=== PATIENT | female | born 1935 | race Caucasian/White ===

== ENCOUNTER 2016-08-29 14:50 | Inpatient (IN) | payer MEDICARE, SELFPAY ==
[2016-08-29] MEDS ORDERED: Diltiazem 25 MG/5 ML SDV IVPUSH ONE ×2 (15:23→17:50)
[2016-08-29] MEDS ORDERED: Diltiazem 125 MG in Sodium Chloride 0.9% 100 ML IV SCH (15:30)
[2016-08-29] MEDS ORDERED: Acetaminophen 325 MG Tab PO PRN (17:07)
[2016-08-29] MEDS: Furosemide 20 MG Tab PO SCH (17:33)
[2016-08-29] MEDS: Fluticasone/Salmeterol 250-50 MCG Inhalation Powder 14/Diskus INH SCH ×2 (17:34→20:43)
[2016-08-29] MEDS: Warfarin 5 MG Tab PO SCH (17:34)
[2016-08-29] MEDS: Metoprolol Succinate 50 MG Tab.ER PO SCH (18:19)
[2016-08-30] MEDS: Furosemide 20 MG Tab PO SCH (08:37)
[2016-08-30] MEDS: Metoprolol Succinate 50 MG Tab.ER PO SCH (08:37)
[2016-08-30] MEDS: Fluticasone/Salmeterol 250-50 MCG Inhalation Powder 14/Diskus INH SCH ×2 (09:01→20:25)
[2016-08-30] MEDS: Warfarin 5 MG Tab PO SCH (10:24)
--- NOTE | 2016-08-30 13:19 | PCM.PN ---
- General Info Date of Service: 08/30/16 Functional Status: Reports: pain controlled, tolerating diet. Denies: ambulating, new symptoms - Review of Systems General: Reports: Weakness HEENT: Reports: no symptoms Pulmonary: Denies: shortness of breath, wheezing Cardiovascular: Reports: Dyspnea on Exertion Gastrointestinal: Reports: No symptoms Genitourinary: Reports: no symptoms Musculoskeletal: Reports: no symptoms Skin: Reports: other (Traumatic small laceration right hand, skin tear) Neurological: Reports: Weakness, Gait Disturbance (Uses walker). Denies: Confusion, Dizziness, Numbness, Syncope Psychiatric: Denies: confusion - Patient Data Vitals - most recent: Last Vital Signs Temp 96.8 F 08/30/16 11:00 Pulse 85 08/30/16 11:00 Resp 20 08/30/16 11:00 BP 101/45 L 08/30/16 11:00 Pulse Ox 93 L 08/30/16 11:00 Weight - most recent: 166 lb 12.8 oz I&O - last 24 hours: Intake & Output 08/29/16 08/30/16 08/30/16 22:59 06:59 14:59 Intake Total 150 383 Balance 150 383 Lab Results last 24 hrs: Laboratory Results - last 24 hr 08/29/16 08/29/16 08/29/16 Range/Units 14:35 14:35 14:35 WBC 9.9 (5.0-10.0) 10^3/uL RBC 4.83 (3.80-5.50) 10^6/uL Hgb 13.1 (12.0-16.0) g/dL Hct 41.6 (37.0-47.0) % MCV 86.1 (82.0-92.0) fL MCH 27.1 (27.0-31.0) pg MCHC 31.5 L (32.0-36.0) g/dL RDW 16.1 H (11.5-14.5) % Plt Count 248 (150-300) 10^3/uL MPV 10.1 (7.4-10.4) fL Neut % (Auto) 80.2 H (50.0-70.0) % Lymph % (Auto) 11.2 L (20.0-40.0) % [place] % (Auto) 7.8 (2.0-8.0) % Eos % (Auto) 0.7 L (1.0-3.0) % Baso % (Auto) 0.1 (0.0-1.0) % Neut # (Auto) 7.9 H (2.5-7.0) 10^3/uL Lymph # (Auto) 1.1 (1.0-4.0) 10^3/uL [place] # (Auto) 0.8 (0.1-0.8) 10^3/uL Eos # (Auto) 0.1 (0.1-0.3) 10^3/uL Baso # (Auto) 0.0 (0.0-0.1) 10^3/uL PT 17.9 H (8.9-11.4) SEC INR 1.7 H (0.9-1.1) Sodium 145 (136-145) mmol/L Potassium 4.0 (3.3-5.3) mmol/L Chloride 108 (98-115) mmol/L Carbon Dioxide 25.8 (21.0-32.0) mmol/L BUN 43 H (6-25) mg/dL Creatinine 1.76 H (0.51-1.17) mg/dL Est Cr Clr Drug Dosing 19.15 mL/min Estimated GFR (MDRD) 28 mL/min Glucose 125 H (70-110) mg/dL Calcium 9.0 (8.7-10.3) mg/dL Total Bilirubin 0.7 (0.2-1.0) mg/dL AST 35 (15-37) U/L ALT 33 (12-78) U/L Alkaline Phosphatase 108 (46-116) IU/L Troponin I 0.06 (0.00-0.070) ng/mL B-Natriuretic Peptide (0-100) pg/mL Total Protein 6.5 (6.4-8.2) g/dL Albumin 2.66 L (3.00-4.80) g/dL 08/30/16 08/30/16 Range/Units 07:00 07:00 WBC (5.0-10.0) 10^3/uL RBC (3.80-5.50) 10^6/uL Hgb (12.0-16.0) g/dL Hct (37.0-47.0) % MCV (82.0-92.0) fL MCH (27.0-31.0) pg MCHC (32.0-36.0) g/dL RDW (11.5-14.5) % Plt Count (150-300) 10^3/uL MPV (7.4-10.4) fL Neut % (Auto) (50.0-70.0) % Lymph % (Auto) (20.0-40.0) % [place] % (Auto) (2.0-8.0) % Eos % (Auto) (1.0-3.0) % Baso % (Auto) (0.0-1.0) % Neut # (Auto) (2.5-7.0) 10^3/uL Lymph # (Auto) (1.0-4.0) 10^3/uL [place] # (Auto) (0.1-0.8) 10^3/uL Eos # (Auto) (0.1-0.3) 10^3/uL Baso # (Auto) (0.0-0.1) 10^3/uL PT 16.6 H (8.9-11.4) SEC INR 1.6 H (0.9-1.1) Sodium 146 H (136-145) mmol/L Potassium 3.5 (3.3-5.3) mmol/L Chloride 109 (98-115) mmol/L Carbon Dioxide 27.5 (21.0-32.0) mmol/L BUN 42 H (6-25) mg/dL Creatinine 1.77 H (0.51-1.17) mg/dL Est Cr Clr Drug Dosing 19.05 mL/min Estimated GFR (MDRD) 27 mL/min Glucose 111 H (70-110) mg/dL Calcium 8.3 L (8.7-10.3) mg/dL Total Bilirubin (0.2-1.0) mg/dL AST (15-37) U/L ALT (12-78) U/L Alkaline Phosphatase (46-116) IU/L Troponin I (0.00-0.070) ng/mL B-Natriuretic Peptide 1130 H (0-100) pg/mL Total Protein (6.4-8.2) g/dL Albumin (3.00-4.80) g/dL Med Orders - Current: Current Medications Acetaminophen (Tylenol) 325 mg PO Q6H PRN PRN Reason: Pain Furosemide (Lasix) 20 mg PO DAILY [facility] Last Admin: 08/30/16 08:37 Dose: 20 mg Metoprolol Succinate (Toprol Xl) 50 mg PO DAILY [facility] Last Admin: 08/30/16 08:37 Dose: 50 mg Fluticasone/Salmeterol (Advair Diskus 250-50) 1 puff INH BID [facility] Last Admin: 08/30/16 09:01 Dose: 1 puff Warfarin Sodium (Coumadin) 5 mg PO DAILY [facility] Last Admin: 08/30/16 10:24 Dose: 5 mg Discontinued Medications Diltiazem HCl (Diltiazem) 15 mg IVPUSH ONETIME ONE Stop: 08/29/16 15:24 Last Admin: 08/29/16 15:43 Dose: 15 mg Diltiazem HCl (Diltiazem) 5 mg IVPUSH ONETIME ONE Stop: 08/29/16 17:51 Last Admin: 08/29/16 18:19 Dose: 5 mg Diltiazem HCl 125 mg/ Sodium (Chloride) 125 mls @ 5 mls/hr IV TITRATE AGATHA; 5 MG /HR PRN Reason: Protocol Last Infusion: 08/29/16 21:40 Dose: 5 mg/hr, 5 mls/hr - Exam Quality Assessment: No: supplemental oxygen General: alert, oriented, cooperative, no acute distress, other (Patient very unkept in appearance, body odor, dirt under nails, skin tear left hand) Neck: supple, no JVD Lungs: Crackles Cardiovascular: Irregular Rhythm, Tachycardia (Tachycardia, improved). No: Regular Rhythm Abdomen: bowel sounds present, soft, no tenderness, no distension Back Exam: No: CVA tenderness (L), CVA tenderness (R), vertebral tenderness Peripheral Pulses: 2+: radial (L), radial (R) Skin: dry, other (Skin overall dry and uncapped--dirt under fingernails, skin very thin). No: intact Wound/Incisions: no drainage, other (1 cm linear skin tear left dorsal hand/ thumb) Neurological: no new focal deficit, normal tone, sensation intact Psy/Mental Status: alert, normal affect, labile mood - Problem List Review Problem List Initiated/Reviewed/Updated: Yes - My Orders Last 24 Hours: My Active Orders 08/29/16 17:07 Acetaminophen [Tylenol] 325 mg PO Q6H PRN 08/29/16 17:15 Fluticasone/Salmeterol [Advair Diskus 250-50] 1 puff INH BID Furosemide [Lasix] 20 mg PO DAILY 08/29/16 17:30 Warfarin [Coumadin] 5 mg PO DAILY 08/29/16 17:45 Metoprolol Succinate [Toprol XL] 50 mg PO DAILY 08/30/16 11:58 Patient Status [ADT] Routine Consult to Sow Farm Manager [CONS] Routine PT Evaluation and Treatment [CONS] Routine 08/31/16 11:58 INR,PT,PROTHROMBIN TIME [COAG] DAILY 09/01/16 11:58 INR,PT,PROTHROMBIN TIME [COAG] DAILY 09/02/16 11:58 INR,PT,PROTHROMBIN TIME [COAG] DAILY - Plan Plan:: Brief history; This is an 81-year-old female was evaluated by [place] provider yesterday for routine appointment and was admitted atrial fibrillation when she was found to be in rapid ventricular response about 1 55 bpm. Her 12-lead EKG in the [place] clinic demonstrated atrial fibrillation with RVR with a rate of 155. Patient was asymptomatic and tolerating the rate fairly well. She did not hemodynamically stable. She does have chronic atrial fibrillation and was on 3 mg of Coumadin daily along with metoprolol succinate 200 mg daily however there is some confusion regarding if she is taking her medications or not. She was admitted directly to the cardiac care unit and a Cardizem drip was started after initial CCB IVP. See admitting provider history and physical for greater detail CODE STATUS DO NOT RESUSCITATE IMPRESSION/PLAN Atrial fibrillation, RVR, acute on chronic, rate control strategy, heart rate now 90s to 110. Discontinued diltiazem drip, added beta marci yesterday, we' ll keep her on 50 mg by mouth succinate daily--holding parameters. Coumadin 3 mg by mouth daily. INR 1.7, continue telemetry but may move from CCU. Echocardiogram 2008 shows EF of 35%, we'll need repeat echocardiogram. [id number] : High. Ischemic cardiomyopathy--important to keep breakdown, troponin negative. No chest pain. Hx of HTN; actually slightly low right now. Metoprolol parameters given. Hypercholesterolemia; taking atorvastatin. Hx of COPD; pharmacy consultation for education, apparently patient taking Advair as needed. Chronic kidney disease, stage III, Vulnerable adult; SS CS Self care deficit, quite profound on admission, social organization professor consultation. She was recently discharged from [facility] in [place]. She resides at home in [place], [place], with her son. Her daughter lives next door--likely will have to go to [place] however family financial situation may make it difficult. May have to place in a vulnerable adult report. Overall plan today, rate control strategy--metoprolol, remove diltiazem drip, start back up on Coumadin--as the patient may not have been taking this at home. No need for Lovenox bridging, continue telemetry but may move from CCU, heart rate parameters. SS consult.
[2016-08-30] MEDS ORDERED: Furosemide 40 MG/4 ML VIAL IVPUSH ONE (16:00)
[2016-08-30] MEDS: Magnesium Hydroxide 400 MG/5 ML Susp 30 ML Cup PO PRN (20:25)
[2016-08-30] MEDS ORDERED: Enoxaparin 60 MG/0.6 ML Syringe SUBCUT SCH (21:30)
[2016-08-30] MEDS ORDERED: Enoxaparin 100 MG/1 ML Syringe SUBCUT ONE (22:39)
[2016-08-31] MEDS: Metoprolol Succinate 50 MG Tab.ER PO SCH (08:24)
[2016-08-31] MEDS: Furosemide 20 MG Tab PO SCH (08:24)
[2016-08-31] MEDS: Fluticasone/Salmeterol 250-50 MCG Inhalation Powder 14/Diskus INH SCH ×2 (08:54→20:38)
[2016-08-31] MEDS ORDERED: Metoprolol Succinate 25 MG Tab.ER PO ONE (09:16)
--- NOTE | 2016-08-31 10:48 | PCM.PN ---
- General Info Date of Service: 08/31/16 Functional Status: Reports: pain controlled, tolerating diet, new symptoms ( odor to urine--chronic--obtain UA today. ), other (HR low 100's). Denies: ambulating - Review of Systems General: Reports: Weakness. Denies: Fever HEENT: Reports: no symptoms Pulmonary: Denies: pleuritic chest pain, cough, sputum Cardiovascular: Reports: Dyspnea on Exertion Gastrointestinal: Reports: No symptoms Genitourinary: Reports: incontinence (urine ) Musculoskeletal: Reports: no symptoms Skin: Reports: dryness, bruising Neurological: Reports: Pre-Existing Deficit, Weakness, Gait Disturbance. Denies : Dizziness, Tremors, Difficulty Walking, Change in Speech Psychiatric: Reports: no symptoms - Patient Data Vitals - most recent: Last Vital Signs Temp 96.8 F 08/31/16 06:57 Pulse 120 H 08/31/16 08:54 Resp 22 H 08/31/16 06:57 BP 121/38 L 08/31/16 08:24 Pulse Ox 96 08/31/16 08:54 Weight - most recent: 166 lb 12.8 oz I&O - last 24 hours: Intake & Output 08/30/16 08/31/16 08/31/16 22:59 06:59 14:59 Intake Total 150 75 Balance 150 75 Lab Results last 24 hrs: Laboratory Results - last 24 hr 08/30/16 08/31/16 08/31/16 Range/Units 07:00 07:15 07:25 ESR 6 (0-20) mm/hr PT 16.6 H 20.6 H (8.9-11.4) SEC INR 1.6 H 2.0 H (0.9-1.1) Med Orders - Current: Current Medications Acetaminophen (Tylenol) 325 mg PO Q6H PRN PRN Reason: Pain Furosemide (Lasix) 20 mg PO DAILY [facility] Last Admin: 08/31/16 08:24 Dose: 20 mg Magnesium Hydroxide (Milk Of Magnesia) 30 ml PO DAILY PRN PRN Reason: Constipation Last Admin: 08/30/16 20:25 Dose: 30 ml Metoprolol Succinate (Toprol Xl) 75 mg PO DAILY [facility] Fluticasone/Salmeterol (Advair Diskus 250-50) 1 puff INH BID [facility] Last Admin: 08/31/16 08:54 Dose: 1 puff Warfarin Sodium (Coumadin) 4 mg PO DAILY@1800 [facility] Discontinued Medications Diltiazem HCl (Diltiazem) 15 mg IVPUSH ONETIME ONE Stop: 08/29/16 15:24 Last Admin: 08/29/16 15:43 Dose: 15 mg Diltiazem HCl (Diltiazem) 5 mg IVPUSH ONETIME ONE Stop: 08/29/16 17:51 Last Admin: 08/29/16 18:19 Dose: 5 mg Enoxaparin Sodium (Lovenox) 75 mg SUBCUT Q12HR AGATHA Enoxaparin Sodium (Lovenox) 75 mg SUBCUT QPM AGATHA Enoxaparin Sodium (Lovenox) 75 mg SUBCUT ONETIME ONE Stop: 08/30/16 22:40 Last Admin: 08/30/16 22:57 Dose: 75 mg Furosemide (Lasix) 20 mg IVPUSH NOW ONE Stop: 08/30/16 16:01 Last Admin: 08/30/16 15:58 Dose: 20 mg Diltiazem HCl 125 mg/ Sodium (Chloride) 125 mls @ 5 mls/hr IV TITRATE AGATHA; 5 MG /HR PRN Reason: Protocol Last Infusion: 08/29/16 21:40 Dose: 5 mg/hr, 5 mls/hr Metoprolol Succinate (Toprol Xl) 50 mg PO DAILY [facility] Last Admin: 08/31/16 08:24 Dose: 50 mg Metoprolol Succinate (Toprol Xl) 25 mg PO ONETIME ONE Stop: 08/31/16 09:17 Warfarin Sodium (Coumadin) 5 mg PO DAILY [facility] Last Admin: 08/30/16 10:24 Dose: 5 mg Warfarin Sodium (Coumadin) 5 mg PO DAILY@1800 [facility] - Exam General: alert, oriented (nurses did report some confusion last shifts) Neck: supple, no thyromegaly. No: JVD Lungs: Clear to auscultation, Normal respiratory effort Cardiovascular: Irregular Rhythm, Tachycardia (Female) Exam: Deferred Back Exam: No: CVA tenderness (L), CVA tenderness (R) Skin: No: rash Wound/Incisions: healing well Neurological: no new focal deficit Psy/Mental Status: alert, normal affect, normal mood - Problem List Review Problem List Initiated/Reviewed/Updated: Yes - My Orders Last 24 Hours: My Active Orders 08/30/16 11:58 Patient Status [ADT] Routine Consult to Salary And Wage Administrator [CONS] Routine PT Evaluation and Treatment [CONS] Routine 08/31/16 09:18 UA W/MICROSCOPIC [URIN] Routine 08/31/16 18:00 Warfarin [Coumadin] 4 mg PO DAILY@1800 09/01/16 05:11 BASIC METABOLIC PANEL,BMP [CHEM] AM CBC WITH AUTO DIFF [HEME] AM 09/01/16 09:16 Metoprolol Succinate [Toprol XL] 75 mg PO DAILY 09/01/16 11:58 INR,PT,PROTHROMBIN TIME [COAG] DAILY 09/02/16 11:58 INR,PT,PROTHROMBIN TIME [COAG] DAILY - Plan Plan:: Brief history; This is an 81-year-old female was evaluated by [place] provider yesterday for routine appointment and was admitted atrial fibrillation when she was found to be in rapid ventricular response about 1 55 bpm. Her 12-lead EKG in the [place] clinic demonstrated atrial fibrillation with RVR with a rate of 155. Patient was asymptomatic and tolerating the rate fairly well. She did not hemodynamically stable. She does have chronic atrial fibrillation and was on 3 mg of Coumadin daily along with metoprolol succinate 200 mg daily however there is some confusion regarding if she is taking her medications or not. She was admitted directly to the cardiac care unit and a Cardizem drip was started after initial CCB IVP. See admitting provider history and physical for greater detail CODE STATUS DO NOT RESUSCITATE IMPRESSION/PLAN Atrial fibrillation, RVR, acute on chronic, rate control strategy, heart rate around 100-110 depending on activity; Now off diltiazem drip, added beta marci yesterday, Holding adequate BP will increase to 75 succinate daily-- holding parameters. DC lovenox, Coumadin 4 mg by mouth today now with therapueutic INR continue telemetry. Echocardiogram 2008 shows EF of 35%, ECHO today--some concern if Pericardial fluid--order ESR. [id number]: High. Lasix. Ischemic cardiomyopathy--important to keep HR down. troponin negative. No chest pain. Hx of HTN; actually slightly low right now. Metoprolol parameters given; however adequate to increase BB Hypercholesterolemia; taking atorvastatin. Hx of COPD; pharmacy consultation for education, apparently patient taking Advair as needed. Chronic kidney disease, stage III, stable Vulnerable adult; SS CS Self care deficit, quite profound on admission, social media assistant consultation. She was recently discharged from [facility] in [place]. She resides at home in [place], [place], with her son. Her daughter lives next door--likely will have to go to [place] however family financial situation may make it difficult. May have to place in a vulnerable adult report. Overall plan today, Increase BB for improved rate control strategy--metoprolol, DC lovenox, continue telemetry, heart rate parameters. SS consult. May have to back to [place], will get UA today.
[2016-08-31] MEDS ORDERED: Warfarin 5 MG Tab PO SCH (18:00)
[2016-08-31] MEDS: Warfarin 2 MG Tab PO SCH (18:19)
[2016-08-31] MEDS: Magnesium Hydroxide 400 MG/5 ML Susp 30 ML Cup PO PRN (18:20)
[2016-08-31] MEDS ORDERED: Enoxaparin 100 MG/1 ML Syringe SUBCUT SCH (21:00)
[2016-08-31] MEDS: Ciprofloxacin 500 MG Tab PO SCH (23:27)
[2016-09-01] MEDS: Ciprofloxacin 500 MG Tab PO SCH ×2 (08:48→20:34)
[2016-09-01] MEDS: Furosemide 20 MG Tab PO SCH (08:48)
[2016-09-01] MEDS: Fluticasone/Salmeterol 250-50 MCG Inhalation Powder 14/Diskus INH SCH ×2 (08:54→20:33)
[2016-09-01] MEDS ORDERED: Metoprolol Succinate 50 MG Tab.ER PO SCH (09:16)
--- NOTE | 2016-09-01 11:12 | PCM.PN ---
- General Info Date of Service: 09/01/16 Functional Status: Reports: pain controlled. Denies: ambulating, new symptoms - Review of Systems General: Reports: Weakness HEENT: Reports: no symptoms Pulmonary: Reports: shortness of breath (Mild shortness of breath) Cardiovascular: Reports: Dyspnea on Exertion (. Abran Guerrier or warm and he is not nurses cardiac) Gastrointestinal: Reports: No symptoms Genitourinary: Reports: incontinence. Denies: dysuria, pain, urgency Musculoskeletal: Denies: back pain, joint swelling Skin: Reports: dryness, bruising, other (Healing skin tear left base of thumb) Neurological: Reports: Confusion (Mild confusion at times however lucid today), Pre-Existing Deficit, Difficulty Walking, Weakness, Gait Disturbance. Denies: Dizziness, Seizure, Syncope Psychiatric: Reports: confusion - Patient Data Vitals - most recent: Last Vital Signs Temp 97.1 F 09/01/16 06:17 Pulse 96 09/01/16 08:49 Resp 20 09/01/16 06:17 BP 142/69 H 09/01/16 08:49 Pulse Ox 97 09/01/16 09:03 Weight - most recent: 166 lb 3 oz I&O - last 24 hours: Intake & Output 08/31/16 09/01/16 09/01/16 22:59 06:59 14:59 Intake Total 50 100 Balance 50 100 Lab Results last 24 hrs: Laboratory Results - last 24 hr 08/31/16 09/01/16 09/01/16 Range/Units 13:45 07:30 07:30 WBC 8.8 (5.0-10.0) 10^3/uL RBC 4.41 (3.80-5.50) 10^6/uL Hgb 12.5 (12.0-16.0) g/dL Hct 38.3 (37.0-47.0) % MCV 86.9 (82.0-92.0) fL MCH 28.2 (27.0-31.0) pg MCHC 32.5 (32.0-36.0) g/dL RDW 17.2 H (11.5-14.5) % Plt Count 188 (150-300) 10^3/uL MPV 10.4 (7.4-10.4) fL Neut % (Auto) 71.6 H (50.0-70.0) % Lymph % (Auto) 14.6 L (20.0-40.0) % [place] % (Auto) 10.2 H (2.0-8.0) % Eos % (Auto) 3.6 H (1.0-3.0) % Baso % (Auto) 0.0 (0.0-1.0) % Neut # (Auto) 6.3 (2.5-7.0) 10^3/uL Lymph # (Auto) 1.3 (1.0-4.0) 10^3/uL [place] # (Auto) 0.9 H (0.1-0.8) 10^3/uL Eos # (Auto) 0.3 (0.1-0.3) 10^3/uL Baso # (Auto) 0.0 (0.0-0.1) 10^3/uL PT INR (0.9-1.1) Sodium 145 (136-145) mmol/L Potassium 4.8 (3.3-5.3) mmol/L Chloride 110 (98-115) mmol/L Carbon Dioxide 26.3 (21.0-32.0) mmol/L BUN 46 H (6-25) mg/dL Creatinine 1.68 H (0.51-1.17) mg/dL Est Cr Clr Drug Dosing 20.07 mL/min Estimated GFR (MDRD) 29 mL/min Glucose 105 (70-110) mg/dL Calcium 8.2 L (8.7-10.3) mg/dL Specimen Type Urin[place]ath Urine Color Yellow (YELLOW) Urine Appearance Cloudy H (CLEAR) Urine pH 6.5 (5.0-9.0) Ur Specific [place] 1.020 (1.005-1.030) Urine Protein >=300 H (NEGATIVE) mg/dL Urine Glucose (UA) Negative (NEGATIVE) mg/dL Urine Ketones Negative (NEGATIVE) mg/dL Urine Occult Blood Large H (NEGATIVE) Urine Nitrite Negative (NEGATIVE) Urine Bilirubin Negative (NEGATIVE) Urine Urobilinogen 0.2 (0.2-1.0) E.U./dL Ur Leukocyte Esterase Large H (NEGATIVE) Urine RBC 40-50 H /HPF Urine WBC 30-40 H /HPF Urine Bacteria Moderate H (NONE TO FEW) /HPF 09/01/16 Range/Units 08:05 WBC (5.0-10.0) 10^3/uL RBC (3.80-5.50) 10^6/uL Hgb (12.0-16.0) g/dL Hct (37.0-47.0) % MCV (82.0-92.0) fL MCH (27.0-31.0) pg MCHC (32.0-36.0) g/dL RDW (11.5-14.5) % Plt Count (150-300) 10^3/uL MPV (7.4-10.4) fL Neut % (Auto) (50.0-70.0) % Lymph % (Auto) (20.0-40.0) % [place] % (Auto) (2.0-8.0) % Eos % (Auto) (1.0-3.0) % Baso % (Auto) (0.0-1.0) % Neut # (Auto) (2.5-7.0) 10^3/uL Lymph # (Auto) (1.0-4.0) 10^3/uL [place] # (Auto) (0.1-0.8) 10^3/uL Eos # (Auto) (0.1-0.3) 10^3/uL Baso # (Auto) (0.0-0.1) 10^3/uL PT TNP INR 2.6 H (0.9-1.1) Sodium (136-145) mmol/L Potassium (3.3-5.3) mmol/L Chloride (98-115) mmol/L Carbon Dioxide (21.0-32.0) mmol/L BUN (6-25) mg/dL Creatinine (0.51-1.17) mg/dL Est Cr Clr Drug Dosing mL/min Estimated GFR (MDRD) mL/min Glucose (70-110) mg/dL Calcium (8.7-10.3) mg/dL Specimen Type Urine Color (YELLOW) Urine Appearance (CLEAR) Urine pH (5.0-9.0) Ur Specific [place] (1.005-1.030) Urine Protein (NEGATIVE) mg/dL Urine Glucose (UA) (NEGATIVE) mg/dL Urine Ketones (NEGATIVE) mg/dL Urine Occult Blood (NEGATIVE) Urine Nitrite (NEGATIVE) Urine Bilirubin (NEGATIVE) Urine Urobilinogen (0.2-1.0) E.U./dL Ur Leukocyte Esterase (NEGATIVE) Urine RBC /HPF Urine WBC /HPF Urine Bacteria (NONE TO FEW) /HPF Med Orders - Current: Current Medications Acetaminophen (Tylenol) 325 mg PO Q6H PRN PRN Reason: Pain Ciprofloxacin (Ciprofloxacin Hcl) 500 mg PO BID [facility] Last Admin: 09/01/16 08:48 Dose: 500 mg Furosemide (Lasix) 20 mg PO DAILY [facility] Last Admin: 09/01/16 08:48 Dose: 20 mg Magnesium Hydroxide (Milk Of Magnesia) 30 ml PO DAILY PRN PRN Reason: Constipation Last Admin: 08/31/16 18:20 Dose: 30 ml Metoprolol Succinate (Toprol Xl) 75 mg PO DAILY [facility] Last Admin: 09/01/16 08:49 Dose: 75 mg Fluticasone/Salmeterol (Advair Diskus 250-50) 1 puff INH BID [facility] Last Admin: 09/01/16 08:54 Dose: 1 puff Warfarin Sodium (Coumadin) 4 mg PO DAILY@1800 [facility] Last Admin: 08/31/16 18:19 Dose: 4 mg Discontinued Medications Diltiazem HCl (Diltiazem) 15 mg IVPUSH ONETIME ONE Stop: 08/29/16 15:24 Last Admin: 08/29/16 15:43 Dose: 15 mg Diltiazem HCl (Diltiazem) 5 mg IVPUSH ONETIME ONE Stop: 08/29/16 17:51 Last Admin: 08/29/16 18:19 Dose: 5 mg Enoxaparin Sodium (Lovenox) 75 mg SUBCUT Q12HR [facility] Enoxaparin Sodium (Lovenox) 75 mg SUBCUT QPM [facility] Enoxaparin Sodium (Lovenox) 75 mg SUBCUT ONETIME ONE Stop: 08/30/16 22:40 Last Admin: 08/30/16 22:57 Dose: 75 mg Furosemide (Lasix) 20 mg IVPUSH NOW ONE Stop: 08/30/16 16:01 Last Admin: 08/30/16 15:58 Dose: 20 mg Diltiazem HCl 125 mg/ Sodium (Chloride) 125 mls @ 5 mls/hr IV TITRATE AGATHA; 5 MG /HR PRN Reason: Protocol Last Infusion: 08/29/16 21:40 Dose: 5 mg/hr, 5 mls/hr Metoprolol Succinate (Toprol Xl) 50 mg PO DAILY [facility] Last Admin: 08/31/16 08:24 Dose: 50 mg Metoprolol Succinate (Toprol Xl) 25 mg PO ONETIME ONE Stop: 08/31/16 09:17 Last Admin: 08/31/16 14:23 Dose: 25 mg Warfarin Sodium (Coumadin) 5 mg PO DAILY [facility] Last Admin: 08/30/16 10:24 Dose: 5 mg Warfarin Sodium (Coumadin) 5 mg PO DAILY@1800 [facility] - Exam General: alert, oriented Neck: supple, no JVD Lungs: Crackles (Left base) Cardiovascular: Irregular Rhythm. No: Tachycardia (Heart rate 90 to 100s) Abdomen: bowel sounds present, soft, no tenderness, no distension Back Exam: No: CVA tenderness (L), CVA tenderness (R) Wound/Incisions: healing well (Bruise left corner mouth healing, will wait on that for one are RVR it'll U. of the renal arteries with weight with anesthesia no yesterday at goal yesterday an EF of 15-20% no EF rales E. EF the left of note pleural effusion there is no evidence of pericardial effusion he is) Neurological: cranial nerves intact Psy/Mental Status: alert, normal mood - Problem List Review Problem List Initiated/Reviewed/Updated: Yes - My Orders Last 24 Hours: My Active Orders 08/31/16 18:00 Warfarin [Coumadin] 4 mg PO DAILY@1800 09/01/16 09:16 Metoprolol Succinate [Toprol XL] 75 mg PO DAILY 09/02/16 11:58 INR,PT,PROTHROMBIN TIME [COAG] DAILY - Plan Plan:: Brief history; This is an 81-year-old female was evaluated by [place] provider yesterday for routine appointment and was admitted atrial fibrillation when she was found to be in rapid ventricular response about 1 55 bpm. Her 12-lead EKG in the [facility] clinic demonstrated atrial fibrillation with RVR with a rate of 155. Patient was asymptomatic and tolerating the rate fairly well. She did not hemodynamically stable. She does have chronic atrial fibrillation and was on 3 mg of Coumadin daily along with metoprolol succinate 200 mg daily however there is some confusion regarding if she is taking her medications or not. She was admitted directly to the cardiac care unit and a Cardizem drip was started after initial CCB IVP. See admitting provider history and physical for greater detail CODE STATUS DO NOT RESUSCITATE IMPRESSION/PLAN Atrial fibrillation, RVR, acute on chronic, rate control strategy, heart rate have improved to around 95-105. Now off diltiazem drip, had been slowly increasing her metoprolol succinate. Will increase to 100 mg today--blood pressure very adequate. Coumadin 4 mg by mouth today now with therapueutic INR. continue telemetry. Echocardiogram 2008 shows EF of 35%, ECHO this admission shows EF 15-20% however no evidence of paracardial effusion. Left pleural effusion is present; [id number]: High. Due to pleural effusion we'll give 20 mg IV Lasix today. Aggressive incentives spirometer. Left pleural effusion; Lasix today x1. Ischemic cardiomyopathy--important to keep HR down. troponin negative. No chest pain. Hx of HTN; increasing metoprolol for rate control due to A. fib. Hypercholesterolemia; taking atorvastatin. Hx of COPD; pharmacy consultation for education, apparently patient taking Advair as needed. Chronic kidney disease, stage III, stable , creatinine 1.68 Vulnerable adult; SS CS Self care deficit, quite profound on admission, social work msw consultation. She was recently discharged from [facility] in [place]. She resides at home in [place], [place], with her son. Her daughter lives next door--likely will have to go to [place] however family financial situation may make it difficult. May have to place in a vulnerable adult report. Overall plan today, Increase BB for improved rate control strategy--metoprolol, continue telemetry, heart rate parameters. Patient can be discharged likely tomorrow to [place]. Lasix today x1. Continue on ciprofloxacin for urinary tract infection. Prognosis is poor due to severe low ejection fraction. Patient not a candidate for internal cardiac defibrillator due to age, comorbidities.
[2016-09-01] MEDS ORDERED: Metoprolol Succinate 25 MG Tab.ER PO ONE (11:21)
[2016-09-01] MEDS: Warfarin 2 MG Tab PO SCH (18:10)
[2016-09-02] MEDS: Fluticasone/Salmeterol 250-50 MCG Inhalation Powder 14/Diskus INH SCH ×2 (08:20→20:41)
[2016-09-02] MEDS: Magnesium Hydroxide 400 MG/5 ML Susp 30 ML Cup PO PRN (08:21)
[2016-09-02] MEDS: Furosemide 20 MG Tab PO SCH (08:22)
[2016-09-02] MEDS: Ciprofloxacin 500 MG Tab PO SCH ×2 (08:22→20:41)
[2016-09-02] MEDS ORDERED: Metoprolol Succinate 25 MG Tab.ER PO ONE (08:26)
[2016-09-02] MEDS ORDERED: Metoprolol Succinate 50 MG Tab.ER PO SCH (09:00)
--- NOTE | 2016-09-02 11:58 | PCM.PN ---
- General Info Date of Service: 09/02/16 Functional Status: Reports: pain controlled, tolerating diet, incentive spirometry. Denies: ambulating, new symptoms - Review of Systems General: Reports: Weakness HEENT: Reports: no symptoms Pulmonary: Denies: cough Cardiovascular: Reports: Palpitations, Dyspnea on Exertion. Denies: Edema Gastrointestinal: Reports: No symptoms Genitourinary: Reports: other (odor to urine--chronic). Denies: dysuria Musculoskeletal: Reports: no symptoms Skin: Reports: dryness, bruising Neurological: Reports: Pre-Existing Deficit, Difficulty Walking, Weakness, Gait Disturbance. Denies: Numbness, Paresthesia Psychiatric: Reports: no symptoms - Patient Data Vitals - most recent: Last Vital Signs Temp 97.9 F 09/02/16 10:54 Pulse 71 09/02/16 10:54 Resp 20 09/02/16 10:54 BP 112/68 09/02/16 10:54 Pulse Ox 94 L 09/02/16 10:54 Weight - most recent: 166 lb 3 oz I&O - last 24 hours: Intake & Output 09/01/16 09/02/16 09/02/16 22:59 06:59 14:59 Intake Total 100 0 Balance 100 0 Lab Results last 24 hrs: Laboratory Results - last 24 hr 09/02/16 Range/Units 07:20 PT 24.8 H (8.9-11.4) SEC INR 2.4 H (0.9-1.1) [place] Results last 24 hrs: Microbiology 08/31/16 13:45 Urine Culture - Preliminary Urine, Catheterized Enterococcus Species Med Orders - Current: Current Medications Acetaminophen (Tylenol) 325 mg PO Q6H PRN PRN Reason: Pain Ciprofloxacin (Ciprofloxacin Hcl) 500 mg PO BID [facility] Last Admin: 09/02/16 08:22 Dose: 500 mg Furosemide (Lasix) 20 mg PO DAILY [facility] Last Admin: 09/02/16 08:22 Dose: 20 mg Magnesium Hydroxide (Milk Of Magnesia) 30 ml PO DAILY PRN PRN Reason: Constipation Last Admin: 09/02/16 08:21 Dose: 30 ml Metoprolol Succinate (Toprol Xl) 100 mg PO DAILY [facility] Last Admin: 09/02/16 08:23 Dose: 100 mg Metoprolol Succinate (Toprol Xl) 125 mg PO DAILY [facility] Fluticasone/Salmeterol (Advair Diskus 250-50) 1 puff INH BID [facility] Last Admin: 09/02/16 08:20 Dose: 1 puff Warfarin Sodium (Coumadin) 4 mg PO DAILY@1800 [facility] Last Admin: 09/01/16 18:10 Dose: 4 mg Discontinued Medications Diltiazem HCl (Diltiazem) 15 mg IVPUSH ONETIME ONE Stop: 08/29/16 15:24 Last Admin: 08/29/16 15:43 Dose: 15 mg Diltiazem HCl (Diltiazem) 5 mg IVPUSH ONETIME ONE Stop: 08/29/16 17:51 Last Admin: 08/29/16 18:19 Dose: 5 mg Enoxaparin Sodium (Lovenox) 75 mg SUBCUT Q12HR [facility] Enoxaparin Sodium (Lovenox) 75 mg SUBCUT QPM [facility] Enoxaparin Sodium (Lovenox) 75 mg SUBCUT ONETIME ONE Stop: 08/30/16 22:40 Last Admin: 08/30/16 22:57 Dose: 75 mg Furosemide (Lasix) 20 mg IVPUSH NOW ONE Stop: 08/30/16 16:01 Last Admin: 08/30/16 15:58 Dose: 20 mg Diltiazem HCl 125 mg/ Sodium (Chloride) 125 mls @ 5 mls/hr IV TITRATE AGATHA; 5 MG /HR PRN Reason: Protocol Last Infusion: 08/29/16 21:40 Dose: 5 mg/hr, 5 mls/hr Metoprolol Succinate (Toprol Xl) 50 mg PO DAILY [facility] Last Admin: 08/31/16 08:24 Dose: 50 mg Metoprolol Succinate (Toprol Xl) 25 mg PO ONETIME ONE Stop: 08/31/16 09:17 Last Admin: 08/31/16 14:23 Dose: 25 mg Metoprolol Succinate (Toprol Xl) 75 mg PO DAILY [facility] Last Admin: 09/01/16 08:49 Dose: 75 mg Metoprolol Succinate (Toprol Xl) 25 mg PO ONETIME ONE Stop: 09/01/16 11:22 Last Admin: 09/01/16 11:49 Dose: 25 mg Metoprolol Succinate (Toprol Xl) 25 mg PO ONETIME ONE Stop: 09/02/16 08:27 Last Admin: 09/02/16 08:41 Dose: 25 mg Warfarin Sodium (Coumadin) 5 mg PO DAILY [facility] Last Admin: 08/30/16 10:24 Dose: 5 mg Warfarin Sodium (Coumadin) 5 mg PO DAILY@1800 [facility] - Exam Quality Assessment: No: supplemental oxygen General: alert, oriented, cooperative, no acute distress HEENT: Other (dry mucous membranes). No: Mucous membr. moist/pink Neck: supple Lungs: Clear to auscultation, Normal respiratory effort Cardiovascular: Irregular Rhythm, Tachycardia Wound/Incisions: healing well, no drainage Neurological: no new focal deficit Psy/Mental Status: alert, normal affect, normal mood - Problem List Review Problem List Initiated/Reviewed/Updated: Yes - My Orders Last 24 Hours: My Active Orders 09/02/16 09:00 Metoprolol Succinate [Toprol XL] 100 mg PO DAILY 09/03/16 05:11 BASIC METABOLIC PANEL,BMP [CHEM] AM CBC WITH AUTO DIFF [HEME] AM 09/03/16 09:00 Metoprolol Succinate [Toprol XL] 125 mg PO DAILY - Plan Plan:: Brief history; This is an 81-year-old female was evaluated by [place] provider yesterday for routine appointment and was admitted atrial fibrillation when she was found to be in rapid ventricular response about 1 55 bpm. Her 12-lead EKG in the [place] clinic demonstrated atrial fibrillation with RVR with a rate of 155. Patient was asymptomatic and tolerating the rate fairly well. She did not hemodynamically stable. She does have chronic atrial fibrillation and was on 3 mg of Coumadin daily along with metoprolol succinate 200 mg daily however there is some confusion regarding if she is taking her medications or not. She was admitted directly to the cardiac care unit and a Cardizem drip was started after initial CCB IVP. See admitting provider history and physical for greater detail CODE STATUS DO NOT RESUSCITATE IMPRESSION/PLAN Atrial fibrillation, RVR, acute on chronic, rate control strategy, heart rate have improved to around 95-105. Now off diltiazem drip, had been slowly increasing her metoprolol succinate. Will increase to 125 mg today--blood pressure/MAP adequate. Coumadin 4 mg by mouth today now with therapueutic INR. continue telemetry. Echocardiogram 2008 shows EF of 35%, ECHO this admission shows EF 15-20% however no evidence of paracardial effusion. Left pleural effusion is present; [id number]: High. A little on dry side with increasing BUN/ creatinine ratio likely prerenal, HOLD Lasix--push oral fluids. Aggressive incentives spirometer. Left pleural effusion; aggressive incentive spirometer--especially since holding Lasix Ischemic cardiomyopathy--important to keep HR down. troponin negative. No chest pain. very poor EF--poor prognosis. Prognosis is poor due to severe low ejection fraction. Patient not a candidate for internal cardiac defibrillator due to age, comorbidities. Hx of HTN; increasing metoprolol for rate control due to A. fib. Hypercholesterolemia; taking atorvastatin. Hx of COPD; pharmacy consultation for education, apparently patient taking Advair as needed. Chronic kidney disease, stage III, stable , creatinine 1.68 Vulnerable adult; SS CS Self care deficit, quite profound on admission, director social service consultation. She was recently discharged from [facility] in [place]. She resides at home in [place], [place], with her son. Her daughter lives next door--plan was to send her back to [place] today however heart rate not optimal inpatient a little prerenal--likely discharge Monday.
[2016-09-02] MEDS: Warfarin 2 MG Tab PO SCH (18:12)
[2016-09-03] MEDS: Fluticasone/Salmeterol 250-50 MCG Inhalation Powder 14/Diskus INH SCH ×2 (08:15→20:38)
[2016-09-03] MEDS: Ciprofloxacin 500 MG Tab PO SCH ×2 (08:15→20:38)
[2016-09-03] MEDS: Metoprolol Succinate 50 MG Tab.ER PO SCH (08:15)
--- NOTE | 2016-09-03 12:33 | PN ---
09/03/2016 PATIENT NAME: DEBI BALDWIN SUBJECTIVE: This is an 81-year-old female patient who was admitted from the clinic with concerns about atrial fibrillation with rapid ventricular response. The patient was actually admitted to the cardiac intensive care unit on a Cardizem drip. Since then, her heart rate has come down. Her Cardizem drip has been discontinued. She states today she is feeling fine. She does have a little dementia, but she is very pleasant, answers simple questions very easily. She states she has no chest pain. She feels fine. She denies any swelling to her ankles. She states she ate breakfast with no problems. OBJECTIVE: VITAL SIGNS: Today, the patient's weight is 167 pounds, temperature is 97.4, pulse is 98, blood pressure is 124/74. The patient's respiratory rate is 20, oxygen saturations are 97% on room air. GENERAL: This is an elderly female, in no acute distress. CARDIAC: Heart sounds are distant. Irregularly irregular consistent with atrial fibrillation. LUNGS: Sounds are clear in upper lobes, diminished at bilateral bases. ABDOMEN: Her abdomen is soft, nontender, and nondistended. Bowel sounds present x4. EXTREMITIES: No pedal edema noted on exam. LABORATORY DATA: The patient's lab work that she had today, CBC shows a white count within normal range at 8.5, hemoglobin is stable at 12.5. The patient's platelet count is 177. The patient's INR yesterday was 2.4. Her chemistry panel that was obtained today is unremarkable except for shows that she has chronic kidney disease. Her BUN is elevated at 50, creatinine is 1.91, GFR is 25, otherwise unremarkable. IMPRESSION/PLAN: 1. Chronic atrial fibrillation with recent episode of atrial fibrillation with rapid ventricular response. Plan; the patient's pulse on exam today was 98. Her Cardizem drip has been discontinued. We will continue with Toprol- XL 125 mg orally daily. Continue with Coumadin. She got 4 mg daily ordered. INR yesterday was 2.4. We will continue with telemetry. She has been in atrial fibrillation with a rate between 80 and 100 mostly. The patient's recent echocardiogram showed an ejection fraction of 15% to 20%. We are currently holding the patient's Lasix at this time, mostly due to just her chronic kidney disease or repeat a basic metabolic panel in the morning. 2. Urinary tract infection. Plan; the patient's urinalysis that she had taken a few days ago showed moderate bacteria. We will continue with Cipro 500 mg twice daily orally. 3. Left pleural effusion. Plan; seems to be stable. We will continue with incentive spirometer every two hours while awake. 4. History of hypertension, stable. The patient's blood pressure today is 124/74. We will continue with Toprol-XL 125 mg daily. Continue to monitor blood pressures. 5. History of hyperlipidemia. Plan; the patient's atorvastatin is on hold for now. 6. We will consider restarting it back up. The patient has been pretty stable. 7. History of chronic obstructive pulmonary disease. Plan; continue with Advair Diskus twice daily. 8. History of chronic kidney disease stage IV. The patient's BUN today was 50 creatinine was 1.91. GFR of 25. We will repeat a basic metabolic panel tomorrow. May consider some IV hydration if no improvement. Overall plan; the patient seems to be doing well. Plan for a discharge to [facility] in [place] on Monday. /[id number]/MODL
[2016-09-03] MEDS ORDERED: EPINEPHrine 1:10,000 1 MG/10 ML Syringe IVPUSH PRN (16:54)
[2016-09-03] MEDS ORDERED: Nitroglycerin 0.4 MG Tab.SL SL PRN (16:54)
[2016-09-03] MEDS ORDERED: Lidocaine 2% 100 MG/5 ML Syringe IVPUSH PRN (16:54)
[2016-09-03] MEDS ORDERED: Atropine 0.1 MG/ML 10 ML Syringe IVPUSH PRN (16:54)
[2016-09-03] MEDS: Warfarin 2 MG Tab PO SCH (18:02)
[2016-09-04] MEDS: Fluticasone/Salmeterol 250-50 MCG Inhalation Powder 14/Diskus INH SCH ×2 (08:58→20:37)
[2016-09-04] MEDS: Ciprofloxacin 500 MG Tab PO SCH ×2 (08:59→20:37)
[2016-09-04] MEDS: Metoprolol Succinate 50 MG Tab.ER PO SCH (08:59)
--- NOTE | 2016-09-04 14:06 | PN ---
09/04/2016 PATIENT NAME: DEBI BALDWIN HISTORY OF PRESENT ILLNESS: This is an 81-year-old female patient who had an episode of atrial fibrillation with rapid ventricular response. The patient was found to have a heart rate in the 150s with her atrial fibrillation and was admitted to the hospital in the cardiac intensive care unit. She was started on a Cardizem drip. She has been stable for the past few days. Her Cardizem drip was discontinued two days ago. She has been on oral medications and doing well. Today, she denies any chest pains or shortness of breath. She states she feels really good today. She actually asked me when she can go home. OBJECTIVE: VITAL SIGNS: Today, her weight is 168 pounds, temperature is 96.5, pulse is 102, her pulse on telemetry is anywhere from 80-110, blood pressure today is 134/67, respiratory rate is 20, and oxygen saturations are 97% on room air. GENERAL: This is an elderly white female, in no acute distress. LUNGS: Lung sounds are clear in upper lobes, diminished at bilateral bases. HEART: Heart tones, no murmurs identified, irregularly irregular consistent with atrial fibrillation. ABDOMEN: Soft, nontender, nondistended. Bowel sounds present x4. EXTREMITIES: No pedal edema noted on exam. LABORATORY DATA: The patient's lab work that was obtained today: Basic metabolic panel showed a sodium slightly elevated at 146, potassium 4.7, chloride 109, BUN 49, creatinine 1.72, GFR is 28, calcium 8.0, glucose 132. The patient did have an episode of shortness of breath yesterday. Troponins were obtained yesterday afternoon. Her CK-MB within normal range at 0.60. Troponin was also within normal range at 0.05. Repeat troponin 6 hours later was also negative at 0.04. IMPRESSION AND PLAN: 1. Chronic atrial fibrillation with recent episode of rapid ventricular response. Plan: The patient's pulse today on exam was at 102. Cardizem drip has been discontinued now for greater than 48 hours. She is on oral beta-marci of Toprol-XL 125 mg daily. We will continue with telemetry. She continues on Coumadin daily. She is receiving 4 mg Coumadin daily. Her INR that was obtained on Monday was 2.4. The patient's most recent echocardiogram showed an ejection fraction of 15%-20%. I am going to restart the patient's Lasix 20 mg orally daily. Her GFR has been stable. The patient did have some shortness of breath yesterday. Troponins were negative. Original troponin and CK were negative. Repeat troponin was also negative at 0.04. I did obtain a chest x-ray today. The impression reads per Radiology, unchanged opacification of the left lung base. If clinically warranted, this could be further evaluated with a contrast enhanced CT scan of the chest. The patient seems to be doing well. 2. Urinary tract infection. Plan: Continue with Cipro 500 mg twice a day orally. This can be discontinued tomorrow. 3. Left pleural effusion. Plan: Chest x-ray that was obtained today says opacification, seems to be stable, unchanged from previous. We will continue with incentive spirometer every 2 hours while awake. 4. History of hypertension, stable. The patient's blood pressure today is 134/67. We will continue with Toprol-XL 125 mg daily. Continue to monitor blood pressures. 5. History of hyperlipidemia. Plan: I am going to restart the patient's atorvastatin 20 mg daily. 6. History of chronic obstructive pulmonary disease. Plan: Continue with Advair Diskus twice daily. 7. History of chronic kidney disease, stage 4. The patient's BUN today is elevated at 49, creatinine at 1.72, and GFR is 28, that seem to be stable. OVERALL PLAN: The patient seems to be doing well. Chest x-ray is unchanged. Kidney function is stable. Heart rate has been controlled. Plan for discharge tomorrow to [facility]. /[id number]/MODL
[2016-09-04] MEDS: Warfarin 2 MG Tab PO SCH (18:22)
[2016-09-04] MEDS ORDERED: atorvaSTATin 10 MG Tab PO SCH (21:00)
[2016-09-05 07:06] VITALS: BP 124/76
[2016-09-05] MEDS: Fluticasone/Salmeterol 250-50 MCG Inhalation Powder 14/Diskus INH SCH (08:36)
[2016-09-05] MEDS: Ciprofloxacin 500 MG Tab PO SCH (08:37)
[2016-09-05] MEDS: Metoprolol Succinate 50 MG Tab.ER PO SCH (08:37)
[2016-09-05] MEDS: Furosemide 20 MG Tab PO SCH (08:41)
[2016-09-05] MEDS ORDERED: Warfarin 2 MG Tab PO SCH (18:00)
--- NOTE | 2016-09-06 09:02 | DISCH ---
ADMITTING DIAGNOSIS: Atrial fibrillation with rapid ventricular response. FINAL DIAGNOSES: 1. Chronic atrial fibrillation with rate controlled. 2. Recent urinary tract infection, resolved. 3. Left pleural effusion, stable. BRIEF HISTORY AND ESSENTIAL PHYSICAL FINDINGS: This is an 81-year-old female patient who had an episode of atrial fibrillation with rapid ventricular response. She was seen in the clinic and found to have a pulse rate of 155 on EKG. At that time, the patient was admitted to the hospital in the cardiac intensive care unit. The patient was started on a Cardizem drip. The Cardizem drip has been discontinued several days ago. She has been on oral medications and rate controlled at this point. She has been doing well. She denies any chest pain or any shortness of breath. SIGNIFICANT LABS XRAYS AND CONSULTATION FINDINGS: An echocardiogram that was obtained on 08/31/2016 showed ejection fraction at 15% to 20%. Most recent EKG that she had while in the hospital was obtained on 09/03/2016, showed atrial fibrillation with rapid ventricular response at 114 beats per minute, otherwise unremarkable. The patient's last chest x-ray that was obtained on 09/04/2016, the impression reads unchanged opacification of the left lung base. This is unchanged from prior study. It is not clear whether this is related to overlying dense soft tissue, elevated diaphragm, infiltrate, atelectasis, or effusion. The right lung is clear per Radiology. The patient's CBC that was obtained upon admission on 08/29/2016 white count was within normal range at 9.9, hemoglobin was 13.1, INR 1.7. Chemistry panel was unremarkable except for patient's BUN was elevated at 43, creatinine 1.76, GFR 28, otherwise unremarkable. Brain natriuretic peptide that was obtained on 08/30/2016 was very elevated at 1130. Lab work that was most recent to discharge was obtained on 09/03/2016, CBC showed a white count within normal range at 8.5, hemoglobin stable at 12.5, platelet count 177. The patient's last INR was obtained on day of discharge, 09/05/2016, which was 3.7. Chemistry panel that was obtained on 09/04/2016 showed sodium slightly elevated at 146, potassium 4.7, chloride 109, BUN 49, creatinine 1.72, GFR was 28, calcium 8.0. The patient did have troponin, CK-MB obtained on 09/03/2016, CK-MB within normal range at 0.60, troponin was 0.05. Repeat troponin obtained on the same day 6 hours later was also negative at 0.04. The patient had a urinalysis obtained on 08/31/2016 which showed moderate amount of bacteria. COURSE IN HOSPITAL WITH COMPLICATIONS IF ANY: The patient's heart rate was controlled throughout the hospital stay, blood pressure was stable. The patient had a urinary tract infection that was treated with Cipro. INRs have been fairly stable. CONDITION TREATMENT AND FINAL DISPOSITION ON DISCHARGE AND PROGNOSIS: Condition is stable. Final disposition will be the [facility]. IMPRESSION AND PLAN: 1. Chronic atrial fibrillation with recent episode of rapid ventricular response. Plan: The patient's pulse today is 108. We are going to send the patient back to [place] on Toprol-XL 150 mg daily. We will continue the patient on Coumadin. INR today on discharge was slightly elevated at 3.7, will decrease the dose of Coumadin to 3 mg daily. We will do daily INRs until stabilized. The patient's most recent echocardiogram showed ejection fraction of 15% to 20%. We will continue with Lasix 20 mg orally daily. Troponins that were obtained a few days ago were negative. The patient's chest x-ray has been stable with left lower lobe pleural effusion. 2. Urinary tract infection, resolved. The patient has completed a five day course of Cipro. 3. Left pleural effusion. Plan: The patient's chest x-rays have been unchanged. 4. History of hypertension, stable. Plan: We will continue the patient on Toprol-XL 150 mg daily. Blood pressure has been stable. 5. History of hyperlipidemia. Plan: Continue patient on atorvastatin 20 mg daily. 6. History of chronic obstructive pulmonary disease. Plan: Continue with Advair Diskus twice daily. 7. History of chronic kidney disease, stage 4. The patient's BUN yesterday was 49, creatinine 1.72, GFR 28. This has been stable throughout the hospital stay. OVERALL PLAN: The patient has been doing well. Chest x-ray is unchanged. Kidney function has been stable. Heart rate has been controlled on oral medications. We will discharge the patient to the [facility] today. /[id number]/MODL MTDD
== END 2016-09-05 12:43 | DRG 309 ==
LOC: KA.MS 14:50
PROVIDERS: ATTEND Family Medicine
DX: I48.91 Unspecified atrial fibrillation (principal); J90 Pleural effusion, not elsewhere classified; N39.0 Urinary tract infection, site not specified; I50.20 Unspecified systolic (congestive) heart failure; N18.4 Chronic kidney disease, stage 4 (severe); J44.9 Chronic obstructive pulmonary disease, unspecified; I12.9 Hypertensive chronic kidney disease with stage 1 through stage 4 chronic kidney disease, or unspecified chronic kidney disease; I25.5 Ischemic cardiomyopathy; E78.00 Pure hypercholesterolemia, unspecified; Z79.899 Other long term (current) drug therapy; Z66 Do not resuscitate
CPT/HCPCS: 36415; 36416; 71010; 71020; 80048; 80053; 81001; 82550; 82553; 83880; 84484; 85025; 85610; 85651; 87086; 87088; 87186; 93005; 93306; 94640; 97162-GP; 97530-GP; A9270-GY; J1650; J1940; J3490; J7050

== ENCOUNTER 2016-09-29 15:30 | Emergency (ER) | payer MEDICARE, OTHER, SELFPAY ==
--- NOTE | 2016-09-29 16:06 | EDM.PDOC ---
ED HPI GENERAL MEDICAL PROBLEM - General Chief Complaint: Respiratory Problem Stated Complaint: SOB WITH COUGHING UP BLOOD Time Seen by Provider: 09/29/16 15:44 Source of Information: Reports: Patient, Fdc Records History Limitations: Reports: No Limitations - History of Present Illness INITIAL COMMENTS - FREE TEXT/NARRATIVE: PER NURSING FACILITY, PT DEVELOPED SOB TODAY WITH INCREASE RATE AND RESP EFFORT. COUGHED UP BLOOD THIS AFTERNOON. SHE DENIES CP, ADDISON, N/V/D Duration: Hour(s): Location: Reports: Chest Severity: Mild Improves with: Reports: None Worsens with: Reports: Breathing Associated Symptoms: Reports: Cough, Shortness of Breath - Related Data Allergies Allergy/AdvReac Type Severity Reaction Status Date / Time No Known Drug Allergies Allergy none Verified 09/29/16 16:33 Home Meds: Home Meds Acetaminophen [Pain Relief] 325 mg PO Q6H PRN 05/31/14 [History] Fluticasone/Salmeterol [Advair 250-50 Diskus] 1 puff INH BID 05/31/14 [History] Furosemide [Furosemide] 20 mg PO DAILY 05/31/14 [History] atorvaSTATin [Lipitor] 20 mg PO BEDTIME 05/31/14 [History] Calcium Carbonate/Vitamin D3 [Calcium 500 + Vit D 400] 1 each PO DAILY 08/29/16 [History] Cranberry Extract [Cranberry] 250 mg PO DAILY 08/29/16 [History] Ferrous Sulfate 325 mg PO DAILY 08/29/16 [History] Multivitamins w-Iron/Ca/FA/Min [Thera M Plus] 1 tab PO DAILY 08/29/16 [History] Nitroglycerin [Nitrostat] 0.4 mg SL Q5M 08/29/16 [History] Metoprolol Succinate [Toprol XL] 150 mg PO DAILY #30 tab.er 09/05/16 [Rx] Ascorbic Acid [Vitamin C] 500 mg PO DAILY 09/29/16 [History] Docusate Sodium/Sennosides [Senna Plus] 1 tab PO BID 09/29/16 [History] Potassium Chloride [Klor-Con 10] 10 meq PO DAILY 09/29/16 [History] Spironolactone [Aldactone] 1 tab PO 1800 09/29/16 [History] Warfarin [Coumadin] 2.5 mg PO SUTUTHSA 09/29/16 [History] Warfarin [Coumadin] 5 mg PO MOWEFR 09/29/16 [History] traZODone HCl [Trazodone HCl] 12.5 mg PO BEDTIME 09/29/16 [History] Past Medical History HEENT History: Reports: Impaired Vision Cardiovascular History: Reports: Afib, High Cholesterol, Hypertension, [place], Other (See Below) Other Cardiovascular History: ischemic cardiomyopathy Respiratory History: Reports: COPD Gastrointestinal History: Reports: Hemorrhoids Genitourinary History: Reports: Urinary Incontinence, Other (See Below) Other Genitourinary History: CKD Stage 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: Musculoskeletal History: Reports: Arthritis Hematologic History: Reports: Other (See Below) Other Hematologic History: pt takes iron tablet daily - Past Surgical History Cardiovascular Surgical History: Reports: Carotid Stents, Other (See Below) GI Surgical History: Reports: Other (See Below) Social & Family History - Family History Family Medical History: Noncontributory - Tobacco Use Smoking Status *Q: Never Smoker Second Hand Smoke Exposure: No - Alcohol Use Days Per Week of Alcohol Use: 0 - Recreational Drug Use Recreational Drug Use: No ED ROS GENERAL - Review of Systems Review Of Systems: ROS reveals no pertinent complaints other than HPI. Constitutional: Reports: No Symptoms HEENT: Reports: No Symptoms Respiratory: Reports: Shortness of Breath, Cough, Hemoptysis Cardiovascular: Reports: No Symptoms Endocrine: Reports: No Symptoms GI/Abdominal: Reports: No Symptoms : Reports: No Symptoms Musculoskeletal: Reports: No Symptoms Skin: Reports: No Symptoms Neurological: Reports: No Symptoms Psychiatric: Reports: No Symptoms Hematologic/Lymphatic: Reports: No Symptoms Immunologic: Reports: No Symptoms ED EXAM, GENERAL - Physical Exam Exam: See Below Exam Limited By: No Limitations General Appearance: Alert, WD/WN, No Apparent Distress Eye Exam: Bilateral Eye: Normal Inspection Nose: Normal Inspection, No Blood Throat/Mouth: Normal Inspection, Normal Oropharynx, No Airway Compromise Head: Atraumatic, Normocephalic Neck: Normal Inspection Respiratory/Chest: No Respiratory Distress, Rales ([place]) Cardiovascular: Irregularly Irregular GI/Abdominal: Normal Bowel Sounds, Soft, Non-Tender Back Exam: Normal Inspection. No: CVA Tenderness (L), CVA Tenderness (R) Extremities: Pedal Edema (3+ BILAT) Neurological: Alert, Disoriented Psychiatric: Normal Affect, Normal Mood Skin Exam: Warm, Dry, Intact, Normal Color, No Rash Lymphatic: No Adenopathy EKG INTERPRETATION EKG Date: 09/29/16 Time: 16:50 Rhythm: a-fib [place]: RAD-right axis deviation Course - Orders/Labs/Meds Orders: Active Orders 24 hr Category Date Time Status EKG Documentation Completion [RC] ASDIRECTED Care 09/29/16 15:51 Ordered Chest 1V Frontal [CR] Stat Exams 09/29/16 15:49 Ordered B-TYPE NATRIURETIC PEPTIDE,BNP [CHEM] Stat Lab 09/29/16 15:51 Ordered CBC WITH AUTO DIFF [HEME] Stat Lab 09/29/16 15:49 Ordered COMPREHENSIVE METABOLIC PN,CMP [CHEM] Stat Lab 09/29/16 15:49 Ordered INR,PT,PROTHROMBIN TIME [COAG] Stat Lab 09/29/16 15:49 Ordered PTT,PARTIAL THROMBOPLSTIN TIME [COAG] Stat Lab 09/29/16 15:49 Ordered TROPONIN I [CHEM] Stat Lab 09/29/16 15:49 Ordered EKG 12 Lead [EK] Routine Ther 09/29/16 15:51 Ordered - Radiology Interpretation Free Text/Narrative:: CXR SHOWS CONGESTIVE FAILURE - Re-Assessments/Exams Free Text/Narrative Re-Assessment/Exam: 09/29/16 18:10 PT AFEBRILE, NONTOXIC APPEARING, VSS, SAT 95% ON 2 L NC. DISCUSSED CASE WITH DR PRINCE. WILL INCREASE LASIX AND ALDACTONE AND RETURN PT TO NURSING FACILITY. Departure - Departure Time of Disposition: 18:11 Disposition: DC/Tfer to Medicaid Nur Fac 64 Condition: fair Clinical Impression: Congestive heart failure Qualifiers: Congestive heart failure type: unspecified congestive heart failure type Congestive heart failure chronicity: acute on chronic Qualified Code(s): I50.9 - Heart failure, unspecified Atrial fibrillation Qualifiers: Atrial fibrillation type: chronic Qualified Code(s): I48.2 - Chronic atrial fibrillation - Discharge Information Instructions: Heart Failure, Atrial Fibrillation Additional Instructions: REVIEW CHANGES TO MEDICATION AND DR PRINCE WILL SEE PT TOMORROW - My Orders Last 24 Hours: My Active Orders 09/29/16 15:49 Chest 1V Frontal [CR] Stat CBC WITH AUTO DIFF [HEME] Stat COMPREHENSIVE METABOLIC PN,CMP [CHEM] Stat INR,PT,PROTHROMBIN TIME [COAG] Stat PTT,PARTIAL THROMBOPLSTIN TIME [COAG] Stat TROPONIN I [CHEM] Stat 09/29/16 15:51 EKG Documentation Completion [RC] ASDIRECTED B-TYPE NATRIURETIC PEPTIDE,BNP [CHEM] Stat EKG 12 Lead [EK] Routine - Assessment/Plan Last 24 Hours: My Active Orders 09/29/16 15:49 Chest 1V Frontal [CR] Stat CBC WITH AUTO DIFF [HEME] Stat COMPREHENSIVE METABOLIC PN,CMP [CHEM] Stat INR,PT,PROTHROMBIN TIME [COAG] Stat PTT,PARTIAL THROMBOPLSTIN TIME [COAG] Stat TROPONIN I [CHEM] Stat 09/29/16 15:51 EKG Documentation Completion [RC] ASDIRECTED B-TYPE NATRIURETIC PEPTIDE,BNP [CHEM] Stat EKG 12 Lead [EK] Routine Assessment:: CHF Plan: RETURN TO NURSING FACILITY PER DR PRINCE
[2016-09-29 16:42] LABS: CHLORIDE,CL 107 mmol/L (98-115)
[2016-09-29 16:50] LABS: SODIUM,NA 146 mmol/L (136-145)
[2016-09-29] MEDS ORDERED: Furosemide 40 MG/4 ML VIAL ONE (18:08)
[2016-09-29] MEDS ORDERED: Furosemide 40 MG/4 ML VIAL IVPUSH ONE (18:09)
[2016-09-29 18:23] VITALS: BP 130/78
== END 2016-09-29 18:30 ==
LOC: KA.ED 15:30
DX: I13.0 Hypertensive heart and chronic kidney disease with heart failure and stage 1 through stage 4 chronic kidney disease, or unspecified chronic kidney disease (principal); N18.3 Chronic kidney disease, stage 3 (moderate); I50.9 Heart failure, unspecified; I48.2 Chronic atrial fibrillation; I25.2 Old myocardial infarction; J44.9 Chronic obstructive pulmonary disease, unspecified; E78.00 Pure hypercholesterolemia, unspecified; M19.90 Unspecified osteoarthritis, unspecified site; Z79.899 Other long term (current) drug therapy; Z79.01 Long term (current) use of anticoagulants
CPT/HCPCS: 36415; 71010; 80053; 83880; 84484; 85025; 85610; 85730; 93005; 96374; 99285; J1940

== ENCOUNTER 2016-12-18 15:00 | Inpatient (IN) | payer MEDICARE, MEDICAID ==
[2016-12-18] MEDS ORDERED: Sodium Chloride 0.9% 5 ML Syringe FLUSH PRN (15:29)
--- NOTE | 2016-12-18 15:36 | EDM.PDOC ---
ED HPI GENERAL MEDICAL PROBLEM - General Chief Complaint: Respiratory Problem Stated Complaint: SHORTNES OF BREATH Time Seen by Provider: 12/18/16 15:25 Source of Information: Reports: Patient, Residential Records History Limitations: Reports: No Limitations - History of Present Illness INITIAL COMMENTS - FREE TEXT/NARRATIVE: 81 YO WF presents to ER complaining of shortness of breath which started today. Pt was sent from detention with complaints of shortness of breath and left arm/under arm pain. Pt with history of chronic atrial fibrillation and ischemic cardiomyopathy with history of CHF. Onset: Unknown/Unsure Duration: Day(s): (1) Location: Reports: Chest Severity: Mild Improves with: Reports: None Worsens with: Reports: None Associated Symptoms: Reports: No Other Symptoms, Chest Pain, Shortness of Breath Left Pain Score (Numeric/FACES): 4 - Related Data Allergies Allergy/AdvReac Type Severity Reaction Status Date / Time No Known Drug Allergies Allergy none Verified 12/18/16 15:49 Home Meds: Home Meds Acetaminophen [Pain Relief] 650 mg PO Q6H PRN 05/31/14 [History] Fluticasone/Salmeterol [Advair 250-50 Diskus] 1 puff INH BID 05/31/14 [History] Furosemide [Furosemide] 20 mg PO DAILY 05/31/14 [History] atorvaSTATin [Lipitor] 20 mg PO BEDTIME 05/31/14 [History] Calcium Carbonate/Vitamin D3 [Calcium 500 + Vit D 400] 1 each PO DAILY 08/29/16 [History] Cranberry Extract [Cranberry] 450 mg PO DAILY 08/29/16 [History] Ferrous Sulfate 325 mg PO DAILY 08/29/16 [History] Multivitamins w-Iron/Ca/FA/Min [Thera M Plus] 1 tab PO DAILY 08/29/16 [History] Nitroglycerin [Nitrostat] 0.4 mg SL Q5M 08/29/16 [History] Ascorbic Acid [Vitamin C] 500 mg PO DAILY 09/29/16 [History] Docusate Sodium/Sennosides [Senna Plus] 1 tab PO BID 09/29/16 [History] Potassium Chloride [Klor-Con 10] 10 meq PO DAILY 09/29/16 [History] Warfarin [Coumadin] 2.5 mg PO MOWEFR 09/29/16 [History] Warfarin [Coumadin] 3.75 mg PO SUTUTHSA 09/29/16 [History] traZODone HCl [Trazodone HCl] 12.5 mg PO BEDTIME 09/29/16 [History] Acetaminophen [Tylenol Arthritis] 650 mg PO BEDTIME 12/18/16 [History] Metoprolol Tartrate [Lopressor] 100 mg PO BID 12/18/16 [History] Polyethylene Glycol 3350 [MiraLAX] 17 gm PO DAILY 12/18/16 [History] Past Medical History HEENT History: Reports: Impaired Vision Cardiovascular History: Reports: Afib, High Cholesterol, Hypertension, [place], Other (See Below) Other Cardiovascular History: ischemic cardiomyopathy Respiratory History: Reports: COPD Gastrointestinal History: Reports: Hemorrhoids Genitourinary History: Reports: Urinary Incontinence, Other (See Below) Other Genitourinary History: 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 Stage 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: Musculoskeletal History: Reports: Arthritis Hematologic History: Reports: Other (See Below) Other Hematologic History: pt takes iron tablet daily - Past Surgical History Cardiovascular Surgical History: Reports: Carotid Stents, Other (See Below) GI Surgical History: Reports: Other (See Below) Social & Family History - Family History Family Medical History: Noncontributory - Tobacco Use Smoking Status *Q: Never Smoker Second Hand Smoke Exposure: No - Alcohol Use Days Per Week of Alcohol Use: 0 - Recreational Drug Use Recreational Drug Use: No ED ROS GENERAL - Review of Systems Review Of Systems: See Below Constitutional: Reports: No Symptoms HEENT: Reports: No Symptoms Respiratory: Reports: Shortness of Breath Cardiovascular: Reports: Chest Pain, Edema Endocrine: Reports: No Symptoms GI/Abdominal: Reports: No Symptoms : Reports: No Symptoms Musculoskeletal: Reports: No Symptoms Skin: Reports: No Symptoms Neurological: Reports: No Symptoms Psychiatric: Reports: No Symptoms Hematologic/Lymphatic: Reports: No Symptoms Immunologic: Reports: No Symptoms ED EXAM, GENERAL - Physical Exam Exam: See Below Exam Limited By: No Limitations General Appearance: Alert, WD/WN, No Apparent Distress Throat/Mouth: Normal Inspection, Normal Lips, Normal Teeth, Normal Gums, Normal Oropharynx, Normal Voice, No Airway Compromise Head: Atraumatic, Normocephalic Neck: Normal Inspection, Supple, Non-Tender, Full Range of Motion Respiratory/Chest: No Respiratory Distress, No Accessory Muscle Use, Chest Non- Tender, Decreased Breath Sounds Cardiovascular: Normal Peripheral Pulses, No Gallop, No JVD, No Murmur, No Rub, JVD, Tachycardia, Irregularly Irregular GI/Abdominal: Normal Bowel Sounds, Soft, Non-Tender, No Organomegaly, No Distention, No Abnormal Bruit, No Mass Back Exam: Normal Inspection, Full Range of Motion, NT Extremities: Normal Range of Motion, Non-Tender, Normal Capillary Refill, Pedal Edema. No: No Pedal Edema Neurological: Alert, Oriented, CN II-XII Intact, Normal Cognition, Normal Gait, Normal Reflexes, No Motor/Sensory Deficits Psychiatric: Normal Affect, Normal Mood Skin Exam: Warm, Dry, Intact, Normal Color, No Rash Lymphatic: No Adenopathy EKG INTERPRETATION EKG Date: 12/18/16 Time: 15:38 Rhythm: A-Fib Rate (Beats/Min): 114 [place]: RAD-Right [place] Deviation P-Wave: Absent QRS: Normal ST-T: Normal QT: Normal Comparison: NA - No Prior EKG Course - Vital Signs Last Recorded V/S: Last Vital Signs Temp 35.7 C 12/18/16 15:42 Pulse 122 H 12/18/16 16:04 Resp 28 H 12/18/16 15:42 BP 145/97 H 12/18/16 16:04 Pulse Ox 98 12/18/16 15:42 - Orders/Labs/Meds Orders: Active Orders 24 hr Category Date Time Status EKG Documentation Completion [RC] ASDIRECTED Care 12/18/16 15:29 Active Peripheral IV Care [RC] . DIRECTED Care 12/18/16 15:29 Active Chest 1V Frontal [CR] Stat Exams 12/18/16 15:29 Taken Sodium Chloride 0.9% [Syrex Flush] Med 12/18/16 15:29 Active 5 ml FLUSH Q8HR PRN Peripheral IV Insertion Adult [OM.PC] Routine Oth 12/18/16 15:29 Ordered Medication Orders Sodium Chloride (Syrex Flush) 5 ml FLUSH Q8HR PRN PRN Reason: Keep Vein Open Labs: Laboratory Tests 12/18/16 12/18/16 12/18/16 Range/Units 16:10 16:10 16:10 WBC 7.9 (5.0-10.0) 10^3/uL RBC 4.62 (3.80-5.50) 10^6/uL Hgb 13.0 (12.0-16.0) g/dL Hct 39.6 (37.0-47.0) % MCV 85.8 (82.0-92.0) fL MCH 28.3 (27.0-31.0) pg MCHC 32.9 (32.0-36.0) g/dL RDW 17.4 H (11.5-14.5) % Plt Count 209 (150-300) 10^3/uL MPV 9.4 (7.4-10.4) fL Neut % (Auto) 71.2 H (50.0-70.0) % Lymph % (Auto) 12.3 L (20.0-40.0) % [place] % (Auto) 12.2 H (2.0-8.0) % Eos % (Auto) 3.3 H (1.0-3.0) % Baso % (Auto) 1.0 (0.0-1.0) % Neut # (Auto) 5.5 (2.5-7.0) 10^3/uL Lymph # (Auto) 1.0 (1.0-4.0) 10^3/uL [place] # (Auto) 1.0 H (0.1-0.8) 10^3/uL Eos # (Auto) 0.3 (0.1-0.3) 10^3/uL Baso # (Auto) 0.1 (0.0-0.1) 10^3/uL PT 18.3 H (8.9-11.4) SEC INR 1.8 H (0.9-1.1) APTT 29.2 (20.8-31.2) SEC Sodium 145 (136-145) mmol/L Potassium 4.3 (3.3-5.3) mmol/L Chloride 110 (98-115) mmol/L Carbon Dioxide 26.6 (21.0-32.0) mmol/L BUN 44 H (6-25) mg/dL Creatinine 1.44 H (0.51-1.17) mg/dL Est Cr Clr Drug Dosing 23.41 mL/min Estimated GFR (MDRD) 35 mL/min Glucose 125 H (70-110) mg/dL Calcium 8.8 (8.7-10.3) mg/dL Creatine Kinase 28 (26-276) U/L CK-MB (CK-2) 0.70 (0.00-4.30) ng/mL Troponin I 0.07 (0.00-0.070) ng/mL B-Natriuretic Peptide 2140 H (0-100) pg/mL Meds: Medications Generic Name Dose Route Start Last Admin Trade Name Freq PRN Reason Stop Dose Admin Sodium Chloride 5 ml 12/18/16 15:29 Syrex Flush FLUSH Q8HR PRN Keep Vein Open Discontinued Medications Generic Name Dose Route Start Last Admin Trade Name Freq PRN Reason Stop Dose Admin Diltiazem HCl 10 mg 12/18/16 15:38 12/18/16 16:04 Diltiazem IVPUSH 12/18/16 15:39 10 mg ONETIME ONE Administration Departure - Departure Time of Disposition: 17:53 Disposition: Admitted As Inpatient 64 Condition: Serious Clinical Impression: Atrial fibrillation with rapid ventricular response, Renal insufficiency CHF (congestive heart failure) Qualifiers: Congestive heart failure chronicity: acute - Discharge Information - My Orders Last 24 Hours: My Active Orders 12/18/16 15:29 EKG Documentation Completion [RC] ASDIRECTED Peripheral IV Care [RC] . DIRECTED Chest 1V Frontal [CR] Stat Sodium Chloride 0.9% [Syrex Flush] 5 ml FLUSH Q8HR PRN Peripheral IV Insertion Adult [OM.PC] Routine - Assessment/Plan Last 24 Hours: My Active Orders 12/18/16 15:29 EKG Documentation Completion [RC] ASDIRECTED Peripheral IV Care [RC] . DIRECTED Chest 1V Frontal [CR] Stat Sodium Chloride 0.9% [Syrex Flush] 5 ml FLUSH Q8HR PRN Peripheral IV Insertion Adult [OM.PC] Routine Assessment:: 1. atrial Fibrillation with RVR 2. CHF exacerbation 3. renal insufficiency Plan: 1. admit for CHF exacerbation 2. lasix 40mg IV now 3. ej hazel to see patient for admission orders
[2016-12-18] MEDS ORDERED: Diltiazem 25 MG/5 ML SDV IVPUSH ONE (15:38)
[2016-12-18] MEDS ORDERED: Furosemide 40 MG/4 ML VIAL IVPUSH ONE (17:58)
--- NOTE | 2016-12-18 18:46 | PCM.HP ---
H&P History of Present Illness - General Date of Service: 12/18/16 Source of Information: Patient, Old Records, Provider, RN History Limitations: Reports: No Limitations - History of Present Illness Initial Comments - Free Text/Narative: This 81-year-old female was [facility] due to some increasing shortness of breath along with edema. Patient does have atrial fibrillation chronic and is on a beta marci however she came into the ED with RVR. She has chronic atrial fibrillation and this has been controlled on Metoprolol and is on Coumadin. INR slightly subtherapeutic. Patient also has a history of ischemic cardiac myopathy and she recently about one month ago she did have her Lasix reduced to 40 mg a.m. 20 and the p.m. due to increasing creatinine levels. Patient has COPD and is on the Advair, history of hypercholesterolemia and is on statin therapy. She does also have a history of ERVIN and currently on iron supplementation. She denies chest pain, troponin and EKG negative. BNP elevated Left Pain Score (Numeric/FACES): 4 - Related Data Allergies/Adverse Reactions: Allergies Allergy/AdvReac Type Severity Reaction Status Date / Time No Known Drug Allergies Allergy none Verified 12/18/16 15:49 Home Medications: Home Meds Fluticasone/Salmeterol [Advair 250-50 Diskus] 1 puff INH BID 05/31/14 [History] Furosemide [Furosemide] 20 mg PO BID 05/31/14 [History] atorvaSTATin [Lipitor] 20 mg PO BEDTIME 05/31/14 [History] Cranberry Extract [Cranberry] 450 mg PO DAILY 08/29/16 [History] Ferrous Sulfate 325 mg PO DAILY 08/29/16 [History] Multivitamins w-Iron/Ca/FA/Min [Thera M Plus] 1 tab PO DAILY 08/29/16 [History] Nitroglycerin [Nitrostat] 0.4 mg SL Q5M PRN 08/29/16 [History] Ascorbic Acid [Vitamin C] 500 mg PO DAILY 09/29/16 [History] Docusate Sodium/Sennosides [Senna Plus] 1 tab PO BID 09/29/16 [History] Potassium Chloride [Klor-Con 10] 10 meq PO DAILY 09/29/16 [History] Warfarin [Coumadin] 2.5 mg PO MOWEFR 09/29/16 [History] Warfarin [Coumadin] 3.75 mg PO SUTUTHSA 09/29/16 [History] traZODone HCl [Trazodone HCl] 12.5 mg PO BEDTIME 09/29/16 [History] Acetaminophen [Tylenol Arthritis] 650 mg PO BEDTIME 12/18/16 [History] Metoprolol Tartrate [Lopressor] 100 mg PO BID 12/18/16 [History] Polyethylene Glycol 3350 [MiraLAX] 17 gm PO DAILY 12/18/16 [History] Acetaminophen [Acetaminophen ER] 650 mg PO Q6H PRN 12/19/16 [History] Calcium Carbonate/Vitamin D3 [Calcium 600 + Vit D 400 Softgl] 1 cap PO DAILY [History] Past Medical History HEENT History: Reports: Impaired Vision Cardiovascular History: Reports: Afib, High Cholesterol, Hypertension, DC, Other (See Below) Other Cardiovascular History: ischemic cardiomyopathy Respiratory History: Reports: COPD Gastrointestinal History: Reports: Hemorrhoids Genitourinary History: Reports: Urinary Incontinence, Other (See Below) Other Genitourinary History: CKD Stage 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: Musculoskeletal History: Reports: Arthritis Hematologic History: Reports: Other (See Below) Other Hematologic History: pt takes iron tablet daily - Past Surgical History Cardiovascular Surgical History: Reports: Carotid Stents, Other (See Below) GI Surgical History: Reports: Other (See Below) Social & Family History - Tobacco Use Smoking Status *Q: Never Smoker Second Hand Smoke Exposure: No - Caffeine Use Caffeine Use: Reports: Coffee - Alcohol Use Days Per Week of Alcohol Use: 0 - Recreational Drug Use Recreational Drug Use: No H&P Review of Systems - Review of Systems: Review Of Systems: See Below General: Denies: Fever, Malaise, Weakness, Decreased Appetite HEENT: Denies: Dysphasia, Headaches, Hearing Changes, Rhinitis, Sore Throat Pulmonary: Reports: Shortness of Breath. Denies: Wheezing, Pleuritic Chest Pain , Cough, Hemoptysis Cardiovascular: Reports: Edema. Denies: Chest Pain, Palpitations, Orthopnea, Lightheadedness, Syncope Gastrointestinal: Reports: No Symptoms Genitourinary: Reports: Incontinence (stress incontinence. ) Musculoskeletal: Reports: No Symptoms Skin: Reports: Pallor Psychiatric: Denies: Confusion, Anxiety Neurological: Reports: Difficulty Walking. Denies: Confusion, Dizziness, Headache, Seizure, Trouble Speaking Hematologic/Lymphatic: Reports: No Symptoms Immunologic: Reports: No Symptoms Exam - Exam Exam: See Below - Vital Signs Vital Signs: Last Vital Signs Temp 96.3 F 12/18/16 15:42 Pulse 122 H 12/18/16 16:04 Resp 28 H 12/18/16 15:42 BP 145/97 H 12/18/16 16:04 Pulse Ox 98 12/18/16 15:42 Weight: 135 lb - Exam Quality Assessment: Supplemental Oxygen General: Alert, Oriented, Cooperative. No: Mild Distress HEENT: Mucosa Moist & [place] Neck: JVD Lungs: Crackles. No: Normal Respiratory Effort, Wheezing Cardiovascular: Irregular Rhythm, Tachycardia GI/Abdominal Exam: Normal Bowel Sounds, Soft, No Distention, No Mass (Female) Exam: Deferred Rectal (Female) Exam: Deferred Extremities: Normal Capillary Refill, Pedal Edema Peripheral Pulses: 2+: Carotid (L), Carotid (R) Skin: Warm, Dry, Intact Neurological: Cranial Nerves Intact, Reflexes Equal Bilateral, Normal Speech Neuro Extensive - Mental Status: Alert, Oriented x3, Normal Mood/Affect, Normal Cognition Psychiatric: Alert, Normal Affect, Normal Mood - Patient Data Result Diagrams: 12/19/16 07:15 12/20/16 07:09 *Q Meaningful Use (ADM) - VTE *Q VTE Criteria *Q: - Stroke *Q Stroke Criteria *Q: - AMI *Q AMI Criteria *Q: Problem List Initiated/Reviewed/Updated: Yes Orders Last 24hrs: Active Orders 24 hr Category Date Time Status B-TYPE NATRIURETIC PEPTIDE,BNP [CHEM] AM Lab 12/19/16 05:11 Ordered Medication Orders Sodium Chloride (Syrex Flush) 5 ml FLUSH Q8HR PRN PRN Reason: Keep Vein Open Sodium Chloride (Syrex Flush) 5 ml FLUSH Q8HR PRN PRN Reason: Keep Vein Open Assessment/Plan Comment:: This 81-year-old female was [facility] ED [facility] due to some increasing shortness of breath along with edema. Patient does have atrial fibrillation chronic and is on a beta marci however she came into the ED with RVR. She has chronic atrial fibrillation and this has been controlled on Metoprolol and is on Coumadin. INR slightly subtherapeutic. Patient also has a history of ischemic cardiac myopathy and she recently about one month ago she did have her Lasix reduced to 40 mg a.m. 20 and the p.m. due to increasing creatinine levels. Patient has COPD and is on the Advair, history of hypercholesterolemia and is on statin therapy. She does also have a history of ERVIN and currently on iron supplementation. She denies chest pain, troponin and EKG negative. BNP elevated Pertinent diagnostics is an initial treatment Chest x-ray, bilateral pleural effusions, cardiomegaly with pulmonary vascular congestion EKG. A. fib, RVR heart rate 114 Troponin, normal, will trend Lasix 40 mg IVP on admission Diltiazem and IV push 1 in ED CODE STATUS, full code--needs to be addressed IMPRESSION/PLAN Heart failure with conconmitent Pulmonary congestion; clinically evident, fluid overload, BNP, 2140, 40 mg IV Lasix 1 tonight, potassium supplementation will be slightly increased, telemetry. [id number] high 5; on Coumadin, No echocardiogram on file. Will place in CCU status Atrial fibrillation, chronic, needs better control, continue with beta marci, currently on 100 mg by mouth twice a day. May have to give diltiazem tonight if RVR greater than 90. We'll consider digoxin as needed telemetry tonight, INR slightly subtherapeutic, on Coumadin. Ischemic cardiomyopathy--no active chest pain, concerning if heart rate above 90. On Lasix Chronic obstructive pulmonary disease, seems stable on Advair, will monitor for the need for any CHRIS Chronic kidney disease, stage IV, creatinine 1 month ago was 1.85, now 1.44 Other chronic problems Insomnia, currently on trazodone, Iron deficiency anemia, on replacement therapy of iron Overall plan; Patient is hemodynamically stable tonight, we'll see how she responds to loop diuretics tonight, CCU status tonight, will attempt to get heart rate below 90 as she may not tolerate anything above this level due to her ischemic cardiomyopathy, Lasix, monitor intake and output, daily weights, low sodium diet, assess troponin in a.m., spirometer
[2016-12-18] MEDS ORDERED: Acetaminophen 325 MG Tab PO PRN (18:49)
[2016-12-18] MEDS ORDERED: Nitroglycerin 0.4 MG Tab.SL SL PRN (19:00)
[2016-12-18] MEDS: Potassium Chloride 10 MEQ Tab.ER PO SCH (19:30)
[2016-12-18] MEDS: Fluticasone/Salmeterol 250-50 MCG Inhalation Powder 14/Diskus INH SCH (20:53)
[2016-12-18] MEDS: Metoprolol Tartrate 50 MG Tab PO SCH (20:54)
[2016-12-18] MEDS: traZODone 50 MG Tab PO SCH (20:55)
[2016-12-18] MEDS: Acetaminophen 650 MG Tab.ER PO SCH (20:57)
[2016-12-19] MEDS: Polyethylene Glycol 3350 Powder 17 GM Packet PO SCH (08:06)
[2016-12-19] MEDS: Metoprolol Tartrate 50 MG Tab PO SCH ×2 (08:08→20:46)
[2016-12-19] MEDS: Potassium Chloride 10 MEQ Tab.ER PO SCH (08:09)
[2016-12-19] MEDS: Ascorbic Acid 500 MG Tab PO SCH (08:10)
[2016-12-19] MEDS: Sodium Chloride 0.9% 5 ML Syringe FLUSH PRN (08:14)
[2016-12-19] MEDS ORDERED: Lidocaine 2% 100 MG/5 ML Syringe IVPUSH PRN (08:26)
[2016-12-19] MEDS ORDERED: Atropine 0.1 MG/ML 10 ML Syringe IVPUSH PRN (08:26)
[2016-12-19] MEDS ORDERED: EPINEPHrine 1:10,000 1 MG/10 ML Syringe IVPUSH PRN (08:26)
[2016-12-19] MEDS: Fluticasone/Salmeterol 250-50 MCG Inhalation Powder 14/Diskus INH SCH ×2 (08:41→20:45)
[2016-12-19] MEDS ORDERED: Furosemide 40 MG/4 ML VIAL IVPUSH SCH (10:30)
[2016-12-19] MEDS ORDERED: Furosemide 40 MG/4 ML VIAL IVPUSH ONE ×2 (10:45→15:00)
--- NOTE | 2016-12-19 10:48 | PCM.PN ---
- General Info Date of Service: 12/19/16 Functional Status: Reports: Pain Controlled, Tolerating Diet. Denies: Ambulating, Incentive Spirometry - Review of Systems General: Denies: Fever, Weakness, Appetite Pulmonary: Reports: Shortness of Breath (Slightly improved shortness of breath) . Denies: Cough, Wheezing Cardiovascular: Reports: Dyspnea on Exertion, Orthopnea, Edema. Denies: Chest Pain Gastrointestinal: Denies: Abdominal Pain Genitourinary: Reports: Incontinence (Stress incontinence) Musculoskeletal: Reports: No Symptoms Skin: Reports: Pallor Neurological: Reports: Confusion (Confusion this morning). Denies: Dizziness, Headache, Numbness Psychiatric: Reports: Confusion (Lucid on rounds however nurses reported slight confusion toward mid-morning) - Patient Data Vitals - Most Recent: Last Vital Signs Temp 97.9 F 12/19/16 07:00 Pulse 116 H 12/19/16 08:41 Resp 20 12/19/16 07:00 BP 140/81 12/19/16 08:08 Pulse Ox 98 12/19/16 08:41 Weight - Most Recent: 135 lb I&O - Last 24 Hours: Intake & Output 12/18/16 12/19/16 12/19/16 22:59 06:59 14:59 Intake Total 100 100 Balance 100 100 Lab Results Last 24 Hours: Laboratory Results - last 24 hr 12/19/16 12/19/16 Range/Units 07:15 07:15 WBC 8.9 (5.0-10.0) 10^3/uL RBC 4.63 (3.80-5.50) 10^6/uL Hgb 13.2 (12.0-16.0) g/dL Hct 39.9 (37.0-47.0) % MCV 86.0 (82.0-92.0) fL MCH 28.4 (27.0-31.0) pg MCHC 33.0 (32.0-36.0) g/dL RDW 17.8 H (11.5-14.5) % Plt Count 213 (150-300) 10^3/uL MPV 9.7 (7.4-10.4) fL Neut % (Auto) 76.3 H (50.0-70.0) % Lymph % (Auto) 10.6 L (20.0-40.0) % [place] % (Auto) 9.4 H (2.0-8.0) % Eos % (Auto) 2.9 (1.0-3.0) % Baso % (Auto) 0.8 (0.0-1.0) % Neut # (Auto) 6.8 (2.5-7.0) 10^3/uL Lymph # (Auto) 0.9 L (1.0-4.0) 10^3/uL [place] # (Auto) 0.8 (0.1-0.8) 10^3/uL Eos # (Auto) 0.3 (0.1-0.3) 10^3/uL Baso # (Auto) 0.1 (0.0-0.1) 10^3/uL Sodium 144 (136-145) mmol/L Potassium 4.2 (3.3-5.3) mmol/L Chloride 109 (98-115) mmol/L Carbon Dioxide 25.3 (21.0-32.0) mmol/L BUN 42 H (6-25) mg/dL Creatinine 1.41 H (0.51-1.17) mg/dL Est Cr Clr Drug Dosing 23.91 mL/min Estimated GFR (MDRD) 36 mL/min Glucose 122 H (70-110) mg/dL Calcium 8.9 (8.7-10.3) mg/dL B-Natriuretic Peptide 1780 H (0-100) pg/mL Med Orders - Current: Current Medications Acetaminophen (Tylenol) 650 mg PO Q6H PRN PRN Reason: Pain Last Admin: 12/19/16 08:10 Dose: 650 mg Acetaminophen (Tylenol Arthritis Pain) 650 mg PO BEDTIME [facility] Last Admin: 12/18/16 20:57 Dose: 650 mg Ascorbic Acid (Vitamin C) 500 mg PO DAILY [facility] Last Admin: 12/19/16 08:10 Dose: 500 mg Atropine Sulfate (Atropine 0.1 Mg/Ml) 0 mg IVPUSH ASDIRECTED PRN PRN Reason: Heart Epinephrine HCl (Epinephrine 1:10,000) 1 mg IVPUSH ASDIRECTED PRN PRN Reason: Heart Lidocaine HCl (Xylocaine 2%) 0 mg IVPUSH ASDIRECTED PRN PRN Reason: Heart Metoprolol Tartrate (Lopressor) 100 mg PO BID [facility] Last Admin: 12/19/16 08:08 Dose: 100 mg Nitroglycerin (Nitrostat) 0.4 mg SL Q5M PRN PRN Reason: Chest Pain Polyethylene Glycol (Miralax) 17 gm PO DAILY [facility] Last Admin: 12/19/16 08:06 Dose: 17 gm Potassium Chloride (Klor-Con 10) 10 meq PO DAILY [facility] Last Admin: 12/19/16 08:09 Dose: 10 meq Fluticasone/Salmeterol (Advair Diskus 250-50) 1 puff INH BID [facility] Last Admin: 12/19/16 08:41 Dose: 1 puff Senna/Docusate Sodium (Senna Plus) 1 tab PO BID [facility] Last Admin: 12/19/16 08:10 Dose: 1 tab Sodium Chloride (Syrex Flush) 5 ml FLUSH Q8HR PRN PRN Reason: Keep Vein Open Last Admin: 12/19/16 08:14 Dose: 5 ml Trazodone HCl (Trazodone) 12.5 mg PO BEDTIME [facility] Last Admin: 12/18/16 20:55 Dose: 12.5 mg Warfarin Sodium (Coumadin) 2.5 mg PO MoWeFr@1800 [facility] Warfarin Sodium (Coumadin) 3.75 mg PO SuTuThSa@1800 [facility] Discontinued Medications Diltiazem HCl (Diltiazem) 10 mg IVPUSH ONETIME ONE Stop: 12/18/16 15:39 Last Admin: 12/18/16 16:04 Dose: 10 mg Furosemide (Lasix) 40 mg IVPUSH NOW ONE Stop: 12/18/16 17:59 Last Admin: 12/18/16 19:32 Dose: 40 mg Sodium Chloride (Syrex Flush) 5 ml FLUSH Q8HR PRN PRN Reason: Keep Vein Open - Exam Quality Assessment: Supplemental Oxygen General: Alert, Oriented (Nurses reported slight confusion midmorning, pulled out IV, however lucid and calm on rounds), No Acute Distress Lungs: Crackles (Crackles lower bases) Cardiovascular: Irregular Rhythm, Tachycardia GI/Abdominal Exam: Normal Bowel Sounds, Soft, Non-Tender, No Distention (Female) Exam: Deferred Skin: Warm, Dry, Intact Psy/Mental Status: Alert, Normal Affect - Problem List Review Problem List Initiated/Reviewed/Updated: Yes - My Orders Last 24 Hours: My Active Orders 12/18/16 18:49 Acetaminophen [Tylenol] 650 mg PO Q6H PRN 12/18/16 19:00 Nitroglycerin [Nitrostat] 0.4 mg SL Q5M PRN Potassium Chloride [Klor-Con 10] 10 meq PO DAILY 12/18/16 21:00 Acetaminophen [Tylenol Arthritis Pain] 650 mg PO BEDTIME Docusate Sodium/Sennosides [Senna Plus] 1 tab PO BID Fluticasone/Salmeterol [Advair Diskus 250-50] 1 puff INH BID Metoprolol Tartrate [Lopressor] 100 mg PO BID traZODone 12.5 mg PO BEDTIME 12/19/16 07:10 TROPONIN I [CHEM] Routine 12/19/16 08:26 Atropine [Atropine 0.1 MG/ML] 0 mg IVPUSH ASDIRECTED PRN EPINEPHrine [EPINEPHrine 1:10,000] 1 mg IVPUSH ASDIRECTED PRN Lidocaine 2% [Xylocaine 2%] 0 mg IVPUSH ASDIRECTED PRN 12/19/16 09:00 Ascorbic Acid [Vitamin C] 500 mg PO DAILY Polyethylene Glycol 3350 [MiraLAX] 17 gm PO DAILY 12/19/16 10:13 Incentive Spirometry [RT Incentive Spirometry] [RC] ASDIRECTED 12/19/16 18:00 Warfarin [Coumadin] 2.5 mg PO MoWeFr@1800 12/20/16 18:00 Warfarin [Coumadin] 3.75 mg PO SuTuThSa@1800 - Plan Plan:: This 81-year-old female [facility] some increasing shortness of breath along with edema. Patient does have atrial fibrillation chronic and is on a beta marci however she came into the ED with RVR. She has chronic atrial fibrillation and this has been controlled on Metoprolol and is on Coumadin. INR slightly subtherapeutic. Patient also has a history of ischemic cardiac myopathy and she recently about one month ago she did have her Lasix reduced to 40 mg a.m. 20 and the p.m. due to increasing creatinine levels. Patient has COPD and is on the Advair, history of hypercholesterolemia and is on statin therapy. She does also have a history of ERVIN and currently on iron supplementation. She denies chest pain, troponin and EKG negative. BNP elevated Pertinent diagnostics/initial treatment Chest x-ray, bilateral pleural effusions, cardiomegaly with pulmonary vascular congestion EKG. A. fib, RVR heart rate 114 Troponin, normal, will trend Lasix 40 mg IVP on admission Diltiazem and IV push 1 in ED CODE STATUS, full code--needs to be addressed IMPRESSION/PLAN Heart failure with conconmitent Pulmonary congestion; clinically evident, weight down by 1 pound, some clinical improvement, BNP improvement 1780, today 40 mg Lasix this morning 20 mg at 1500. potassium supplementation will be slightly increased, on ARB so we'll monitor levels carefully, telemetry-- however can come out of CCU. [id number] high 5; on Coumadin, subtherapeutic INR will give 5 mg tonight. Will need echocardiogram. Bilateral pleural effusions, Lasix, incentive spirometer, monitor oxygen saturations. Atrial fibrillation, chronic, needs better control, continue with beta marci, currently on 100 mg by mouth twice a day. May have to give diltiazem tonight if RVR greater than 90. Place on CCB today INR slightly subtherapeutic, on Coumadin increased to 5 mg tonight Ischemic cardiomyopathy--no active chest pain, concerning if heart rate above 90. Increase Lasix slightly today. Chronic obstructive pulmonary disease, seems stable on Advair, will monitor for the need for any CHRIS Chronic kidney disease, stage IV, creatinine 1 month ago was 1.85, now 1.41 Other chronic problems Insomnia, currently on trazodone, Iron deficiency anemia, on replacement therapy of iron Overall plan; Place on CCB, and removed from CCU today, however continue telemetry. Patient is hemodynamically stable tonight, we'll see how she responds to loop diuretics will attempt to get heart rate below 90 as she may not tolerate anything above this level due to her ischemic cardiomyopathy, continue with beta marci, monitor intake and output, daily weights, low sodium diet, Add ICS. Will need echocardiogram.
[2016-12-19] MEDS: Diltiazem 120 MG Cap.CD PO SCH (11:01)
[2016-12-19] MEDS ORDERED: Warfarin 5 MG Tab PO ONE (18:00)
[2016-12-19] MEDS ORDERED: Warfarin 2.5 MG Tab PO SCH (18:00)
[2016-12-19] MEDS: traZODone 50 MG Tab PO SCH (20:47)
[2016-12-19] MEDS: Acetaminophen 650 MG Tab.ER PO SCH (20:48)
[2016-12-20] MEDS ORDERED: [UNRECOGNIZED DRUG - REMARK] PO SCH (08:45)
[2016-12-20] MEDS: Polyethylene Glycol 3350 Powder 17 GM Packet PO SCH (08:47)
[2016-12-20] MEDS: Fluticasone/Salmeterol 250-50 MCG Inhalation Powder 14/Diskus INH SCH ×2 (08:50→20:47)
[2016-12-20] MEDS: Metoprolol Tartrate 50 MG Tab PO SCH ×2 (08:50→20:48)
[2016-12-20] MEDS: Diltiazem 120 MG Cap.CD PO SCH (08:52)
[2016-12-20] MEDS: Ascorbic Acid 500 MG Tab PO SCH (08:52)
[2016-12-20] MEDS: Potassium Chloride 10 MEQ Tab.ER PO SCH (08:52)
--- NOTE | 2016-12-20 09:29 | PCM.PN ---
- General Info Date of Service: 12/20/16 Functional Status: Reports: Pain Controlled, Tolerating Diet, Incentive Spirometry. Denies: New Symptoms - Review of Systems General: Denies: Fever Pulmonary: Reports: Shortness of Breath (Her shortness of breath has improved) Cardiovascular: Reports: Dyspnea on Exertion, Edema. 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) Psychiatric: Reports: Confusion - Patient Data Vitals - Most Recent: Last Vital Signs Temp 97.9 F 12/20/16 06:15 Pulse 92 12/20/16 08:50 Resp 20 12/20/16 06:30 BP 120/75 12/20/16 08:50 Pulse Ox 98 12/20/16 08:50 Weight - Most Recent: 135 lb I&O - Last 24 Hours: Intake & Output 12/19/16 12/20/16 12/20/16 22:59 06:59 14:59 Intake Total 50 50 Balance 50 50 Lab Results Last 24 Hours: Laboratory Results - last 24 hr 12/19/16 12/19/16 12/20/16 Range/Units 07:10 07:15 07:09 PT INR (0.9-1.1) Sodium 145 (136-145) mmol/L Potassium 4.4 (3.3-5.3) mmol/L Chloride 109 (98-115) mmol/L Carbon Dioxide 28.7 (21.0-32.0) mmol/L BUN 45 H (6-25) mg/dL Creatinine 1.60 H (0.51-1.17) mg/dL Est Cr Clr Drug Dosing 21.07 mL/min Estimated GFR (MDRD) 31 mL/min Glucose 104 (70-110) mg/dL Calcium 8.7 (8.7-10.3) mg/dL Troponin I < 0.04 (0.00-0.070) ng/mL TSH, Ultra Sensitive 1.610 (0.340-4.820) uIU/mL 12/20/16 Range/Units 08:50 PT TNP INR 2.2 H (0.9-1.1) Sodium (136-145) mmol/L Potassium (3.3-5.3) mmol/L Chloride (98-115) mmol/L Carbon Dioxide (21.0-32.0) mmol/L BUN (6-25) mg/dL Creatinine (0.51-1.17) mg/dL Est Cr Clr Drug Dosing mL/min Estimated GFR (MDRD) mL/min Glucose (70-110) mg/dL Calcium (8.7-10.3) mg/dL Troponin I (0.00-0.070) ng/mL TSH, Ultra Sensitive (0.340-4.820) uIU/mL Med Orders - Current: Current Medications Acetaminophen (Tylenol) 650 mg PO Q6H PRN PRN Reason: Pain Last Admin: 12/19/16 08:10 Dose: 650 mg Acetaminophen (Tylenol Arthritis Pain) 650 mg PO BEDTIME [facility] Last Admin: 12/19/16 20:48 Dose: 650 mg Ascorbic Acid (Vitamin C) 500 mg PO DAILY [facility] Last Admin: 12/20/16 08:52 Dose: 500 mg Atropine Sulfate (Atropine 0.1 Mg/Ml) 0 mg IVPUSH ASDIRECTED PRN PRN Reason: Heart Diltiazem HCl (Cardizem Cd) 120 mg PO DAILY [facility] Last Admin: 12/20/16 08:52 Dose: Not Given Epinephrine HCl (Epinephrine 1:10,000) 1 mg IVPUSH ASDIRECTED PRN PRN Reason: Heart Lidocaine HCl (Xylocaine 2%) 0 mg IVPUSH ASDIRECTED PRN PRN Reason: Heart Metoprolol Tartrate (Lopressor) 100 mg PO BID [facility] Last Admin: 12/20/16 08:50 Dose: 100 mg Nitroglycerin (Nitrostat) 0.4 mg SL Q5M PRN PRN Reason: Chest Pain Pharmacy Dosing/Monitoring Of Warfarin 0 each PO ASDIRECTED [facility] Polyethylene Glycol (Miralax) 17 gm PO DAILY [facility] Last Admin: 12/20/16 08:47 Dose: 17 gm Potassium Chloride (Klor-Con 10) 10 meq PO DAILY [facility] Last Admin: 12/20/16 08:52 Dose: 10 meq Fluticasone/Salmeterol (Advair Diskus 250-50) 1 puff INH BID [facility] Last Admin: 12/20/16 08:50 Dose: 1 puff Senna/Docusate Sodium (Senna Plus) 1 tab PO BID [facility] Last Admin: 12/20/16 08:50 Dose: 1 tab Sodium Chloride (Syrex Flush) 5 ml FLUSH Q8HR PRN PRN Reason: Keep Vein Open Last Admin: 12/19/16 08:14 Dose: 5 ml Trazodone HCl (Trazodone) 12.5 mg PO BEDTIME [facility] Last Admin: 12/19/16 20:47 Dose: 12.5 mg Warfarin Sodium (Coumadin) 2.5 mg PO MoWeFr@1800 [facility] Warfarin Sodium (Coumadin) 3.75 mg PO SuTuThSa@1800 [facility] Discontinued Medications Diltiazem HCl (Diltiazem) 10 mg IVPUSH ONETIME ONE Stop: 12/18/16 15:39 Last Admin: 12/18/16 16:04 Dose: 10 mg Furosemide (Lasix) 40 mg IVPUSH NOW ONE Stop: 12/18/16 17:59 Last Admin: 12/18/16 19:32 Dose: 40 mg Furosemide (Lasix) 40 mg IVPUSH DAILY [facility] Furosemide (Lasix) 40 mg IVPUSH NOW ONE Stop: 12/19/16 10:46 Last Admin: 12/19/16 11:00 Dose: 40 mg Furosemide (Lasix) 20 mg IVPUSH DAILY ONE Stop: 12/19/16 15:01 Last Admin: 12/19/16 15:32 Dose: 20 mg Sodium Chloride (Syrex Flush) 5 ml FLUSH Q8HR PRN PRN Reason: Keep Vein Open Warfarin Sodium (Coumadin) 5 mg PO ONETIME ONE Stop: 12/19/16 18:01 Last Admin: 12/19/16 17:39 Dose: 5 mg - Exam Quality Assessment: No: Supplemental Oxygen (Was on low oxygen yesterday however not needed today) General: Alert, Cooperative Neck: JVD Lungs: Crackles (Radicles are scant basis--much improved from yesterday). No: Rhonchi, Rub, Wheezing Cardiovascular: No Murmurs, Irregular Rhythm. No: Tachycardia (Slight AV francy breakthrough on ambulation at 104) GI/Abdominal Exam: Soft, Non-Tender (Female) Exam: Deferred Peripheral Pulses: 2+: Radial (L), Radial (R) Psy/Mental Status: Alert, Normal Mood - Problem List Review Problem List Initiated/Reviewed/Updated: Yes - My Orders Last 24 Hours: My Active Orders 12/19/16 08:26 Atropine [Atropine 0.1 MG/ML] 0 mg IVPUSH ASDIRECTED PRN EPINEPHrine [EPINEPHrine 1:10,000] 1 mg IVPUSH ASDIRECTED PRN Lidocaine 2% [Xylocaine 2%] 0 mg IVPUSH ASDIRECTED PRN 12/19/16 09:00 Ascorbic Acid [Vitamin C] 500 mg PO DAILY Polyethylene Glycol 3350 [MiraLAX] 17 gm PO DAILY 12/19/16 10:13 Incentive Spirometry [RT Incentive Spirometry] [RC] ASDIRECTED 12/19/16 11:00 Diltiazem [Cardizem CD] 120 mg PO DAILY 12/19/16 13:44 Antiembolic Devices [RC] PER UNIT ROUTINE SOILA Hose [Antiembolic Hose] [OM.PC] Routine 12/19/16 18:00 Warfarin [Coumadin] 2.5 mg PO MoWeFr@1800 12/20/16 08:45 Non-Formulary Medication [NF Drug] 0 each PO ASDIRECTED 12/20/16 18:00 Warfarin [Coumadin] 3.75 mg PO SuTuThSa@1800 12/21/16 06:00 INR,PT,PROTHROMBIN TIME [COAG] DAILY 12/22/16 06:00 INR,PT,PROTHROMBIN TIME [COAG] DAILY 12/23/16 06:00 INR,PT,PROTHROMBIN TIME [COAG] DAILY 12/24/16 06:00 INR,PT,PROTHROMBIN TIME [COAG] DAILY - Plan Plan:: This 81-year-old female was sent to ED from local half-way due to some increasing shortness of breath along with edema. Patient does have atrial fibrillation chronic and is on a beta marci however she came into the ED with RVR. She has chronic atrial fibrillation and this has been controlled on Metoprolol and is on Coumadin. INR slightly subtherapeutic. Patient also has a history of ischemic cardiac myopathy and she recently about one month ago she did have her Lasix reduced to 40 mg a.m. 20 and the p.m. due to increasing creatinine levels. Patient has COPD and is on the Advair, history of hypercholesterolemia and is on statin therapy. She does also have a history of ERVIN and currently on iron supplementation. She denies chest pain, troponin and EKG negative. BNP elevated Pertinent diagnostics is an initial treatment Chest x-ray, bilateral pleural effusions, cardiomegaly with pulmonary vascular congestion EKG. A. fib, RVR heart rate 114 Troponin, normal, will trend Lasix 40 mg IVP on admission Diltiazem and IV push 1 in ED CODE STATUS, full code Update today on rounds, less JVD, loss about 2.5 pounds, output not measurable due to incontinence, less shortness of breath, heart rate much improved however not quite optimal for her condition. INR improved at 2.2, creatinine creeping up --likely due to loop diuretics. Out of CCU now, IMPRESSION/PLAN Heart failure with conconmitent Pulmonary congestion; clinically evident, fluid overload, BNP, 2140, continue with 40/20 loop diuretic. potassium supplementation, telemetry. [id number] high 5; on Coumadin, INR improved it 2.2, echocardiogram ordered as outpatient. Add MARITZA inhibitor--30% rising creatinine anticipated. Blood pressure adequate Atrial fibrillation, chronic, improved control however not optimal. continue with beta marci, currently on 100 mg by mouth twice a day. on Coumadin, INR improved to 2.2. Increase Cardizem to 180 mg Ischemic cardiomyopathy--no active chest pain, concerning if heart rate above 90. On Lasix Chronic obstructive pulmonary disease, seems stable on Advair, will monitor for the need for any CHRIS Chronic kidney disease, stage IV, anticipate 30% increase in creatinine due to MARITZA inhibitor addition. Other chronic problems Insomnia, currently on trazodone, Iron deficiency anemia, on replacement therapy of iron Overall plan; changes include increase Cardizem. Add MARITZA inhibitor, will continue with telemetry, echocardiogram ordered as outpatient. Chest x-ray with PA and lateral a.m.
[2016-12-20] MEDS ORDERED: Lisinopril 5 MG Tab PO SCH (09:45)
[2016-12-20] MEDS ORDERED: Furosemide 40 MG/4 ML VIAL IVPUSH ONE ×2 (10:00→16:00)
[2016-12-20] MEDS: Diltiazem 180 MG Cap.CD PO SCH (10:26)
[2016-12-20] MEDS ORDERED: Warfarin 2.5 MG Tab PO SCH (18:00)
[2016-12-20] MEDS: traZODone 50 MG Tab PO SCH (20:49)
[2016-12-20] MEDS: Acetaminophen 650 MG Tab.ER PO SCH (20:49)
[2016-12-21] MEDS ORDERED: Lisinopril 5 MG Tab PO SCH (08:23)
[2016-12-21] MEDS: Polyethylene Glycol 3350 Powder 17 GM Packet PO SCH (08:31)
[2016-12-21] MEDS: Ascorbic Acid 500 MG Tab PO SCH (08:31)
[2016-12-21] MEDS: Potassium Chloride 10 MEQ Tab.ER PO SCH (08:31)
[2016-12-21] MEDS: Fluticasone/Salmeterol 250-50 MCG Inhalation Powder 14/Diskus INH SCH ×2 (08:44→20:05)
--- NOTE | 2016-12-21 10:12 | PCM.PN ---
- General Info Date of Service: 12/21/16 Functional Status: Reports: Pain Controlled, Tolerating Diet, Ambulating, Incentive Spirometry. Denies: New Symptoms - Review of Systems General: Denies: Fever HEENT: Reports: No Symptoms Cardiovascular: Reports: Orthopnea, PND (Her PND has improved. ) Gastrointestinal: Reports: No Symptoms, Difficulty Swallowing, Nausea Genitourinary: Reports: Incontinence Skin: Reports: No Symptoms Neurological: Denies: Confusion Psychiatric: Reports: No Symptoms - Patient Data Vitals - Most Recent: Last Vital Signs Temp 97.8 F 12/21/16 06:30 Pulse 60 12/21/16 08:44 Resp 18 12/21/16 06:30 BP 89/48 L 12/21/16 06:30 Pulse Ox 96 12/21/16 08:44 Weight - Most Recent: 135 lb I&O - Last 24 Hours: Intake & Output 12/20/16 12/21/16 12/21/16 22:59 06:59 14:59 Intake Total 170 Output Total 150 Balance 20 Lab Results Last 24 Hours: Laboratory Results - last 24 hr 12/21/16 12/21/16 Range/Units 07:10 07:10 PT 22.3 H (8.9-11.4) SEC INR 2.1 H (0.9-1.1) Sodium 143 (136-145) mmol/L Potassium 4.1 (3.3-5.3) mmol/L Chloride 108 (98-115) mmol/L Carbon Dioxide 27.2 (21.0-32.0) mmol/L BUN 49 H (6-25) mg/dL Creatinine 1.74 H (0.51-1.17) mg/dL Est Cr Clr Drug Dosing 19.37 mL/min Estimated GFR (MDRD) 28 mL/min Glucose 107 (70-110) mg/dL Calcium 8.3 L (8.7-10.3) mg/dL Med Orders - Current: Current Medications Acetaminophen (Tylenol) 650 mg PO Q6H PRN PRN Reason: Pain Last Admin: 12/19/16 08:10 Dose: 650 mg Acetaminophen (Tylenol Arthritis Pain) 650 mg PO BEDTIME [facility] Last Admin: 12/20/16 20:49 Dose: 650 mg Ascorbic Acid (Vitamin C) 500 mg PO DAILY [facility] Last Admin: 12/21/16 08:31 Dose: 500 mg Atropine Sulfate (Atropine 0.1 Mg/Ml) 0 mg IVPUSH ASDIRECTED PRN PRN Reason: Heart Diltiazem HCl (Cardizem Cd) 180 mg PO DAILY [facility] Last Admin: 12/20/16 10:26 Dose: 180 mg Epinephrine HCl (Epinephrine 1:10,000) 1 mg IVPUSH ASDIRECTED PRN PRN Reason: Heart Lidocaine HCl (Xylocaine 2%) 0 mg IVPUSH ASDIRECTED PRN PRN Reason: Heart Lisinopril (Prinivil) 2.5 mg PO DAILY [facility] Metoprolol Tartrate (Lopressor) 100 mg PO BID [facility] Last Admin: 12/20/16 20:48 Dose: 100 mg Nitroglycerin (Nitrostat) 0.4 mg SL Q5M PRN PRN Reason: Chest Pain Polyethylene Glycol (Miralax) 17 gm PO DAILY [facility] Last Admin: 12/21/16 08:31 Dose: 17 gm Potassium Chloride (Klor-Con 10) 10 meq PO DAILY [facility] Last Admin: 12/21/16 08:31 Dose: 10 meq Fluticasone/Salmeterol (Advair Diskus 250-50) 1 puff INH BID [facility] Last Admin: 12/21/16 08:44 Dose: 1 puff Senna/Docusate Sodium (Senna Plus) 1 tab PO BID [facility] Last Admin: 12/21/16 08:31 Dose: 1 tab Sodium Chloride (Syrex Flush) 5 ml FLUSH Q8HR PRN PRN Reason: Keep Vein Open Last Admin: 12/19/16 08:14 Dose: 5 ml Trazodone HCl (Trazodone) 12.5 mg PO BEDTIME [facility] Last Admin: 12/20/16 20:49 Dose: 12.5 mg Warfarin Sodium (Coumadin) 2.5 mg PO MoWeFr@1800 [facility] Warfarin Sodium (Coumadin) 3.75 mg PO SuTuThSa@1800 [facility] Last Admin: 12/20/16 17:01 Dose: 3.75 mg Warfarin Sodium (Coumadin) 0 mg PO ASDIRECTED [facility] Discontinued Medications Diltiazem HCl (Diltiazem) 10 mg IVPUSH ONETIME ONE Stop: 12/18/16 15:39 Last Admin: 12/18/16 16:04 Dose: 10 mg Diltiazem HCl (Cardizem Cd) 120 mg PO DAILY [facility] Last Admin: 12/20/16 08:52 Dose: Not Given Furosemide (Lasix) 40 mg IVPUSH NOW ONE Stop: 12/18/16 17:59 Last Admin: 12/18/16 19:32 Dose: 40 mg Furosemide (Lasix) 40 mg IVPUSH DAILY [facility] Furosemide (Lasix) 40 mg IVPUSH NOW ONE Stop: 12/19/16 10:46 Last Admin: 12/19/16 11:00 Dose: 40 mg Furosemide (Lasix) 20 mg IVPUSH DAILY ONE Stop: 12/19/16 15:01 Last Admin: 12/19/16 15:32 Dose: 20 mg Furosemide (Lasix) 40 mg IVPUSH NOW ONE Stop: 12/20/16 10:01 Last Admin: 12/20/16 10:26 Dose: 40 mg Furosemide (Lasix) 20 mg IVPUSH ONETIME ONE Stop: 12/20/16 16:01 Last Admin: 12/20/16 16:54 Dose: 20 mg Lisinopril (Prinivil) 5 mg PO DAILY [facility] Last Admin: 12/20/16 10:26 Dose: 5 mg Sodium Chloride (Syrex Flush) 5 ml FLUSH Q8HR PRN PRN Reason: Keep Vein Open Warfarin Sodium (Coumadin) 5 mg PO ONETIME ONE Stop: 12/19/16 18:01 Last Admin: 12/19/16 17:39 Dose: 5 mg - Exam Quality Assessment: No: Supplemental Oxygen General: Alert, Oriented Neck: JVD (slight JVD) Lungs: Crackles (slight crackles--much improved. ) Cardiovascular: Irregular Rhythm GI/Abdominal Exam: No Distention (Female) Exam: Deferred Back Exam: No: CVA Tenderness (R) Psy/Mental Status: Alert, Normal Affect, Normal Mood - Problem List Review Problem List Initiated/Reviewed/Updated: Yes - My Orders Last 24 Hours: My Active Orders 12/20/16 10:00 Diltiazem [Cardizem CD] 180 mg PO DAILY 12/20/16 13:00 Warfarin [Coumadin] 0 mg PO ASDIRECTED 12/20/16 18:00 Warfarin [Coumadin] 3.75 mg PO SuTuThSa@1800 12/21/16 06:30 CXR [Chest 2V] [CR] Routine 12/21/16 08:23 Lisinopril [Prinivil] 2.5 mg PO DAILY 12/22/16 06:00 INR,PT,PROTHROMBIN TIME [COAG] DAILY 12/23/16 06:00 INR,PT,PROTHROMBIN TIME [COAG] DAILY 12/24/16 06:00 INR,PT,PROTHROMBIN TIME [COAG] DAILY - Plan Plan:: This 81-year-old female was sent to ED from local [facility] due to some increasing shortness of breath along with edema. Patient does have atrial fibrillation chronic and is on a beta marci however she came into the ED with RVR. She has chronic atrial fibrillation and this has been controlled on Metoprolol and is on Coumadin. INR slightly subtherapeutic. Patient also has a history of ischemic cardiac myopathy and she recently about one month ago she did have her Lasix reduced to 40 mg a.m. 20 and the p.m. due to increasing creatinine levels. Patient has COPD and is on the Advair, history of hypercholesterolemia and is on statin therapy. She does also have a history of ERVIN and currently on iron supplementation. She denies chest pain, troponin and EKG negative. BNP elevated Pertinent diagnostics is an initial treatment Chest x-ray, bilateral pleural effusions, cardiomegaly with pulmonary vascular congestion EKG. A. fib, RVR heart rate 114 Troponin, normal, will trend Lasix 40 mg IVP on admission Diltiazem and IV push 1 in ED CODE STATUS, full code Update today on rounds, less JVD, weight up 2 lbs today but overall loss 6 lbs. output not measurable due to incontinence, less shortness of breath, heart rate much improved. INR improved at 2.1, BP low, asymtomatic. IMPRESSION/PLAN Heart failure with conconmitent Pulmonary congestion on admission, CXR shows improvment in cephlazation, BNP improved continue with 40/20 loop diuretic and consider thiazides if no response. potassium supplementation, telemetry. [id number] high 5; on Coumadin, INR 2.1, echocardiogram ordered as outpatient. At this time not toleratable to ACEI will stop for now and reconsider after ECHO as outpatient. MAP 60-70 Atrial fibrillation, chronic, rate control stategy since permanent, improved control sinced added CCB. continue with beta marci, currently on 100 mg by mouth twice a day. on Coumadin, INR improved to 2.1. Bilateal Pulmonary effusions, ICS, lasix. Ischemic cardiomyopathy--no active chest pain, concerning if heart rate above 90. On Lasix Chronic obstructive pulmonary disease, seems stable on Advair, will monitor for the need for any CHRIS Chronic kidney disease, stage IV, Other chronic problems Insomnia, currently on trazodone, Iron deficiency anemia, on replacement therapy of iron Overall plan; Continue monitor BP and HR today, lasix, Hold from addint ACEI, echocardiogram was ordered as outpatient.Very likely DC in am.
[2016-12-21] MEDS: Diltiazem 180 MG Cap.CD PO SCH (11:15)
[2016-12-21] MEDS: Furosemide 40 MG/4 ML VIAL IVPUSH SCH (11:15)
[2016-12-21] MEDS: Metoprolol Tartrate 50 MG Tab PO SCH ×2 (11:16→20:04)
[2016-12-21] MEDS: Sodium Chloride 0.9% 5 ML Syringe FLUSH PRN (11:16)
[2016-12-21] MEDS ORDERED: Furosemide 40 MG/4 ML VIAL IVPUSH ONE (16:00)
[2016-12-21] MEDS: traZODone 50 MG Tab PO SCH (20:04)
[2016-12-21] MEDS: Acetaminophen 650 MG Tab.ER PO SCH (20:05)
[2016-12-22 06:45] VITALS: BP 125/49
[2016-12-22] MEDS: Fluticasone/Salmeterol 250-50 MCG Inhalation Powder 14/Diskus INH SCH (08:25)
[2016-12-22] MEDS: Polyethylene Glycol 3350 Powder 17 GM Packet PO SCH (08:26)
[2016-12-22] MEDS: Furosemide 40 MG/4 ML VIAL IVPUSH SCH (08:28)
[2016-12-22] MEDS: Ascorbic Acid 500 MG Tab PO SCH (08:29)
[2016-12-22] MEDS: Diltiazem 180 MG Cap.CD PO SCH (08:29)
[2016-12-22] MEDS: Potassium Chloride 10 MEQ Tab.ER PO SCH (08:30)
[2016-12-22] MEDS: Metoprolol Tartrate 50 MG Tab PO SCH (08:31)
--- NOTE | 2016-12-22 11:14 | PCM.DCSUM1 ---
Discharge Summary - Hospital Course Free Text/Narrative:: Ms. Hardin is an 81yoF with a history notable for atrial fibrillation and ischemic cardiomyopathy who presented to the [facility] ED with shortness of breath and found to be in acute systolic heart failure and atrial fibrillation with RVR for which she was admitted for inpatient management. See hospital course by problem below: # Acute on chronic systolic heart failure: Initial BMP 2140 and CXR showed bilateral pleural effusions and pulmonary vascular congestion. Initially slow, but then improved, response to IV diuresis for which she was close to baseline weight on day of discharge. She had been receiving a total of 60mg IV furosemide on the two days prior to discharge, so this was changed to 40mg po BID with the plan to reassess metabolic panel and fluid status early next week to make determination on further titration. ACEI was also discontinued. Outpatient echo was ordered as she has no recent echo. # Atrial fibrillation with RVR: Initial EKG with rate of 114. Outpatient metoprolol was continued in addition to starting diltiazem (initially IV, and then transitioned to po) with good improvement in rate. Warfarin anticoagulation was continued throughout stay. # Ischemic cardiomyopathy: Stable throughout stay. Troponins were trended and negative. # CKD, stage IV: Most recent prior to admission was 1.44, with it being around 1.85 prior to furosemide dose was decreased to 40mg AM/20mg PM. Cr 1.74 on the day prior to admission. ACEI was discontinued. Total furosemide dosing was decreased at discharge with switch from IV to po, so will reassess metabolic panel next week to make determination on further titration. Her other outpatient medications for COPD, HLD, iron deficiency anemia, and insomnia were continued throughout her stay. No other concerns arose during the hospitalization. She was discharged back to [facility]. Outpatient plan 1) BMP next Monday to be drawn at [facility]. 2) Outpatient echo to be scheduled next week. 3) Follow-up with Dr. Jana Perry or Brigid Reyes next week. - Discharge Data Discharge Date: 12/22/16 Discharge Disposition: DC/Tfer to [facility] 03 Condition: Fair - Discharge Diagnosis/Problem(s) (1) Atrial fibrillation with rapid ventricular response SNOMED Code(s): 155110220688677 ICD Code: I48.91 - UNSPECIFIED ATRIAL FIBRILLATION Status: Acute (2) CHF (congestive heart failure) SNOMED Code(s): 05644888 ICD Code: I50.9 - HEART FAILURE, UNSPECIFIED Status: Acute Qualifiers: Congestive heart failure chronicity: acute - Patient Instructions Diet: Usual Diet as Tolerated Activity: As Tolerated - Discharge Plan Prescriptions/Med Rec: Diltiazem [Cardizem CD] 180 mg PO DAILY #60 cap.cd Furosemide 40 mg PO BID #60 tablet Home Medications: Home Meds Fluticasone/Salmeterol [Advair 250-50 Diskus] 1 puff INH BID 05/31/14 [History] Furosemide [Furosemide] 20 mg PO BID 05/31/14 [History] atorvaSTATin [Lipitor] 20 mg PO BEDTIME 05/31/14 [History] Cranberry Extract [Cranberry] 450 mg PO DAILY 08/29/16 [History] Ferrous Sulfate 325 mg PO DAILY 08/29/16 [History] Multivitamins w-Iron/Ca/FA/Min [Thera M Plus] 1 tab PO DAILY 08/29/16 [History] Nitroglycerin [Nitrostat] 0.4 mg SL Q5M PRN 08/29/16 [History] Ascorbic Acid [Vitamin C] 500 mg PO DAILY 09/29/16 [History] Docusate Sodium/Sennosides [Senna Plus] 1 tab PO BID 09/29/16 [History] Potassium Chloride [Klor-Con 10] 10 meq PO DAILY 09/29/16 [History] Warfarin [Coumadin] 2.5 mg PO MOWEFR 09/29/16 [History] Warfarin [Coumadin] 3.75 mg PO SUTUTHSA 09/29/16 [History] traZODone HCl [Trazodone HCl] 12.5 mg PO BEDTIME 09/29/16 [History] Acetaminophen [Tylenol Arthritis] 650 mg PO BEDTIME 12/18/16 [History] Metoprolol Tartrate [Lopressor] 100 mg PO BID 12/18/16 [History] Polyethylene Glycol 3350 [MiraLAX] 17 gm PO DAILY 12/18/16 [History] Acetaminophen [Acetaminophen ER] 650 mg PO Q6H PRN 12/19/16 [History] Calcium Carbonate/Vitamin D3 [Calcium 600 + Vit D 400 Softgl] 1 cap PO DAILY [History] Diltiazem [Cardizem CD] 180 mg PO DAILY #60 cap.cd 12/22/16 [Rx] Furosemide 40 mg PO BID #60 tablet 12/22/16 [Rx] Referrals: Jana Perry MD [Primary Care Provider] - - Discharge Summary/Plan Comment DC Time >30 min.: Yes - General Info Date of Service: 12/22/16 Subjective Update: Ms. Hardin reports feeling quite well this morning. No new complaints. She desires discharge back to [facility]. Functional Status: Reports: Pain Controlled, Tolerating Diet, Urinating. Denies : New Symptoms - Review of Systems General: Denies: Fever, Fatigue Pulmonary: Denies: Shortness of Breath Cardiovascular: Denies: Chest Pain, Palpitations Gastrointestinal: Denies: Abdominal Pain, Nausea - Patient Data Vitals - Most Recent: Last Vital Signs Temp 36.4 C 12/22/16 06:44 Pulse 67 12/22/16 08:31 Resp 20 12/22/16 06:44 BP 125/49 L 12/22/16 08:31 Pulse Ox 97 12/22/16 06:44 Weight - Most Recent: 73.119 kg I&O - Last 24 hours: Intake & Output 12/21/16 12/22/16 12/22/16 22:59 06:59 14:59 Intake Total 300 0 Balance 300 0 Lab Results - Last 24 hrs: Laboratory Results - last 24 hr 12/22/16 Range/Units 07:10 PT 24.7 H (8.9-11.4) SEC INR 2.3 H (0.9-1.1) Med Orders - Current: Current Medications Acetaminophen (Tylenol) 650 mg PO Q6H PRN PRN Reason: Pain Last Admin: 12/19/16 08:10 Dose: 650 mg Acetaminophen (Tylenol Arthritis Pain) 650 mg PO BEDTIME AGATHA Last Admin: 12/21/16 20:05 Dose: 650 mg Ascorbic Acid (Vitamin C) 500 mg PO DAILY [facility] Last Admin: 12/22/16 08:29 Dose: 500 mg Atropine Sulfate (Atropine 0.1 Mg/Ml) 0 mg IVPUSH ASDIRECTED PRN PRN Reason: Heart Diltiazem HCl (Cardizem Cd) 180 mg PO DAILY [facility] Last Admin: 12/22/16 08:29 Dose: 180 mg Epinephrine HCl (Epinephrine 1:10,000) 1 mg IVPUSH ASDIRECTED PRN PRN Reason: Heart Furosemide (Lasix) 40 mg IVPUSH DAILY [facility] Last Admin: 12/22/16 08:28 Dose: 40 mg Lidocaine HCl (Xylocaine 2%) 0 mg IVPUSH ASDIRECTED PRN PRN Reason: Heart Metoprolol Tartrate (Lopressor) 100 mg PO BID [facility] Last Admin: 12/22/16 08:31 Dose: 100 mg Nitroglycerin (Nitrostat) 0.4 mg SL Q5M PRN PRN Reason: Chest Pain Polyethylene Glycol (Miralax) 17 gm PO DAILY [facility] Last Admin: 12/22/16 08:26 Dose: 17 gm Potassium Chloride (Klor-Con 10) 10 meq PO DAILY [facility] Last Admin: 12/22/16 08:30 Dose: 10 meq Fluticasone/Salmeterol (Advair Diskus 250-50) 1 puff INH BID [facility] Last Admin: 12/22/16 08:25 Dose: 1 puff Senna/Docusate Sodium (Senna Plus) 1 tab PO BID [facility] Last Admin: 12/22/16 08:31 Dose: 1 tab Sodium Chloride (Syrex Flush) 5 ml FLUSH Q8HR PRN PRN Reason: Keep Vein Open Last Admin: 12/21/16 11:16 Dose: 5 ml Trazodone HCl (Trazodone) 12.5 mg PO BEDTIME [facility] Last Admin: 12/21/16 20:04 Dose: 12.5 mg Warfarin Sodium (Coumadin) 2.5 mg PO [email or web address] [facility] Last Admin: 12/21/16 18:19 Dose: 2.5 mg Warfarin Sodium (Coumadin) 3.75 mg PO [email or web address] [facility] Last Admin: 12/20/16 17:01 Dose: 3.75 mg Warfarin Sodium (Coumadin) 0 mg PO ASDIRECTED [facility] Discontinued Medications Diltiazem HCl (Diltiazem) 10 mg IVPUSH ONETIME ONE Stop: 12/18/16 15:39 Last Admin: 12/18/16 16:04 Dose: 10 mg Diltiazem HCl (Cardizem Cd) 120 mg PO DAILY [facility] Last Admin: 12/20/16 08:52 Dose: Not Given Furosemide (Lasix) 40 mg IVPUSH NOW ONE Stop: 12/18/16 17:59 Last Admin: 12/18/16 19:32 Dose: 40 mg Furosemide (Lasix) 40 mg IVPUSH DAILY [facility] Furosemide (Lasix) 40 mg IVPUSH NOW ONE Stop: 12/19/16 10:46 Last Admin: 12/19/16 11:00 Dose: 40 mg Furosemide (Lasix) 20 mg IVPUSH DAILY ONE Stop: 12/19/16 15:01 Last Admin: 12/19/16 15:32 Dose: 20 mg Furosemide (Lasix) 40 mg IVPUSH NOW ONE Stop: 12/20/16 10:01 Last Admin: 12/20/16 10:26 Dose: 40 mg Furosemide (Lasix) 20 mg IVPUSH ONETIME ONE Stop: 12/20/16 16:01 Last Admin: 12/20/16 16:54 Dose: 20 mg Furosemide (Lasix) 20 mg IVPUSH NOW ONE Stop: 12/21/16 16:01 Last Admin: 12/21/16 15:45 Dose: 20 mg Lisinopril (Prinivil) 5 mg PO DAILY [facility] Last Admin: 12/20/16 10:26 Dose: 5 mg Lisinopril (Prinivil) 2.5 mg PO DAILY [facility] Last Admin: 12/21/16 11:23 Dose: Not Given Sodium Chloride (Syrex Flush) 5 ml FLUSH Q8HR PRN PRN Reason: Keep Vein Open Warfarin Sodium (Coumadin) 5 mg PO ONETIME ONE Stop: 12/19/16 18:01 Last Admin: 12/19/16 17:39 Dose: 5 mg - Exam General: Reports: Alert, Oriented, Cooperative HEENT: Reports: Mucous Membr. Moist/[place]: Reports: Supple Lungs: Reports: Normal Respiratory Effort, Decreased Breath Sounds (with faint crackles in bilateral bases) Cardiovascular: Reports: Regular Rate, Irregular Rhythm GI/Abdominal Exam: Normal Bowel Sounds, Soft, Non-Tender Extremities: Pedal Edema (trace bilaterally) Skin: Reports: Warm, Dry, Intact Psy/Mental Status: Reports: Alert, Normal Affect, Normal Mood *Q Meaningful Use (DIS) - VTE *Q VTE Criteria *Q: - Stroke *Q Stroke Criteria *Q: - AMI *Q AMI Criteria *Q:
== END 2016-12-22 11:40 | DRG 291 ==
LOC: KA.ED 15:00 → KA.MS 17:56
PROVIDERS: ADMIT Physician Assistant Medical; ATTEND Nurse Practitioner Family
DX: I13.0 Hypertensive heart and chronic kidney disease with heart failure and stage 1 through stage 4 chronic kidney disease, or unspecified chronic kidney disease (principal); I50.9 Heart failure, unspecified; N18.3 Chronic kidney disease, stage 3 (moderate); I50.23 Acute on chronic systolic (congestive) heart failure; E78.00 Pure hypercholesterolemia, unspecified; N18.4 Chronic kidney disease, stage 4 (severe); I48.2 Chronic atrial fibrillation; Z79.01 Long term (current) use of anticoagulants; I25.5 Ischemic cardiomyopathy; I25.2 Old myocardial infarction; J44.9 Chronic obstructive pulmonary disease, unspecified; E78.5 Hyperlipidemia, unspecified; D50.9 Iron deficiency anemia, unspecified; G47.00 Insomnia, unspecified; R32 Unspecified urinary incontinence; M19.90 Unspecified osteoarthritis, unspecified site; Z79.899 Other long term (current) drug therapy
CPT/HCPCS: 36415; 36416; 71010; 71020; 80048; 82550; 82553; 83880; 84443; 84484; 85025; 85610; 85730; 93005; 94640; 96374; 99285; A9270-GY; J1940; J3490

== ENCOUNTER 2017-06-30 17:00 | Inpatient (IN) | payer MEDICARE, MEDICAID ==
[2017-06-30] MEDS ORDERED: Nitroglycerin 0.4 MG Tab.SL SL PRN (18:07)
[2017-06-30] MEDS ORDERED: Acetaminophen 650 MG Tab.ER PO PRN ×2 (18:07→19:00)
[2017-06-30] MEDS ORDERED: Warfarin 2.5 MG Tab PO ONE (18:09)
[2017-06-30] MEDS: Furosemide 40 MG/4 ML VIAL IVPUSH SCH (18:25)
[2017-06-30] MEDS: Acetaminophen 650 MG Tab.ER PO SCH ×2 (18:38→20:19)
[2017-06-30] MEDS: atorvaSTATin 10 MG Tab PO SCH (20:18)
[2017-06-30] MEDS: Fluticasone/Salmeterol 250-50 MCG Inhalation Powder 14/Diskus INH SCH (20:18)
[2017-06-30] MEDS: Metoprolol Tartrate 50 MG Tab PO SCH (20:18)
[2017-06-30] MEDS: Diclofenac Sodium 1% Gel 100 GM Tube TOP SCH (20:19)
[2017-06-30] MEDS ORDERED: Diclofenac Sodium 1% Gel 100 GM Tube TOP SCH (21:00)
[2017-07-01] MEDS: Ferrous Sulfate 325 MG Tab PO SCH (08:15)
[2017-07-01] MEDS: Diltiazem 180 MG Cap.CD PO SCH (08:16)
[2017-07-01] MEDS: Ascorbic Acid 500 MG Tab PO SCH (08:16)
[2017-07-01] MEDS: Calcium Citrate/Vitamin D3 315 MG-250 Unit Tab PO SCH (08:17)
[2017-07-01] MEDS: Fluticasone/Salmeterol 250-50 MCG Inhalation Powder 14/Diskus INH SCH ×2 (08:17→20:44)
[2017-07-01] MEDS: Multivitamins with Minerals/Iron/Folic Acid/Lycopene Tab PO SCH (08:17)
[2017-07-01] MEDS: Acetaminophen 650 MG Tab.ER PO SCH ×4 (08:17→20:44)
[2017-07-01] MEDS: Furosemide 40 MG/4 ML VIAL IVPUSH SCH (08:18)
[2017-07-01] MEDS: Metoprolol Tartrate 50 MG Tab PO SCH ×2 (08:18→20:45)
[2017-07-01] MEDS: Polyethylene Glycol 3350 Powder 17 GM Packet PO SCH (08:20)
[2017-07-01] MEDS: Diclofenac Sodium 1% Gel 100 GM Tube TOP SCH ×3 (08:23→20:48)
[2017-07-01] MEDS ORDERED: CRANBERRY EXTRACT 450 MG PO SCH (09:00)
--- NOTE | 2017-07-01 11:21 | PCM.PN ---
- General Info Date of Service: 07/01/17 Subjective Update: Ms. Hardin reports feeling much better this morning. Swelling in her legs and face has reduced. Denies any new complaints. Son and [id number] accompany her today and report concern over ongoing pain in her R shoulder for which she has had pain for the past month. Binh states that it "aches all over " in her R shoulder. She denies injury and has been using analgesic rub with improvement. She denies any new complaints today, and specifically denies fever, chills, shortness of breath, chest pain, palpitations, decreased appetite, diarrhea, constipation, dysuria, hematuria, or urinary frequency. - Patient Data Vitals - Most Recent: Last Vital Signs Temp 38.2 C H 07/01/17 05:59 Pulse 106 H 07/01/17 08:18 Resp 20 07/01/17 05:59 BP 137/89 07/01/17 08:18 Pulse Ox 96 07/01/17 05:59 Weight - Most Recent: 81.556 kg I&O - Last 24 Hours: Intake & Output 06/30/17 07/01/17 07/01/17 22:59 06:59 14:59 Intake Total 180 0 Output Total 850 300 Balance -670 -300 Lab Results Last 24 Hours: Laboratory Results - last 24 hr 06/30/17 06/30/17 07/01/17 Range/Units 17:11 17:59 07:10 PT 22.9 H (8.9-11.4) SEC INR 2.9 H 2.3 H (0.9-1.1) Sodium (136-145) mmol/L Potassium (3.3-5.3) mmol/L Chloride (98-115) mmol/L Carbon Dioxide (21.0-32.0) mmol/L BUN (6-25) mg/dL Creatinine (0.51-1.17) mg/dL Est Cr Clr Drug Dosing mL/min Estimated GFR (MDRD) mL/min Glucose (70-110) mg/dL Calcium (8.7-10.3) mg/dL Total Bilirubin (0.2-1.0) mg/dL AST (15-37) U/L ALT (12-78) U/L Alkaline Phosphatase (46-116) IU/L Total Protein (6.4-8.2) g/dL Albumin (3.00-4.80) g/dL Specimen Type Urinfol Urine Color Yellow (YELLOW) Urine Appearance Turbid H (CLEAR) Urine pH 7.0 (5.0-9.0) Ur Specific [place] 1.025 (1.005-1.030) Urine Protein >=300 H (NEGATIVE) mg/dL Urine Glucose (UA) Negative (NEGATIVE) mg/dL Urine Ketones Negative (NEGATIVE) mg/dL Urine Occult Blood Large H (NEGATIVE) Urine Nitrite Positive H (NEGATIVE) Urine Bilirubin Negative (NEGATIVE) Urine Urobilinogen 0.2 (0.2-1.0) E.U./dL Ur Leukocyte Esterase Large H (NEGATIVE) Urine RBC Packed /HPF Urine WBC Packed /HPF Ur Epithelial Cells Few /LPF Urine Bacteria Many H (NONE TO FEW) /HPF 07/01/17 Range/Units 07:10 PT (8.9-11.4) SEC INR (0.9-1.1) Sodium 142 (136-145) mmol/L Potassium 3.9 (3.3-5.3) mmol/L Chloride 105 (98-115) mmol/L Carbon Dioxide 27.4 (21.0-32.0) mmol/L BUN 36 H (6-25) mg/dL Creatinine 1.59 H (0.51-1.17) mg/dL Est Cr Clr Drug Dosing 21.79 mL/min Estimated GFR (MDRD) 31 mL/min Glucose 99 (70-110) mg/dL Calcium 8.4 L (8.7-10.3) mg/dL Total Bilirubin 0.6 (0.2-1.0) mg/dL AST 23 (15-37) U/L ALT 24 (12-78) U/L Alkaline Phosphatase 84 (46-116) IU/L Total Protein 6.9 (6.4-8.2) g/dL Albumin 2.68 L (3.00-4.80) g/dL Specimen Type Urine Color (YELLOW) Urine Appearance (CLEAR) Urine pH (5.0-9.0) Ur Specific [place] (1.005-1.030) Urine Protein (NEGATIVE) mg/dL Urine Glucose (UA) (NEGATIVE) mg/dL Urine Ketones (NEGATIVE) mg/dL Urine Occult Blood (NEGATIVE) Urine Nitrite (NEGATIVE) Urine Bilirubin (NEGATIVE) Urine Urobilinogen (0.2-1.0) E.U./dL Ur Leukocyte Esterase (NEGATIVE) Urine RBC /HPF Urine WBC /HPF Ur Epithelial Cells /LPF Urine Bacteria (NONE TO FEW) /HPF [place] Results Last 24 Hours: Microbiology 06/30/17 15:55 Urine Culture - Preliminary Urine, Carvajal Cath (Indwelling) MIXED BALA DAY 1 Med Orders - Current: Current Medications Acetaminophen (Tylenol Arthritis Pain) 650 mg PO BEDTIME [facility] Last Admin: 06/30/17 20:19 Dose: 650 mg Acetaminophen (Tylenol Arthritis Pain) 650 mg PO TID@,, [facility] Last Admin: 07/01/17 08:17 Dose: 650 mg Ascorbic Acid (Vitamin C) 500 mg PO DAILY [facility] Last Admin: 07/01/17 08:16 Dose: 500 mg Atorvastatin Calcium (Lipitor) 20 mg PO BEDTIME [facility] Last Admin: 06/30/17 20:18 Dose: 20 mg Calcium Citrate (Calcium Citrate + D) 1 tab PO DAILY [facility] Last Admin: 07/01/17 08:17 Dose: 1 tab Diclofenac Sodium (Voltaren 1% Gel) 2 gm TOP TID [facility] Last Admin: 07/01/17 08:23 Dose: 1 applic Diltiazem HCl (Cardizem Cd) 180 mg PO DAILY [facility] Last Admin: 07/01/17 08:16 Dose: 180 mg Ferrous Sulfate (Ferrous Sulfate) 325 mg PO DAILY [facility] Last Admin: 07/01/17 08:15 Dose: 325 mg Furosemide (Lasix) 20 mg IVPUSH DAILY [facility] Metoprolol Tartrate (Lopressor) 100 mg PO BID [facility] Last Admin: 07/01/17 08:18 Dose: 100 mg Multivitamins/Minerals (Centrum) 1 tab PO DAILY [facility] Last Admin: 07/01/17 08:17 Dose: 1 tab Nitroglycerin (Nitrostat) 0.4 mg SL Q5M PRN PRN Reason: Chest Pain Polyethylene Glycol (Miralax) 17 gm PO DAILY [facility] Last Admin: 07/01/17 08:20 Dose: 17 gm Fluticasone/Salmeterol (Advair Diskus 250-50) 1 puff INH BID [facility] Last Admin: 07/01/17 08:17 Dose: 1 puff Senna/Docusate Sodium (Senna Plus) 1 tab PO BID [facility] Last Admin: 07/01/17 08:20 Dose: 1 tab Warfarin Sodium (Coumadin) 2.5 mg PO TUTHSA [facility] Warfarin Sodium (Coumadin) 3.75 mg PO SUMOWEFR [facility] Discontinued Medications Acetaminophen (Tylenol Arthritis Pain) 650 mg PO TID@08,11,19 PRN PRN Reason: Pain Acetaminophen (Tylenol Arthritis Pain) 650 mg PO DAILY PRN PRN Reason: Pain Diclofenac Sodium (Voltaren 1% Gel) gm TOP TID [facility] Furosemide (Lasix) 40 mg IVPUSH DAILY [facility] Last Admin: 07/01/17 08:18 Dose: 40 mg Non-Formulary Medication (Cranberry Extract [Cranberry]) 450 mg PO DAILY [facility] Warfarin Sodium (Coumadin) 2.5 mg PO ONETIME ONE Stop: 06/30/17 18:10 Last Admin: 06/30/17 18:38 Dose: 2.5 mg - Exam Physical Findings Comments:: GENERAL: Well-appearing elderly white female sitting in bedside chair in no acute distress. HEENT: Normocephalic, atraumatic. Conjunctiva clear. Mucous membranes moist. NECK: Supple, no masses. CV: Irregularly irregular, no murmurs, rubs, or gallops. 2+ radial pulses. PULMONARY: Normal effort, clear to auscultation bilaterally, no wheezes, rales, or rhonchi. ABDOMEN: Positive bowel sounds, soft, nontender, nondistended. EXTREMITIES: 2+ edema to knees bilaterally. MUSCULOSKELETAL: Moves all extremities well. NEUROLOGICAL: No obvious deficits. DERMATOLOGIC: Mild redness of face on forehead and cheeks. PSYCHIATRIC: Alert, interactive, appropriate affect. - Problem List Review Problem List Initiated/Reviewed/Updated: Yes - My Orders Last 24 Hours: My Active Orders 06/30/17 15:55 CULTURE URINE [RM] Routine 06/30/17 18:00 Insert Urinary Catheter [OM.PC] Stat Urinary Catheter Assessment [RC] 0100,0900,1700 06/30/17 21:00 Diclofenac Sodium [Voltaren 1% Gel] 2 gm TOP TID 07/01/17 11:19 Furosemide [Lasix] 20 mg IVPUSH DAILY 07/01/17 11:30 Warfarin [Coumadin] 2.5 mg PO TUTHSA 07/02/17 05:11 BASIC METABOLIC PANEL,BMP [CHEM] AM 07/02/17 11:16 Warfarin [Coumadin] 3.75 mg PO SUMOWEFR - Assessment Assessment:: Ms. Hardin is an 82yoF with history notable for HFrEF, ischemic cardiomyopathy, pulmonary hypertension, atrial fibrillation, and CKD3, who resides at [facility] who presented to the [facility] on 06/30/17 with worsening edema found to have acute heart failure for which she was admitted. # Acute on chronic HFrEF: 12/26/16 echo with EF 35%. On furosemide 40mg po daily as outpatient. Presentation with worsening edema and BNP 2270. Furosemide 40mg IV daily initiated. Since admission, has diuresed 1L and lost 1.2kg, while remaining hemodynamically stable with stable renal function and normal electrolytes. Continue furosemide 40mg IV with plan to decrease tomorrow based on ongoing clinical response. Continue monitoring strict I/O, daily weight, and VS. Recheck BMP tomorrow. # Ischemic cardiomyopathy/HTN/pulmonary HTN: Stable without s/sx of ischemia and with reasonable BP control. Continue outpatient metoprolol and diltiazem. # Atrial fibrillation: Rate with borderline control. INR therapeutic. Monitor pulse as fluid status improves. Continue outpatient metoprolol and warfarin. # CKD, stage 3: Baseline creatinine ~1.6. Stable creatinine today. Recheck BMP tomorrow. Chronic conditions: # COPD: Advair. # Constipation: Miralax and Senna-S. # HLD: Statin. # Iron deficiency: Iron/vitamin C. # Osteoarthritis: Tylenol and diclofenac gel prn. Hospitalization details: # FEN: No IVF. Electrolytes normal; recheck tomorrow. Cardiac diet. # PPX: Therapeutic INR for DVT ppx. # Code status: FULL. # Emergency contact: Son/DPOA, who was updated at bedside on rounds. # Disposition: Continue on inpatient with plan to discharge back to [facility] in 1-2 days following further improvement in fluid status.
[2017-07-01] MEDS ORDERED: Warfarin 2.5 MG Tab PO SCH (18:00)
[2017-07-01] MEDS: atorvaSTATin 10 MG Tab PO SCH (20:45)
[2017-07-02] MEDS: Polyethylene Glycol 3350 Powder 17 GM Packet PO SCH (08:12)
[2017-07-02] MEDS: Multivitamins with Minerals/Iron/Folic Acid/Lycopene Tab PO SCH (08:13)
[2017-07-02] MEDS: Ascorbic Acid 500 MG Tab PO SCH (08:14)
[2017-07-02] MEDS: Metoprolol Tartrate 50 MG Tab PO SCH ×2 (08:15→20:56)
[2017-07-02] MEDS: Acetaminophen 650 MG Tab.ER PO SCH ×4 (08:17→20:51)
[2017-07-02] MEDS: Ferrous Sulfate 325 MG Tab PO SCH (08:17)
[2017-07-02] MEDS: Diltiazem 180 MG Cap.CD PO SCH (08:17)
[2017-07-02] MEDS: Calcium Citrate/Vitamin D3 315 MG-250 Unit Tab PO SCH (08:17)
[2017-07-02] MEDS: Fluticasone/Salmeterol 250-50 MCG Inhalation Powder 14/Diskus INH SCH ×2 (08:18→20:50)
[2017-07-02] MEDS: Diclofenac Sodium 1% Gel 100 GM Tube TOP SCH ×3 (08:19→20:52)
[2017-07-02] MEDS ORDERED: Furosemide 40 MG/4 ML VIAL IVPUSH SCH (09:00)
--- NOTE | 2017-07-02 17:21 | PCM.PN ---
- General Info Date of Service: 07/02/17 Subjective Update: Ms. Hardin reports feeling ongoing improvement this morning. Swelling in her legs and face has reduced. Redness on face is improved. Denies respiratory complaints. She denies any new complaints today, and specifically denies fever, chills, shortness of breath, chest pain, palpitations, decreased appetite, diarrhea, constipation, dysuria, hematuria, or urinary frequency. - Patient Data Vitals - Most Recent: Last Vital Signs Temp 37.0 C 07/02/17 15:00 Pulse 92 07/02/17 15:00 Resp 16 07/02/17 15:00 BP 135/64 07/02/17 15:00 Pulse Ox 96 07/02/17 15:00 Weight - Most Recent: 80.921 kg I&O - Last 24 Hours: Intake & Output 07/02/17 07/02/17 07/02/17 06:59 14:59 22:59 Intake Total 50 230 Output Total 250 Balance -200 230 Lab Results Last 24 Hours: Laboratory Results - last 24 hr 07/02/17 Range/Units 07:41 Sodium 141 (136-145) mmol/L Potassium 3.8 (3.3-5.3) mmol/L Chloride 104 (98-115) mmol/L Carbon Dioxide 25.8 (21.0-32.0) mmol/L BUN 40 H (6-25) mg/dL Creatinine 1.62 H (0.51-1.17) mg/dL Est Cr Clr Drug Dosing 21.38 mL/min Estimated GFR (MDRD) 30 mL/min Glucose 105 (70-110) mg/dL Calcium 8.5 L (8.7-10.3) mg/dL [place] Results Last 24 Hours: Microbiology 06/30/17 15:55 Urine Culture - Final Urine, Carvajal Cath (Indwelling) MIXED ROCIO DAY 2 Med Orders - Current: Current Medications Acetaminophen (Tylenol Arthritis Pain) 650 mg PO BEDTIME [facility] Last Admin: 07/01/17 20:44 Dose: 650 mg Acetaminophen (Tylenol Arthritis Pain) 650 mg PO TID@08,11,19 [facility] Last Admin: 07/02/17 10:57 Dose: 650 mg Ascorbic Acid (Vitamin C) 500 mg PO DAILY [facility] Last Admin: 07/02/17 08:14 Dose: 500 mg Atorvastatin Calcium (Lipitor) 20 mg PO BEDTIME [facility] Last Admin: 07/01/17 20:45 Dose: 20 mg Calcium Citrate (Calcium Citrate + D) 1 tab PO DAILY [facility] Last Admin: 07/02/17 08:17 Dose: 1 tab Diclofenac Sodium (Voltaren 1% Gel) 2 gm TOP TID [facility] Last Admin: 07/02/17 15:31 Dose: Not Given Diltiazem HCl (Cardizem Cd) 180 mg PO DAILY [facility] Last Admin: 07/02/17 08:17 Dose: 180 mg Ferrous Sulfate (Ferrous Sulfate) 325 mg PO DAILY [facility] Last Admin: 07/02/17 08:17 Dose: 325 mg Furosemide (Lasix) 40 mg PO DAILY [facility] Metoprolol Tartrate (Lopressor) 100 mg PO BID [facility] Last Admin: 07/02/17 08:15 Dose: 100 mg Multivitamins/Minerals (Centrum) 1 tab PO DAILY [facility] Last Admin: 07/02/17 08:13 Dose: 1 tab Nitroglycerin (Nitrostat) 0.4 mg SL Q5M PRN PRN Reason: Chest Pain Polyethylene Glycol (Miralax) 17 gm PO DAILY [facility] Last Admin: 07/02/17 08:12 Dose: 17 gm Fluticasone/Salmeterol (Advair Diskus 250-50) 1 puff INH BID [facility] Last Admin: 07/02/17 08:18 Dose: 1 puff Senna/Docusate Sodium (Senna Plus) 1 tab PO BID [facility] Last Admin: 07/02/17 08:13 Dose: 1 tab Warfarin Sodium (Coumadin) 2.5 mg PO TuThSa@1800 [facility] Last Admin: 07/01/17 18:15 Dose: 2.5 mg Warfarin Sodium (Coumadin) 3.75 mg PO SuMoWeFr@1800 [facility] Discontinued Medications Acetaminophen (Tylenol Arthritis Pain) 650 mg PO TID@08,11,19 PRN PRN Reason: Pain Acetaminophen (Tylenol Arthritis Pain) 650 mg PO DAILY PRN PRN Reason: Pain Diclofenac Sodium (Voltaren 1% Gel) gm TOP TID [facility] Furosemide (Lasix) 40 mg IVPUSH DAILY [facility] Last Admin: 07/01/17 08:18 Dose: 40 mg Furosemide (Lasix) 20 mg IVPUSH DAILY [facility] Last Admin: 07/02/17 08:18 Dose: 20 mg Non-Formulary Medication (Cranberry Extract [Cranberry]) 450 mg PO DAILY [facility] Warfarin Sodium (Coumadin) 2.5 mg PO ONETIME ONE Stop: 06/30/17 18:10 Last Admin: 06/30/17 18:38 Dose: 2.5 mg - Exam Physical Findings Comments:: GENERAL: Well-appearing elderly white female lying in hospital bed in no acute distress. HEENT: Normocephalic, atraumatic. Conjunctiva clear. Mucous membranes moist. NECK: Supple, no masses. CV: Irregularly irregular, no murmurs, rubs, or gallops. 2+ radial pulses. PULMONARY: Normal effort, clear to auscultation bilaterally, no wheezes, rales, or rhonchi. ABDOMEN: Positive bowel sounds, soft, nontender, nondistended. EXTREMITIES: 2+ edema to knees bilaterally. MUSCULOSKELETAL: Moves all extremities well. NEUROLOGICAL: No obvious deficits. DERMATOLOGIC: Mild redness of face on forehead and cheeks. PSYCHIATRIC: Alert, interactive, appropriate affect. - Problem List Review Problem List Initiated/Reviewed/Updated: Yes - My Orders Last 24 Hours: My Active Orders 07/01/17 18:00 Warfarin [Coumadin] 2.5 mg PO TuThSa@1800 07/02/17 18:00 Warfarin [Coumadin] 3.75 mg PO SuMoWeFr@1800 07/03/17 05:11 BASIC METABOLIC PANEL,BMP [CHEM] AM 07/03/17 09:00 Furosemide [Lasix] 40 mg PO DAILY - Assessment Assessment:: Ms. Hardin is an 82yoF with history notable for HFrEF, ischemic cardiomyopathy, pulmonary hypertension, atrial fibrillation, and CKD3, who resides at [facility] who presented to the [facility] on 06/30/17 with worsening edema found to have acute heart failure for which she was admitted. # Acute on chronic HFrEF: 12/26/16 echo with EF 35%. On furosemide 40mg po daily as outpatient. Presentation with worsening edema and BNP 2270. Furosemide 40mg IV daily initiated. Since admission, has diuresed 12L and lost 1.9kg, while remaining hemodynamically stable with stable renal function and normal electrolytes. Will de-escalate diuretic regimen tomorrow to outpatient regimen. Continue monitoring I/O (but discontinue Carvajal catheter), daily weight, and VS. Recheck BMP tomorrow. Consider addition of ACEI as outpatient. # Ischemic cardiomyopathy/HTN/pulmonary HTN: Stable without s/sx of ischemia and with reasonable BP control. Continue outpatient metoprolol and diltiazem. # Atrial fibrillation: Pulse recorded this morning in 120s was before medications and was in the 80s-90s on my exam. INR therapeutic. Continue outpatient metoprolol and warfarin. # CKD, stage 3: Baseline creatinine ~1.6. Stable creatinine today. Recheck BMP tomorrow. # Asymptomatic bacteruria: No urinary sx, so therefore no indication for antibiotic treatment. Culture with mixed rocio. Chronic conditions: # COPD: Advair. # Constipation: Miralax and Senna-S. # HLD: Statin. # Iron deficiency: Iron/vitamin C. # Osteoarthritis: Tylenol and diclofenac gel prn. Hospitalization details: # FEN: No IVF. Electrolytes normal; recheck tomorrow. Cardiac diet. # PPX: Therapeutic INR for DVT ppx. # Code status: FULL. # Emergency contact: Son/DPOA, who was updated at bedside on rounds. # Disposition: Continue on inpatient with plan to discharge back to [facility] tomorrow pending stabilization of fluid status.
[2017-07-02] MEDS ORDERED: Warfarin 2.5 MG Tab PO SCH (18:00)
[2017-07-02] MEDS: atorvaSTATin 10 MG Tab PO SCH (20:51)
[2017-07-03 06:36] VITALS: BP 123/75
[2017-07-03] MEDS: Acetaminophen 650 MG Tab.ER PO SCH (08:59)
[2017-07-03] MEDS: Calcium Citrate/Vitamin D3 315 MG-250 Unit Tab PO SCH (09:00)
[2017-07-03] MEDS ORDERED: Furosemide 40 MG Tab PO SCH (09:00)
[2017-07-03] MEDS: Diltiazem 180 MG Cap.CD PO SCH (09:01)
[2017-07-03] MEDS: Multivitamins with Minerals/Iron/Folic Acid/Lycopene Tab PO SCH (09:02)
[2017-07-03] MEDS: Ferrous Sulfate 325 MG Tab PO SCH (09:02)
[2017-07-03] MEDS: Metoprolol Tartrate 50 MG Tab PO SCH (09:03)
[2017-07-03] MEDS: Ascorbic Acid 500 MG Tab PO SCH (09:04)
[2017-07-03] MEDS: Polyethylene Glycol 3350 Powder 17 GM Packet PO SCH (09:05)
[2017-07-03] MEDS: Fluticasone/Salmeterol 250-50 MCG Inhalation Powder 14/Diskus INH SCH (09:12)
--- NOTE | 2017-07-03 09:28 | PCM.DCSUM1 ---
Discharge Summary - Discharge Data Discharge Date: 07/03/17 Discharge Disposition: DC/Tfer to SNF 03 Condition: Good - Discharge Plan Home Medications: Home Meds Fluticasone/Salmeterol [Advair 250-50] 1 puff INH BID 05/31/14 [History] atorvaSTATin [Lipitor] 20 mg PO BEDTIME 05/31/14 [History] Cranberry Extract [Cranberry] 450 mg PO DAILY 08/29/16 [History] Ferrous Sulfate 325 mg PO DAILY 08/29/16 [History] Multivitamins w-Iron/Ca/FA/Min [Thera M Plus] 1 tab PO DAILY 08/29/16 [History] Nitroglycerin [Nitrostat] 0.4 mg SL Q5M PRN 08/29/16 [History] Ascorbic Acid [Vitamin C] 500 mg PO DAILY 09/29/16 [History] Warfarin [Coumadin] 2.5 mg PO TUTHSA 09/29/16 [History] Warfarin [Coumadin] 3.75 mg PO SUMOWEFR 09/29/16 [History] Acetaminophen [Tylenol Arthritis] 650 mg PO BEDTIME 12/18/16 [History] Metoprolol Tartrate [Lopressor] 100 mg PO BID 12/18/16 [History] Polyethylene Glycol 3350 [MiraLAX] 17 gm PO DAILY 12/18/16 [History] Acetaminophen [Acetaminophen ER] 650 mg PO TID@,, PRN 12/19/16 [History] Calcium Carbonate/Vitamin D3 [Calcium 600 + Vit D 400 Softgl] 1 cap PO DAILY [History] Diltiazem [Cardizem CD] 180 mg PO DAILY #60 cap.cd 12/22/16 [Rx] Diclofenac Sodium [Voltaren] 1 applic TOP TID 06/30/17 [History] Furosemide 40 mg PO DAILY 06/30/17 [History] Sennosides/Docusate Sodium [Senna Plus Tablet] 1 tab PO BID 06/30/17 [History] Bengay With Trolamine 1 applic TOP TID 07/03/17 [History] Referrals: Brigid Reyes PA-C [Physician Sales [employer] Marketing Administrator] - (next correction rounds) - Patient Data Vitals - Most Recent: Last Vital Signs Temp 37.5 C 07/03/17 06:31 Pulse 107 H 07/03/17 09:03 Resp 16 07/03/17 06:31 BP 123/75 07/03/17 09:03 Pulse Ox 94 L 07/03/17 06:31 Weight - Most Recent: 80.467 kg I&O - Last 24 hours: Intake & Output 07/02/17 07/03/17 07/03/17 22:59 06:59 14:59 Intake Total 240 50 Balance 240 50 Lab Results - Last 24 hrs: Laboratory Results - last 24 hr 07/03/17 Range/Units 08:00 Sodium 146 H (136-145) mmol/L Potassium 4.2 (3.3-5.3) mmol/L Chloride 110 (98-115) mmol/L Carbon Dioxide 25.2 (21.0-32.0) mmol/L BUN 44 H (6-25) mg/dL Creatinine 1.56 H (0.51-1.17) mg/dL Est Cr Clr Drug Dosing 22.21 mL/min Estimated GFR (MDRD) 32 mL/min Glucose 114 H (70-110) mg/dL Calcium 8.5 L (8.7-10.3) mg/dL [facility] Results - Last 24 hrs: Microbiology 06/30/17 15:55 Urine Culture - Final Urine, Carvajal Cath (Indwelling) MIXED BALA DAY 2 Med Orders - Current: Current Medications Acetaminophen (Tylenol Arthritis Pain) 650 mg PO BEDTIME [facility] Last Admin: 07/02/17 20:51 Dose: 650 mg Acetaminophen (Tylenol Arthritis Pain) 650 mg PO TID@08,11,19 [facility] Last Admin: 07/03/17 08:59 Dose: 650 mg Ascorbic Acid (Vitamin C) 500 mg PO DAILY [facility] Last Admin: 07/03/17 09:04 Dose: 500 mg Atorvastatin Calcium (Lipitor) 20 mg PO BEDTIME [facility] Last Admin: 07/02/17 20:51 Dose: 20 mg Calcium Citrate (Calcium Citrate + D) 1 tab PO DAILY [facility] Last Admin: 07/03/17 09:00 Dose: 1 tab Diclofenac Sodium (Voltaren 1% Gel) 2 gm TOP TID [facility] Last Admin: 07/02/17 20:52 Dose: 1 applic Diltiazem HCl (Cardizem Cd) 180 mg PO DAILY [facility] Last Admin: 07/03/17 09:01 Dose: 180 mg Ferrous Sulfate (Ferrous Sulfate) 325 mg PO DAILY [facility] Last Admin: 07/03/17 09:02 Dose: 325 mg Furosemide (Lasix) 40 mg PO DAILY [facility] Last Admin: 07/03/17 09:02 Dose: 40 mg Metoprolol Tartrate (Lopressor) 100 mg PO BID [facility] Last Admin: 07/03/17 09:03 Dose: 100 mg Multivitamins/Minerals (Centrum) 1 tab PO DAILY [facility] Last Admin: 07/03/17 09:02 Dose: 1 tab Nitroglycerin (Nitrostat) 0.4 mg SL Q5M PRN PRN Reason: Chest Pain Polyethylene Glycol (Miralax) 17 gm PO DAILY [facility] Last Admin: 07/03/17 09:05 Dose: 17 gm Fluticasone/Salmeterol (Advair Diskus 250-50) 1 puff INH BID [facility] Last Admin: 07/03/17 09:12 Dose: 1 puff Senna/Docusate Sodium (Senna Plus) 1 tab PO BID [facility] Last Admin: 07/03/17 09:04 Dose: 1 tab Warfarin Sodium (Coumadin) 2.5 mg PO TuThSa@1800 [facility] Last Admin: 07/01/17 18:15 Dose: 2.5 mg Warfarin Sodium (Coumadin) 3.75 mg PO SuMoWeFr@1800 [facility] Last Admin: 07/02/17 18:48 Dose: 3.75 mg Discontinued Medications Acetaminophen (Tylenol Arthritis Pain) 650 mg PO TID@08,11,19 PRN PRN Reason: Pain Acetaminophen (Tylenol Arthritis Pain) 650 mg PO DAILY PRN PRN Reason: Pain Diclofenac Sodium (Voltaren 1% Gel) gm TOP TID [facility] Furosemide (Lasix) 40 mg IVPUSH DAILY [facility] Last Admin: 07/01/17 08:18 Dose: 40 mg Furosemide (Lasix) 20 mg IVPUSH DAILY [facility] Last Admin: 07/02/17 08:18 Dose: 20 mg Non-Formulary Medication (Cranberry Extract [Cranberry]) 450 mg PO DAILY [facility] Warfarin Sodium (Coumadin) 2.5 mg PO ONETIME ONE Stop: 06/30/17 18:10 Last Admin: 06/30/17 18:38 Dose: 2.5 mg *Q Meaningful Use (DIS) - VTE *Q VTE Criteria *Q: - Stroke *Q Stroke Criteria *Q: - AMI *Q AMI Criteria *Q:
[2017-07-03] MEDS: Diclofenac Sodium 1% Gel 100 GM Tube TOP SCH (10:12)
== END 2017-07-03 11:40 | DRG 293 ==
LOC: KA.MS 17:00
PROVIDERS: ADMIT Nurse Practitioner Family; ATTEND Family Medicine
DX: I50.23 Acute on chronic systolic (congestive) heart failure (principal); R60.9 Edema, unspecified; J44.9 Chronic obstructive pulmonary disease, unspecified; I12.9 Hypertensive chronic kidney disease with stage 1 through stage 4 chronic kidney disease, or unspecified chronic kidney disease; N18.3 Chronic kidney disease, stage 3 (moderate); I48.91 Unspecified atrial fibrillation; I25.5 Ischemic cardiomyopathy; E78.00 Pure hypercholesterolemia, unspecified; Z79.01 Long term (current) use of anticoagulants; Z79.899 Other long term (current) drug therapy; M25.511 Pain in right shoulder
CPT/HCPCS: 36415; 36416; 51702; 80048; 80053; 81001; 85610; 87086; 94640-76; A9270-GY; J1940

== ENCOUNTER 2018-08-23 17:39 | Emergency (ER) | payer MEDICARE, MEDICAID ==
--- NOTE | 2018-08-23 18:28 | EDM.PDOC ---
ED HPI GENERAL MEDICAL PROBLEM - General Chief Complaint: General Stated Complaint: Fall Time Seen by Provider: 08/23/18 18:00 Source of Information: Reports: Patient, Family, Provider History Limitations: Reports: No Limitations - History of Present Illness INITIAL COMMENTS - FREE TEXT/NARRATIVE: 83 YO WF presents to ER from [place] after a fall yesterday. Pt was seen and evaluated yesterday by [employer] at [place]. Pt had complaints of right arm and right leg pain after fall and had xrays of right elbow and right knee which were found to be normal. No outword signs of head trauma. GCS-15. Pt alert and oriented x3. Pt also had labs performed yesterday including INR which were found to be within normal limits. INR-1.4 per Janee PYLE. Pt has had more difficulty with ambulation today and has had 2 episodes of emesis prompting ER evaluation for possible head injury. [place] reports no LOC. Onset Date: 08/22/18 Duration: Day(s): (2) Location: Reports: Head Improves with: Reports: None Worsens with: Reports: None Associated Symptoms: Reports: Nausea/Vomiting Right Shoulder Pain Score (Numeric/FACES): 5 - Related Data Allergies Allergy/AdvReac Type Severity Reaction Status Date / Time No Known Drug Allergies Allergy none Verified 04/11/18 15:41 Home Meds: Home Meds Fluticasone/Salmeterol [Advair 250-50] 1 puff INH BID 05/31/14 [History] atorvaSTATin [Lipitor] 20 mg PO BEDTIME 05/31/14 [History] Cranberry Extract [Cranberry] 450 mg PO DAILY 08/29/16 [History] Ferrous Sulfate 325 mg PO DAILY 08/29/16 [History] Nitroglycerin [Nitrostat] 0.4 mg SL Q5M PRN 08/29/16 [History] Ascorbic Acid [Vitamin C] 500 mg PO DAILY 09/29/16 [History] Warfarin [Coumadin] 2.5 mg PO SUTUWETHFRSA@1800 09/29/16 [History] Acetaminophen [Tylenol Arthritis] 650 mg PO BID 12/18/16 [History] Metoprolol Tartrate [Lopressor] 100 mg PO BID 12/18/16 [History] Polyethylene Glycol 3350 [MiraLAX] 17 gm PO DAILY 12/18/16 [History] Calcium Carbonate/Vitamin D3 [Calcium 600 + Vit D 400 Softgl] 1 cap PO DAILY [History] Diltiazem [Cardizem CD] 180 mg PO DAILY #60 cap.cd 12/22/16 [Rx] Furosemide 40 mg PO DAILY 06/30/17 [History] Sennosides/Docusate Sodium [Senna Plus Tablet] 1 tab PO BID 06/30/17 [History] Acetaminophen [Tylenol Arthritis] 650 mg PO DAILY PRN 07/03/17 [History] Multivitamins/Min/Ca/FA/Iron [Thera-M] 1 tab PO DAILY 07/03/17 [History] Chlorophyllin/Thymol [Chlorophyll] 1 tab PO DAILY 04/11/18 [History] Lisinopril 2.5 mg PO DAILY 04/11/18 [History] Warfarin [Coumadin] 1.25 mg PO MO@1800 04/11/18 [History] Sertraline [Zoloft] 50 mg PO DAILY 08/23/18 [History] traMADol [Ultram] 50 mg PO Q4H PRN #15 tab 08/23/18 [Rx] Past Medical History HEENT History: Reports: Impaired Vision Cardiovascular History: Reports: Afib, Heart Failure, High Cholesterol, Hypertension, [place], Other (See Below) Other Cardiovascular History: ischemic cardiomyopathy Respiratory History: Reports: COPD Gastrointestinal History: Reports: Hemorrhoids Genitourinary History: Reports: Urinary Incontinence, Other (See Below) Other Genitourinary History: CKD Stage III 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: Musculoskeletal History: Reports: Arthritis Neurological History: Reports: TIA Psychiatric History: Reports: Dementia Hematologic History: Reports: Iron Deficiency, Other (See Below) Other Hematologic History: pt takes iron tablet daily - Past Surgical History Head Surgeries/Procedures: Reports: None Cardiovascular Surgical History: Reports: Carotid Stents Respiratory Surgical History: Reports: None Social & Family History - Family History Family Medical History: Noncontributory - Tobacco Use Smoking Status *Q: Unknown Ever Smoked - Caffeine Use Caffeine Use: Reports: Coffee ED ROS GENERAL - Review of Systems Review Of Systems: See Below Constitutional: Reports: No Symptoms HEENT: Reports: No Symptoms Respiratory: Reports: No Symptoms Cardiovascular: Reports: No Symptoms Endocrine: Reports: No Symptoms GI/Abdominal: Reports: No Symptoms : Reports: No Symptoms Musculoskeletal: Reports: Arm Pain, Leg Pain Skin: Reports: Bruising Neurological: Reports: Difficulty Walking Psychiatric: Reports: No Symptoms Hematologic/Lymphatic: Reports: No Symptoms Immunologic: Reports: No Symptoms ED EXAM, GENERAL - Physical Exam Exam: See Below Exam Limited By: No Limitations General Appearance: Alert, WD/WN, No Apparent Distress Eye Exam: Bilateral Eye: EOMI, PERRL Ears: Normal External Exam, Normal Canal, Hearing Grossly Normal, Normal TMs Nose: Normal Inspection, Normal Mucosa, No Blood Throat/Mouth: Normal Inspection, Normal Lips, Normal Teeth, Normal Gums, Normal Oropharynx, Normal Voice, No Airway Compromise Head: Atraumatic, Normocephalic Neck: Normal Inspection, Supple, Non-Tender, Full Range of Motion Respiratory/Chest: No Respiratory Distress, Lungs Clear, Normal Breath Sounds, No Accessory Muscle Use, Chest Non-Tender Cardiovascular: Normal Peripheral Pulses, Regular Rate, Rhythm, No Edema, No Gallop, No JVD, No Murmur, No Rub GI/Abdominal: Normal Bowel Sounds, Soft, Non-Tender, No Organomegaly, No Distention, No Abnormal Bruit, No Mass Back Exam: Normal Inspection, Full Range of Motion, NT Extremities: Other (right shoulder pain) Neurological: Alert, CN II-XII Intact, Normal Cognition, No Motor/Sensory Deficits, Disoriented Psychiatric: Normal Affect, Normal Mood Skin Exam: Warm, Dry, Intact, No Rash, Ecchymosis Lymphatic: No Adenopathy Course - Vital Signs Last Recorded V/S: Last Vital Signs Temp 36.4 C 08/23/18 17:51 Pulse 115 H 08/23/18 19:22 Resp 20 08/23/18 19:22 BP 141/93 H 08/23/18 19:22 Pulse Ox 95 08/23/18 19:22 - Orders/Labs/Meds Orders: Active Orders 24 hr Category Date Time Status Ang Neck [CT] Stat Exams 08/23/18 17:49 Stop Req Cervical Spine wo Cont [CT] Stat Exams 08/23/18 17:56 Ordered - Radiology Interpretation Free Text/Narrative:: CT head-NAD CT cervical- NAD right ankle- DJD; NAD right shoulder- NAD Departure - Departure Time of Disposition: 20:26 Disposition: DC[facility] Condition: Fair Clinical Impression: Cervical strain Qualifiers: Encounter type: initial encounter Qualified Code(s): S16.1XXA - Strain of muscle, fascia and tendon at neck level, initial encounter Osteoarthritis Qualifiers: Osteoarthritis type: unspecified Laterality: right Shoulder pain, right Qualifiers: Chronicity: acute Qualified Code(s): M25.511 - Pain in right shoulder Ankle pain, right Qualifiers: Chronicity: acute Qualified Code(s): M25.571 - Pain in right ankle and joints of right foot - Discharge Information Prescriptions: traMADol [Ultram] 50 mg PO Q4H PRN #15 tab PRN Reason: Pain Instructions: Shoulder Pain, Head Injury, Adult, Cervical Sprain, Ankle Pain Referrals: Jana Perry MD [Primary Care Provider] - Forms: ED Department Discharge Additional Instructions: 1. Discharge home 2. Ultram 50mg PO Q4-6 PRN pain 3. PT to evaluate and treat 4. follow up in clinic for recheck 5. return to ER for worsening symptoms - My Orders Last 24 Hours: My Active Orders 08/23/18 17:49 Ang Neck [CT] Stat 08/23/18 17:56 Cervical Spine wo Cont [CT] Stat - Assessment/Plan Last 24 Hours: My Active Orders 08/23/18 17:49 Ang Neck [CT] Stat 08/23/18 17:56 Cervical Spine wo Cont [CT] Stat Assessment:: 1. Fall 2. right shoulder pain 3. right ankle pain 4. cervical strain 5. severe DJD Plan: 1. Discharge home 2. Ultram 50mg PO Q4-6 PRN pain 3. PT to evaluate and treat 4. follow up in clinic for recheck 5. return to ER for worsening symptoms
--- NOTE | 2018-08-23 20:20 | CR ---
[id number] RAD/RAD Shoulder Right 2V Min Exam: RAD Shoulder Right 2V Min Indication:FALL. Comparison: No prior imaging for comparison. Discussion: No evidence of fracture or dislocation. Acromioclavicular and glenohumeral osteoarthritis. Mineralized osteochondral body in the axillary recess. Impression: No acute findings. John Candelario MD 08/23/182018 Thank you for allowing us to participate in the care of your patient.
--- NOTE | 2018-08-23 20:21 | CR ---
[id number] RAD/RAD Ankle Right 3V Min Exam: RAD Ankle Right 3V Min Indication:PAIN Comparison: No prior imaging for comparison. Discussion: Advanced hindfoot osteoarthritis. Diffuse bone demineralization. No radiographically evident fracture or dislocation. Vascular calcifications in the soft tissues. Impression: Findings in the foot. John Candelario MD 08/23/182019 Thank you for allowing us to participate in the care of your patient.
--- NOTE | 2018-08-23 20:23 | CT ---
[id number] CT/CT Head WO IV EXAM: CT Head WO IV CLINICAL DATA: FALL. COMPARISON STUDY: None FINDINGS: No intracranial hemorrhage, extra-axial fluid collection, mass, or acute ischemia. No hydrocephalus. 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 Paranasal sinuses and mastoid air cells are clear. IMPRESSION: No acute intracranial findings. John Candelario MD 08/23/182021 Thank you for allowing us to participate in the care of your patient.
--- NOTE | 2018-08-23 20:25 | CT ---
[id number] CT/CT Cervical Spine WO IV EXAM: CT Cervical Spine WO IV INDICATION: FALL. COMPARISON: None. DISCUSSION: No fracture or compression deformity. Vertebral bodies remain in normal alignment. Reversal of the normal cervical lordosis with advanced changes of spondylosis diffusely throughout the cervical spine. No prevertebral soft tissue edema. Lung apices are clear. IMPRESSION: No acute findings in the cervical spine. John Candelario MD 08/23/182023 Thank you for allowing us to participate in the care of your patient.
[2018-08-23 21:24] VITALS: BP 118/72
== END 2018-08-23 21:00 ==
LOC: KA.ED 17:39
DX: S16.1XXA Strain of muscle, fascia and tendon at neck level, initial encounter (principal); M25.511 Pain in right shoulder; M25.571 Pain in right ankle and joints of right foot; M19.90 Unspecified osteoarthritis, unspecified site; I13.0 Hypertensive heart and chronic kidney disease with heart failure and stage 1 through stage 4 chronic kidney disease, or unspecified chronic kidney disease; I50.9 Heart failure, unspecified; N18.3 Chronic kidney disease, stage 3 (moderate); I48.91 Unspecified atrial fibrillation; J44.9 Chronic obstructive pulmonary disease, unspecified; Z79.899 Other long term (current) drug therapy; Z79.01 Long term (current) use of anticoagulants; W19.XXXA Unspecified fall, initial encounter
CPT/HCPCS: 70450; 72125; 73030-RT; 73610-RT; 99284-25

== ENCOUNTER 2018-09-21 11:35 | Inpatient (IN) | payer MEDICARE, MEDICAID ==
[2018-09-21] MEDS: Sodium Chloride 0.9% 1,000 ML IV SCH ×2 (12:25→22:04)
[2018-09-21] MEDS ORDERED: Pantoprazole 40 MG Vial IVPUSH SCH (13:45)
[2018-09-21] MEDS ORDERED: Acetaminophen 650 MG Supp RECTAL PRN (16:25)
[2018-09-21] MEDS ORDERED: Morphine 2 MG/ML Syringe IVPUSH ONE (16:49)
[2018-09-21] MEDS: Fluticasone/Salmeterol 250-50 MCG Inhalation Powder 14/Diskus INH SCH (20:34)
[2018-09-22] MEDS: Pantoprazole 40 MG Vial IVPUSH SCH ×2 (06:46→17:12)
[2018-09-22] MEDS ORDERED: Nitroglycerin 0.4 MG Tab.SL SL PRN (07:40)
[2018-09-22] MEDS ORDERED: Atropine 0.1 MG/ML 10 ML Syringe IVPUSH PRN (07:40)
[2018-09-22] MEDS ORDERED: EPINEPHrine 1:10,000 1 MG/10 ML Syringe IVPUSH PRN (07:40)
[2018-09-22] MEDS ORDERED: Lidocaine 2% 100 MG/5 ML Syringe IVPUSH PRN (07:40)
[2018-09-22] MEDS ORDERED: Diltiazem 25 MG/5 ML SDV IVPUSH ONE ×3 (07:57→08:30)
[2018-09-22] MEDS ORDERED: Nitroglycerin 0.4 MG Tab.SL SL ONE (08:25)
[2018-09-22 08:32] LABS: ANION GAP 22.2 mmol/L (5-15)
[2018-09-22] MEDS ORDERED: Sodium Chloride 0.9% 300 ML IV ONE ×2 (08:52→21:08)
[2018-09-22] MEDS ORDERED: Diltiazem 125 MG in Sodium Chloride 0.9% 100 ML IV SCH (09:15)
[2018-09-22] MEDS: Fluticasone/Salmeterol 250-50 MCG Inhalation Powder 14/Diskus INH SCH ×2 (09:32→20:03)
--- NOTE | 2018-09-22 10:35 | PCM.PN ---
- General Info Date of Service: 09/22/18 Subjective Update: Patient with altered mental status not able to fully communicate this morning - Patient Data Vitals - Most Recent: Last Vital Signs Temp 98.7 F 09/22/18 06:53 Pulse 146 H 09/22/18 06:53 Resp 36 H 09/22/18 06:53 BP 125/51 L 09/22/18 08:38 Pulse Ox 90 L 09/22/18 06:53 Weight - Most Recent: 158 lb 3.2 oz I&O - Last 24 Hours: Intake & Output 09/21/18 09/22/18 09/22/18 22:59 06:59 14:59 Intake Total 711 940 Balance 711 940 Lab Results Last 24 Hours: Laboratory Results - last 24 hr 09/21/18 09/21/18 09/22/18 Range/Units 12:05 16:45 07:14 WBC 7.52 (5.00-10.00) 10^3/uL RBC 4.96 (3.80-5.50) 10^6/uL Hgb 13.8 D (12.0-16.0) g/dL Hct 42.8 (37.0-47.0) % MCV 86.3 D (82.0-92.0) fL MCH 27.8 (27.0-31.0) pg MCHC 32.2 (32.0-36.0) g/dL RDW 15.4 H (11.5-14.5) % Plt Count 264 (150-400) 10^3/uL MPV 11.0 H (7.4-10.4) fL Immature Gran % (Auto) 0.3 (0.0-5.0) % Neut % (Auto) 79.3 H (50.0-70.0) % Lymph % (Auto) 10.5 L (20.0-40.0) % [place] % (Auto) 8.4 H (2.0-8.0) % Eos % (Auto) 0.8 L (1.0-3.0) % Baso % (Auto) 0.7 (0.0-1.0) % Immature Gran # (Auto) 0.02 (0.00-0.50) 10^3/uL Neut # (Auto) 5.97 (2.50-7.00) 10^3/uL Lymph # (Auto) 0.79 L (1.00-4.00) 10^3/uL [place] # (Auto) 0.63 (0.10-0.80) 10^3/uL Eos # (Auto) 0.06 L (0.10-0.30) 10^3/uL Baso # (Auto) 0.05 (0.00-0.10) 10^3/uL Reactive Lymphocytes Ovalocytes PT 24.8 H (8.9-11.4) SEC INR 2.5 H (0.9-1.1) Sodium 144 (136-145) mmol/L Potassium 4.3 (3.3-5.3) mmol/L Chloride 107 (98-115) mmol/L Carbon Dioxide 19.1 L (21.0-32.0) mmol/L Anion Gap 22.2 H (5-15) mmol/L BUN 33 H (6-25) mg/dL Creatinine 1.39 H (0.51-1.17) mg/dL Est Cr Clr Drug Dosing 26.63 mL/min Estimated GFR (MDRD) 36 mL/min Glucose 130 H (75 - 99) mg/dL Calcium 8.1 L (8.7-10.3) mg/dL Total Bilirubin 0.4 (0.2-1.0) mg/dL AST 21 (15-37) U/L ALT 15 (12-78) U/L Alkaline Phosphatase 87 (46-116) IU/L Troponin I 0.06 (0.00-0.070) ng/mL Total Protein 7.2 (6.4-8.2) g/dL Albumin 2.36 L (3.00-4.80) g/dL 09/22/18 09/22/18 Range/Units 07:14 07:14 WBC 6.83 (5.00-10.00) 10^3/uL RBC 4.38 (3.80-5.50) 10^6/uL Hgb 12.5 (12.0-16.0) g/dL Hct 38.2 (37.0-47.0) % MCV 87.2 (82.0-92.0) fL MCH 28.5 (27.0-31.0) pg MCHC 32.7 (32.0-36.0) g/dL RDW 15.5 H (11.5-14.5) % Plt Count 232 (150-400) 10^3/uL MPV 10.9 H (7.4-10.4) fL Immature Gran % (Auto) 0.1 (0.0-5.0) % Neut % (Auto) 81.0 H (50.0-70.0) % Lymph % (Auto) 8.5 L (20.0-40.0) % [place] % (Auto) 10.0 H (2.0-8.0) % Eos % (Auto) 0.0 L (1.0-3.0) % Baso % (Auto) 0.4 (0.0-1.0) % Immature Gran # (Auto) 0.01 (0.00-0.50) 10^3/uL Neut # (Auto) 5.53 (2.50-7.00) 10^3/uL Lymph # (Auto) 0.58 L (1.00-4.00) 10^3/uL [place] # (Auto) 0.68 (0.10-0.80) 10^3/uL Eos # (Auto) 0.00 L (0.10-0.30) 10^3/uL Baso # (Auto) 0.03 (0.00-0.10) 10^3/uL Reactive Lymphocytes Rare Ovalocytes 1+ slight PT 28.5 H (8.9-11.4) SEC INR 2.9 H (0.9-1.1) Sodium (136-145) mmol/L Potassium (3.3-5.3) mmol/L Chloride (98-115) mmol/L Carbon Dioxide (21.0-32.0) mmol/L Anion Gap (5-15) mmol/L BUN (6-25) mg/dL Creatinine (0.51-1.17) mg/dL Est Cr Clr Drug Dosing mL/min Estimated GFR (MDRD) mL/min Glucose (75 - 99) mg/dL Calcium (8.7-10.3) mg/dL Total Bilirubin (0.2-1.0) mg/dL AST (15-37) U/L ALT (12-78) U/L Alkaline Phosphatase (46-116) IU/L Troponin I (0.00-0.070) ng/mL Total Protein (6.4-8.2) g/dL Albumin (3.00-4.80) g/dL [place] Results Last 24 Hours: Microbiology 09/21/18 15:15 Gastric Occult Blood - Final Gastric Fluid NEGATIVE OCCULT BLOOD REFERENCE RANGE: NEGATIVE 09/21/18 15:15 Stool Occult Blood (MORRO) - Final Stool / Feces NEGATIVE OCCULT BLOOD REFERENCE RANGE: NEGATIVE Med Orders - Current: Current Medications Acetaminophen (Tylenol) 650 mg RECTAL Q4H PRN PRN Reason: PAIN, FEVER Atropine Sulfate (Atropine 0.1 Mg/Ml) 0 mg IVPUSH ASDIRECTED PRN PRN Reason: Heart Epinephrine HCl (Epinephrine 1:10,000) 1 mg IVPUSH ASDIRECTED PRN PRN Reason: Heart Sodium Chloride (Normal Saline) 1,000 mls @ 70 mls/hr IV ASDIRECTED [facility] Diltiazem HCl 125 mg/ Sodium (Chloride) 125 mls @ 5 mls/hr IV TITRATE [facility]; Protocol Last Admin: 09/22/18 09:37 Dose: 5 mg/hr, 5 mls/hr Lidocaine HCl (Xylocaine 2%) 0 mg IVPUSH ASDIRECTED PRN PRN Reason: Heart Nitroglycerin (Nitrostat) 0.4 mg SL ASDIRECTED PRN PRN Reason: Heart Pantoprazole Sodium (Protonix Iv) 40 mg IVPUSH Q12H [facility] Last Admin: 09/22/18 06:46 Dose: 40 mg Fluticasone/Salmeterol (Advair Diskus 250-50) 1 puff INH BID [facility] Last Admin: 09/22/18 09:32 Dose: 1 puff Discontinued Medications Diltiazem HCl (Diltiazem) 18 mg IVPUSH ONETIME ONE Stop: 09/22/18 08:21 Last Admin: 09/22/18 08:11 Dose: 18 mg Diltiazem HCl (Diltiazem) 25 mg IVPUSH ONETIME ONE Stop: 09/22/18 08:31 Last Admin: 09/22/18 08:45 Dose: 25 mg Sodium Chloride (Normal Saline) 1,000 mls @ 100 mls/hr IV ASDIRECTED [facility] Last Admin: 09/21/18 22:04 Dose: 100 mls/hr Sodium Chloride (Normal Saline) 300 mls @ 999 mls/hr IV .BOLUS ONE Stop: 09/22/18 09:10 Last Admin: 09/22/18 09:02 Dose: 999 mls/hr Morphine Sulfate (Morphine) 2 mg IVPUSH ONETIME ONE Stop: 09/21/18 16:50 Last Admin: 09/21/18 17:36 Dose: 2 mg Nitroglycerin (Nitrostat) 0.4 mg SL ONETIME ONE Stop: 09/22/18 08:26 Last Admin: 09/22/18 08:38 Dose: 0.4 mg Pantoprazole Sodium (Protonix Iv) 40 mg IVPUSH Q12H [facility] Last Admin: 09/21/18 15:42 Dose: 40 mg - Exam Quality Assessment: Supplemental Oxygen, DVT Prophylaxis General: Alert, Severe Distress. No: Oriented Neck: No JVD Lungs: No: Normal Respiratory Effort, Crackles, Rales Cardiovascular: No Murmurs GI/Abdominal Exam: Soft Extremities: No Pedal Edema Psy/Mental Status: Anxious, Agitated EKG INTERPRETATION EKG Date: 09/22/18 Rhythm: A-Fib ST-T: Depressed Comparison: Change From Previous EKG - Problem List Review Problem List Initiated/Reviewed/Updated: Yes - My Orders Last 24 Hours: My Active Orders 09/22/18 07:34 EKG 12 Lead [EK] Routine 09/22/18 07:35 EKG Documentation Completion [RC] ASDIRECTED 09/22/18 09:00 Sodium Chloride 0.9% [Normal Saline] 1,000 ml IV ASDIRECTED 09/22/18 09:15 Diltiazem 125 mg Sodium Chloride 0.9% [Normal Saline] 100 ml IV TITRATE 09/23/18 05:11 BASIC METABOLIC PANEL,BMP [CHEM] AM - Plan Plan:: Please use this as a critical care note today History 83-year-old patient resident of long-term care [facility] presented with lethargy, Abd pain, Nausea with black colored emesis after aching her morning medications. Reports from care home staff indicated patient having increase in her RR, occasional congested cough, VS at PA: 98.7F, HR 70 bpm, 32 RR, 102/77, 93% on room air. Hx of CHF and chronic atrial fibrillation on chronic anticoagulation. History of cardiac disease including coronary artery disease, ischemic cardiomyopathy, heart failure and atrial fibrillation. On warfarin along with diltiazem CD 180 mg daily & lopressor 100 mg BID. On iron Pertinent labs/diagnostic [facility] EKG, atrial fibrillation with RVR rate 110, QTc 425 CxR; Right lung clear. atelectasis or developing infiltrative process the left lung base Gastric occult initial stool occult for blood negative CBC 6.6 Neutrophilia BUN 29/creatinine 1.5 to INR 3.1 Update, notified this morning by nursing staff patient with tachycardia heart rate 170s, with increased restlessness, increase anxiousness. EKG changes with ST depression II/III/aVF Primary hospital problems -Atrial fibrillation with RVR, [id number], holding anticoagulation due to recent history of possible GI bleed, Hgb good -HFrEF: Systolic, holding lasix, gentle fluids today, below her dry weight -Ischemic heart disease -Rule out GI bleed, hemoglobin stable, twice a day PPI -Suspect pneumonia/infectious process as culprit for A. fib break-through, add broad-spectrum and Vancomycin. Chronic conditions -HTN: lisinopril 2.5 mg daily -COPD, advair 250-50 mcg BID. -HLD, on statin therapy, -CKD stage 3: GFR 38, creatinine 1.32 (08/30/18) -Pulmonary hypertension -Depression Plan --Diltiazem drip --Will hold off on nitrates at some evidence of right-sided heart failure, low- dose morphine 2/2 ischemic changes in leads II/AVF/III --Admit to ICU [facility] for now --Begin appropriate renal dose IV antibiotics --BC x 2 --BNP --Repeat troponin this afternoon --Procalcitonin --Telemetry --Monitor INR, may consider restarting anticoagulation some point due to risk profile if further workup demonstrates no GI bleeding Condition/disposition patient in serious condition, Discussion with Son, FCO Lebl[place], was notified of patient's condition and he is contemplating changing CODE STATUS at this time. Although patient is somewhat stabilized, likely high risk of [place], cardiac decompensation/failure necessitating likely transfer to higher echelon of care if he desires full resuscitation measures. Update, son/POA decided modified code. No CPR such as NO chest compressions, no intubation, however he would request 1x defibrillation only if shockable rhythm. No transfer to higher level of care.
[2018-09-22] MEDS ORDERED: Morphine 2 MG/ML Syringe IV PRN (11:22)
[2018-09-22] MEDS: Piperacillin/Tazobactam/Dext 3.375 GM in Premix Bag 1 BAG IV SCH ×3 (11:50→22:26)
[2018-09-22] MEDS: Sodium Chloride 0.9% 1,000 ML IV SCH (19:33)
[2018-09-22] MEDS ORDERED: Digoxin 125 MCG Tab PO ONE (22:00)
[2018-09-22] MEDS ORDERED: Metoprolol Tartrate 50 MG Tab PO ONE (23:15)
[2018-09-23] MEDS: Piperacillin/Tazobactam/Dext 3.375 GM in Premix Bag 1 BAG IV SCH ×4 (05:58→22:34)
[2018-09-23] MEDS ORDERED: Digoxin 125 MCG Tab PO ONE (06:00)
[2018-09-23] MEDS ORDERED: Digoxin 125 MCG Tab PO SCH (06:00)
[2018-09-23] MEDS: Pantoprazole 40 MG Vial IVPUSH SCH ×2 (06:31→17:33)
[2018-09-23] MEDS: Sodium Chloride 0.9% 1,000 ML IV SCH (07:58)
[2018-09-23 08:36] LABS: ANION GAP 17.6 mmol/L (5-15)
[2018-09-23] MEDS: Fluticasone/Salmeterol 250-50 MCG Inhalation Powder 14/Diskus INH SCH (09:10)
[2018-09-23] MEDS: Metoprolol Tartrate 50 MG Tab PO SCH ×2 (11:20→20:38)
[2018-09-23] MEDS ORDERED: Furosemide 40 MG/4 ML VIAL IVPUSH ONE (12:21)
--- NOTE | 2018-09-23 12:23 | PCM.PN ---
- General Info Date of Service: 09/23/18 Subjective Update: Patient with limited communicative skills at this time however improved. Unable to obtain complete ROS Functional Status: Reports: Pain Controlled, Urinating. Denies: Tolerating Diet , Ambulating, New Symptoms, Incentive Spirometry - Review of Systems General: Denies: Fever Pulmonary: Reports: Shortness of Breath, Cough. Denies: Wheezing - Patient Data Vitals - Most Recent: Last Vital Signs Temp 98.4 F 09/23/18 11:00 Pulse 124 H 09/23/18 11:20 Resp 21 H 09/23/18 11:00 BP 139/81 09/23/18 11:20 Pulse Ox 95 09/23/18 11:00 Weight - Most Recent: 164 lb I&O - Last 24 Hours: Intake & Output 09/22/18 09/23/18 09/23/18 22:59 06:59 14:59 Intake Total 736 669 Balance 736 669 Lab Results Last 24 Hours: Laboratory Results - last 24 hr 09/22/18 09/22/18 09/23/18 Range/Units 07:14 14:16 07:50 Sodium 149 H (136-145) mmol/L Potassium 3.9 (3.3-5.3) mmol/L Chloride 113 (98-115) mmol/L Carbon Dioxide 22.3 (21.0-32.0) mmol/L Anion Gap 17.6 H (5-15) mmol/L BUN 34 H (6-25) mg/dL Creatinine 1.41 H (0.51-1.17) mg/dL Est Cr Clr Drug Dosing 26.25 mL/min Estimated GFR (MDRD) 35 mL/min Glucose 99 (75 - 99) mg/dL Calcium 7.7 L (8.7-10.3) mg/dL Troponin I 0.10 H* 0.07 (0.00-0.070) ng/mL B-Natriuretic Peptide 3010 H (0-100) pg/mL [place] Results Last 24 Hours: Microbiology 09/22/18 11:15 Aerobic Blood Culture - Preliminary Blood - Venous NO GROWTH AFTER 1 DAY Anaerobic Blood Culture - Preliminary NO GROWTH AFTER 1 DAY 09/22/18 11:30 Aerobic Blood Culture - Preliminary Blood - Venous - Lab Draw NO GROWTH AFTER 1 DAY Anaerobic Blood Culture - Preliminary NO GROWTH AFTER 1 DAY Med Orders - Current: Current Medications Acetaminophen (Tylenol) 650 mg RECTAL Q4H PRN PRN Reason: PAIN, FEVER Atropine Sulfate (Atropine 0.1 Mg/Ml) 0 mg IVPUSH ASDIRECTED PRN PRN Reason: Heart Diltiazem HCl (Cardizem Cd) 180 mg PO QAM [facility] Epinephrine HCl (Epinephrine 1:10,000) 1 mg IVPUSH ASDIRECTED PRN PRN Reason: Heart Sodium Chloride (Normal Saline) 1,000 mls @ 70 mls/hr IV ASDIRECTED [facility] Last Admin: 09/23/18 07:58 Dose: 70 mls/hr Diltiazem HCl 125 mg/ Sodium (Chloride) 125 mls @ 5 mls/hr IV TITRATE [facility]; Protocol Last Infusion: 09/22/18 12:16 Dose: 15 mg/hr, 15 mls/hr Piperacillin/Tazobactam/ (Dextrose 3.375 gm/ Premix) 50 mls @ 100 mls/hr IV Q6H [facility] Last Admin: 09/23/18 11:21 Dose: 100 mls/hr Vancomycin HCl 1 gm/ Sodium (Chloride) 250 mls @ 166.667 mls/hr IV Q24H [facility] Last Admin: 09/22/18 12:54 Dose: 166.667 mls/hr Lidocaine HCl (Xylocaine 2%) 0 mg IVPUSH ASDIRECTED PRN PRN Reason: Heart Metoprolol Tartrate (Lopressor) 100 mg PO BID [facility] Last Admin: 09/23/18 11:20 Dose: 100 mg Morphine Sulfate (Morphine) 1 mg IV Q2H PRN PRN Reason: Chest Pain Last Admin: 09/23/18 09:05 Dose: 1 mg Nitroglycerin (Nitrostat) 0.4 mg SL ASDIRECTED PRN PRN Reason: Heart Pantoprazole Sodium (Protonix Iv) 40 mg IVPUSH Q12H [facility] Last Admin: 09/23/18 06:31 Dose: 40 mg Fluticasone/Salmeterol (Advair Diskus 250-50) 1 puff INH BID [facility] Last Admin: 09/23/18 09:10 Dose: 1 puff Vancomycin HCl (Pharmacy To Dose - Vancomycin) 1 dose .XX ASDIRECTED [facility] Discontinued Medications Digoxin (Lanoxin) 500 mcg PO ONETIME ONE Stop: 09/22/18 22:01 Last Admin: 09/22/18 22:26 Dose: 500 mcg Digoxin (Lanoxin) 250 mcg PO DAILY@0600 [facility] Digoxin (Lanoxin) 250 mcg PO ONETIME ONE Stop: 09/23/18 06:01 Last Admin: 09/23/18 06:32 Dose: 250 mcg Diltiazem HCl (Diltiazem) 18 mg IVPUSH ONETIME ONE Stop: 09/22/18 08:21 Last Admin: 09/22/18 08:11 Dose: 18 mg Diltiazem HCl (Diltiazem) 25 mg IVPUSH ONETIME ONE Stop: 09/22/18 08:31 Last Admin: 09/22/18 08:45 Dose: 25 mg Sodium Chloride (Normal Saline) 1,000 mls @ 100 mls/hr IV ASDIRECTED [facility] Last Admin: 09/21/18 22:04 Dose: 100 mls/hr Sodium Chloride (Normal Saline) 300 mls @ 999 mls/hr IV .BOLUS ONE Stop: 09/22/18 09:10 Last Admin: 09/22/18 09:02 Dose: 999 mls/hr Sodium Chloride (Normal Saline) 300 mls @ 999 mls/hr IV ONETIME ONE Stop: 09/22/18 21:26 Last Admin: 09/22/18 21:19 Dose: 999 mls/hr Metoprolol Tartrate (Lopressor) 50 mg PO ONETIME ONE Stop: 09/22/18 23:16 Last Admin: 09/22/18 23:48 Dose: 50 mg Morphine Sulfate (Morphine) 2 mg IVPUSH ONETIME ONE Stop: 09/21/18 16:50 Last Admin: 09/21/18 17:36 Dose: 2 mg Nitroglycerin (Nitrostat) 0.4 mg SL ONETIME ONE Stop: 09/22/18 08:26 Last Admin: 09/22/18 08:38 Dose: 0.4 mg Pantoprazole Sodium (Protonix Iv) 40 mg IVPUSH Q12H [facility] Last Admin: 09/21/18 15:42 Dose: 40 mg - Exam Quality Assessment: Supplemental Oxygen, DVT Prophylaxis General: Mild Distress, Other (More alert today,) Neck: Other (Mild JVD) Lungs: Crackles, Rhonchi. No: Wheezing Cardiovascular: Irregular Rhythm, Tachycardia GI/Abdominal Exam: Soft (Female) Exam: Deferred Back Exam: No: CVA Tenderness (R) Extremities: Pedal Edema Peripheral Pulses: 2+: Radial (L), Radial (R) Skin: Warm, Dry, Intact Psy/Mental Status: Alert. No: Agitated - Problem List Review Problem List Initiated/Reviewed/Updated: Yes - My Orders Last 24 Hours: My Active Orders 09/22/18 11:15 CULTURE BLOOD [BC] Stat 09/22/18 11:22 Morphine 1 mg IV Q2H PRN 09/22/18 11:30 CULTURE BLOOD [BC] Stat 09/22/18 11:46 Code Status [Resuscitation Status] Routine 09/22/18 12:00 Vancomycin 1 gm Sodium Chloride 0.9% [Normal Saline] 250 ml IV Q24H 09/22/18 15:18 Communication Order [RC] ROUTINE 09/23/18 10:30 Metoprolol Tartrate [Lopressor] 100 mg PO BID 09/24/18 09:00 Diltiazem [Cardizem CD] 180 mg PO QAM - Plan Plan:: Please use this as a critical care note today History 83-year-old patient resident of long-term care was admitted yesterday Annalisa Grijalva [facility] and she presented with lethargy, Abd pain, Nausea with black colored emesis after aching her morning medications. Reports from intermediate staff indicated patient having increase in her RR, occasional congested cough, VS at NH: 98.7F, HR 70 bpm, 32 RR, 102/77, 93% on room air. Hx of CHF and chronic atrial fibrillation on chronic anticoagulation. History of cardiac disease including coronary artery disease, ischemic cardiomyopathy, heart failure and atrial fibrillation. On warfarin along with diltiazem CD 180 mg daily & lopressor 100 mg BID. On iron Pertinent labs/diagnostic [facility] EKG, atrial fibrillation with RVR rate 110, QTc 425 CxR; Right lung clear. atelectasis or developing infiltrative process the left lung base Gastric occult initial stool occult for blood negative CBC 6.6 Neutrophilia BUN 29/creatinine 1.5 to INR 3.1 Update today on rounds, son at bedside, patient is more communicative, slightly more alert and is requesting Sprite to drink. Denies chest pain, improved shortness of breath, reviewed overnight telemetry heart rate variable however still remains RVR. No longer anxious, morphine improved oxygen status, Requiring less oxygen on nasal cannula now, Digoxin started, restarted beta marci. Map/BP much improved Primary hospital problems -Atrial fibrillation with RVR, [id number], holding anticoagulation due to recent history of possible GI bleed, Hgb good. monitor INR -HFrEF: EF 25% on echocardiogram -NSTEMI, slight elevation of cardiac biomarker now normal, 2/2 demand ischemia, -Ischemic heart disease, add Imdur due to noticed ischemia ECG -Rule out GI bleed, hemoglobin stable, twice a day PPI, is ruling out so far -Suspect pneumonia/infectious process as culprit for A. fib break-through, add broad-spectrum and Vancomycin. Chronic conditions -HTN: lisinopril 2.5 mg daily -COPD, advair 250-50 mcg BID. -HLD, on statin therapy, -CKD stage 3: GFR 38, creatinine 1.32 (08/30/18) -Pulmonary hypertension -Depression Plan --Continue inpatient stay with Telemetry --Hold Advair due to condition, add alb/pulmicort nebs. --Lasix today --offer oral water --add low dose imdur --Continue appropriate renal dose IV antibiotics --Procalcitonin pending --Monitor INR, consider restarting anticoagulation in future due to risk profile , no GI bleed suspected. Condition/disposition Patient has improved, more alert today, SonBenji POA, on rounds this morning. Needs improved rate control Restart beta marci, CCB, digoxin. son/POMervat decided modified code. No CPR such as NO chest compressions, no intubation, however he would request 1x defibrillation only if shockable rhythm. No transfer to higher level of care.
[2018-09-23] MEDS: Isosorbide Mononitrate 30 MG Tab.ER PO SCH (13:05)
[2018-09-23] MEDS: Albuterol 0.083% 2.5 MG/3 ML Neb Soln NEB SCH ×2 (13:08→20:36)
[2018-09-23] MEDS: Budesonide 0.5 MG/2 ML Neb Susp NEB SCH ×2 (13:26→19:47)
[2018-09-23] MEDS: Digoxin 125 MCG Tab PO SCH (17:33)
[2018-09-24] MEDS: Pantoprazole 40 MG Vial IVPUSH SCH ×2 (04:54→16:48)
[2018-09-24] MEDS: Piperacillin/Tazobactam/Dext 3.375 GM in Premix Bag 1 BAG IV SCH ×4 (04:55→23:01)
[2018-09-24 09:14] LABS: ANION GAP 20.2 mmol/L (5-15)
[2018-09-24] MEDS: Albuterol 0.083% 2.5 MG/3 ML Neb Soln NEB SCH ×2 (09:33→20:33)
[2018-09-24] MEDS: Metoprolol Tartrate 50 MG Tab PO SCH ×2 (09:56→20:34)
[2018-09-24] MEDS: Diltiazem 180 MG Cap.CD PO SCH (09:57)
[2018-09-24] MEDS: Isosorbide Mononitrate 30 MG Tab.ER PO SCH (09:57)
[2018-09-24] MEDS: Budesonide 0.5 MG/2 ML Neb Susp NEB SCH ×2 (10:18→20:42)
--- NOTE | 2018-09-24 11:40 | PCM.PN ---
- General Info Date of Service: 09/24/18 Subjective Update: Ms. Hardin reports feeling much better today than she has. Breathing easier without significant cough. Denies current pain. Appetite slowly improving. No new complaints. - Patient Data Vitals - Most Recent: Last Vital Signs Temp 36.3 C 09/24/18 06:55 Pulse 109 H 09/24/18 09:57 Resp 20 09/24/18 06:55 BP 139/77 09/24/18 09:57 Pulse Ox 97 09/24/18 06:55 Weight - Most Recent: 74.134 kg I&O - Last 24 Hours: Intake & Output 09/23/18 09/24/18 09/24/18 22:59 06:59 14:59 Intake Total 850 160 Balance 850 160 Lab Results Last 24 Hours: Laboratory Results - last 24 hr 09/24/18 09/24/18 09/24/18 Range/Units 08:30 09:30 10:15 PT 46.6 H D (8.9-11.4) SEC INR 6.1 H* 4.8 H* (0.9-1.1) Sodium 149 H (136-145) mmol/L Potassium 3.5 (3.3-5.3) mmol/L Chloride 112 (98-115) mmol/L Carbon Dioxide 20.3 L (21.0-32.0) mmol/L Anion Gap 20.2 H (5-15) mmol/L BUN 32 H (6-25) mg/dL Creatinine 1.33 H (0.51-1.17) mg/dL Est Cr Clr Drug Dosing 27.83 mL/min Estimated GFR (MDRD) 38 mL/min Glucose 82 (75 - 99) mg/dL Calcium 7.5 L (8.7-10.3) mg/dL [facility] Results Last 24 Hours: Microbiology 09/23/18 13:30 Stool Occult Blood ([facility]) - Final Stool / Feces 09/22/18 11:15 Aerobic Blood Culture - Preliminary Blood - Venous NO GROWTH AFTER 1 DAY Anaerobic Blood Culture - Preliminary NO GROWTH AFTER 1 DAY 09/22/18 11:30 Aerobic Blood Culture - Preliminary Blood - Venous - Lab Draw NO GROWTH AFTER 1 DAY Anaerobic Blood Culture - Preliminary NO GROWTH AFTER 1 DAY Med Orders - Current: Current Medications Acetaminophen (Tylenol) 650 mg RECTAL Q4H PRN PRN Reason: PAIN, FEVER Albuterol (Proventil Neb Soln) 2.5 mg NEB [id number] [facility] Last Admin: 09/24/18 09:33 Dose: 2.5 mg Budesonide (Pulmicort) 0.5 mg NEB BIDRT [facility] Last Admin: 09/24/18 10:18 Dose: 0.5 mg Digoxin (Lanoxin) 125 mcg PO DAILY@1800 [facility] Last Admin: 09/23/18 17:33 Dose: 125 mcg Diltiazem HCl (Cardizem Cd) 180 mg PO QAM [facility] Last Admin: 09/24/18 09:57 Dose: 180 mg Piperacillin/Tazobactam/ (Dextrose 3.375 gm/ Premix) 50 mls @ 100 mls/hr IV Q6H [facility] Last Admin: 09/24/18 11:32 Dose: 100 mls/hr Vancomycin HCl 1 gm/ Sodium (Chloride) 250 mls @ 166.667 mls/hr IV Q24H [facility] Last Admin: 09/23/18 13:00 Dose: 166.667 mls/hr Isosorbide Mononitrate (Imdur) 30 mg PO DAILY [facility] Last Admin: 09/24/18 09:57 Dose: 30 mg Metoprolol Tartrate (Lopressor) 100 mg PO BID [facility] Last Admin: 09/24/18 09:56 Dose: 100 mg Nitroglycerin (Nitrostat) 0.4 mg SL ASDIRECTED PRN PRN Reason: Heart Pantoprazole Sodium (Protonix Iv) 40 mg IVPUSH BID@0500,1700 [facility] Last Admin: 09/24/18 04:54 Dose: 40 mg Fluticasone/Salmeterol (Advair Diskus 250-50) 1 puff INH BID [facility] Last Admin: 09/23/18 09:10 Dose: 1 puff Vancomycin HCl (Pharmacy To Dose - Vancomycin) 1 dose .XX ASDIRECTED [facility] Discontinued Medications Atropine Sulfate (Atropine 0.1 Mg/Ml) 0 mg IVPUSH ASDIRECTED PRN PRN Reason: Heart Digoxin (Lanoxin) 500 mcg PO ONETIME ONE Stop: 09/22/18 22:01 Last Admin: 09/22/18 22:26 Dose: 500 mcg Digoxin (Lanoxin) 250 mcg PO DAILY@0600 [facility] Digoxin (Lanoxin) 250 mcg PO ONETIME ONE Stop: 09/23/18 06:01 Last Admin: 09/23/18 06:32 Dose: 250 mcg Diltiazem HCl (Diltiazem) 18 mg IVPUSH ONETIME ONE Stop: 09/22/18 08:21 Last Admin: 09/22/18 08:11 Dose: 18 mg Diltiazem HCl (Diltiazem) 25 mg IVPUSH ONETIME ONE Stop: 09/22/18 08:31 Last Admin: 09/22/18 08:45 Dose: 25 mg Epinephrine HCl (Epinephrine 1:10,000) 1 mg IVPUSH ASDIRECTED PRN PRN Reason: Heart Furosemide (Lasix) 20 mg IVPUSH NOW ONE Stop: 09/23/18 12:22 Last Admin: 09/23/18 13:03 Dose: 20 mg Sodium Chloride (Normal Saline) 1,000 mls @ 100 mls/hr IV ASDIRECTED [facility]ATHA Last Admin: 09/21/18 22:04 Dose: 100 mls/hr Sodium Chloride (Normal Saline) 300 mls @ 999 mls/hr IV .BOLUS ONE Stop: 09/22/18 09:10 Last Admin: 09/22/18 09:02 Dose: 999 mls/hr Sodium Chloride (Normal Saline) 1,000 mls @ 70 mls/hr IV ASDIRECTED AGATHA Last Admin: 09/23/18 07:58 Dose: 70 mls/hr Diltiazem HCl 125 mg/ Sodium (Chloride) 125 mls @ 5 mls/hr IV TITRATE AGATHA; Protocol Last Infusion: 09/22/18 12:16 Dose: 15 mg/hr, 15 mls/hr Sodium Chloride (Normal Saline) 300 mls @ 999 mls/hr IV ONETIME ONE Stop: 09/22/18 21:26 Last Admin: 09/22/18 21:19 Dose: 999 mls/hr Lidocaine HCl (Xylocaine 2%) 0 mg IVPUSH ASDIRECTED PRN PRN Reason: Heart Metoprolol Tartrate (Lopressor) 50 mg PO ONETIME ONE Stop: 09/22/18 23:16 Last Admin: 09/22/18 23:48 Dose: 50 mg Morphine Sulfate (Morphine) 2 mg IVPUSH ONETIME ONE Stop: 09/21/18 16:50 Last Admin: 09/21/18 17:36 Dose: 2 mg Morphine Sulfate (Morphine) 1 mg IV Q2H PRN PRN Reason: Chest Pain Last Admin: 09/23/18 09:05 Dose: 1 mg Nitroglycerin (Nitrostat) 0.4 mg SL ONETIME ONE Stop: 09/22/18 08:26 Last Admin: 09/22/18 08:38 Dose: 0.4 mg Pantoprazole Sodium (Protonix Iv) 40 mg IVPUSH Q12H [facility] Last Admin: 09/21/18 15:42 Dose: 40 mg Pantoprazole Sodium (Protonix Iv) 40 mg IVPUSH Q12H [facility] Last Admin: 09/23/18 17:33 Dose: 40 mg - Exam Physical Findings Comments:: GENERAL: Elderly white female sitting in hospital bed with in no acute distress. HEENT: Normocephalic, atraumatic. Conjunctiva clear. Nares patent without discharge. Mucous membranes moist. NECK: Supple, no masses. CV: Irregularly irregular, not tachycardic, no murmurs, rubs, or gallops. 2+ radial pulses. PULMONARY: Normal effort, faint rhonchi in LLL, no wheezes or rales. ABDOMEN: Positive bowel sounds, soft, nontender, nondistended. EXTREMITIES: No edema, cyanosis, or clubbing. MUSCULOSKELETAL: Moves all extremities well. NEUROLOGICAL: No obvious deficits. DERMATOLOGIC: No rashes or suspicious lesions in exposed areas. PSYCHIATRIC: Alert, interactive, appropriate affect. - Problem List Review Problem List Initiated/Reviewed/Updated: Yes - My Orders Last 24 Hours: My Active Orders 09/24/18 05:00 Pantoprazole [ProTONIX IV] 40 mg IVPUSH BID@0500,1700 09/24/18 09:21 Patient Status [ADT] Routine 09/25/18 05:11 BASIC METABOLIC PANEL,BMP [CHEM] AM CBC WITH AUTO DIFF [HEME] AM INR,PT,PROTHROMBIN TIME [COAG] AM - Plan Plan:: HPI summary: 83-year-old female with a history notable for coronary artery disease, ischemic cardiomyopathy, heart failure and atrial fibrillation who is a resident of [facility] who was evaluated on 09/21/18 by THEO Andrea, at [facility] for lethargy, abdominal pain, nausea with concern for dark colored emesis after taking her morning medications. Reports from [facility] staff indicated patient having increase in her RR and occasional congested cough. Hx of CHF and chronic atrial fibrillation on chronic anticoagulation. Pre-admission course: WBC 6.6 with neutrophilia BUN 29/Creatinine 1.5 INR 3.1 EKG Atrial fibrillation with RVR rate 110, QTc 425 CXR Atelectasis or developing infiltrative process the left lung base Hospital course: Emesis and fecal occult negative; hgb stable. Started on vancomycin and Zosyn for possible pneumonia; procalcitonin obtained prior. Atrial fibrillation with RVR became quite uncontrolled resulting in hypotension and elevation in troponin to max 0.[address] depressionin II/III/aVF requiring diltiazem IV and drip followed by initiation of digoxin and isosorbide. RVR likely related to underlying pulmonary infectious process. In the past 24hrs, has had ongoing improvement in clinical status, including normalization of vital signs and liberation from oxygen. Despite not receiving warfarin in 3 days , her INR increased to 4.8. Blood cultures NG x 2d. Hospitalization problems and plan: # Acute hypoxic respiratory failure, resolved # Possible pneumonia, healthcare acquired, LLL # Atrial fibrillation, chronic, RVR resolved # HFrEF / Ischemic cardiomyopathy: 09/07/17 echo with EF 25% and global hypokinesis as well as markedly dilated left atrium. # NSTEMI, secondary to demand ischemia # HTN # Dark colored emesis, resolved, no evidence of GI bleed # Supratherapeutic INR - Transfer from CCU to inpatient and discontinue telemetry - Continue digoxin, diltiazem, metoprolol, isosorbide - Resume lisinopril 2.5mg and furosemide 20mg tomorrow - Continue vancomycin/Zosyn pending procalcitonin, at which point will discontinue or transition to oral regimen to complete course for pneumonia - Discontinue pantoprazole - Continue holding warfarin; no bleeding, so no indication for vitamin K at this time despite supratherapeutic INR, which pharmacist has been requested to review to ensure she has not received warfarin. - Recheck CBC, BMP, INR tomorrow Chronic, stable conditions: # COPD: Resume Advair 250-50 mcg BID along with albuterol prn. No evidence of exacerbation. # Constipation: Controlled without home regimen. Resume PEG and docusate as needed. # HLD: Resume atorvastatin 40mg. # CKD stage 3 # Anemia: Stable. Resume Fe/vitC. # OA, generalized: Stable. Tyl. # Depression: Resume sertraline. Hospitalization details: # FEN: No IVF. Electrolytes normal. Soft diet. # PPX: Supratherapeutic INR sufficient for DVT ppx. Melatonin for delirium ppx. # Code status: MODIFIED per son with NO chest compressions, NO intubation, however he requests 1x defibrillation only if shockable rhythm. No transfer to higher level of care. # Emergency contact: Son, who was updated by nursing staff. # Disposition: Transfer from CCU to inpatient given clinical improvement. If no concerns arise, anticipate discharge back to [facility] tomorrow.
[2018-09-24] MEDS ORDERED: Digoxin 125 MCG Tab PO SCH (18:00)
[2018-09-24] MEDS: Digoxin 125 MCG Tab PO SCH (18:43)
[2018-09-25] MEDS: Piperacillin/Tazobactam/Dext 3.375 GM in Premix Bag 1 BAG IV SCH (05:32)
[2018-09-25] MEDS: Diltiazem 180 MG Cap.CD PO SCH (08:31)
[2018-09-25] MEDS: Metoprolol Tartrate 50 MG Tab PO SCH (08:32)
[2018-09-25] MEDS: Isosorbide Mononitrate 30 MG Tab.ER PO SCH (08:32)
[2018-09-25 08:33] VITALS: BP 132/75
[2018-09-25] MEDS ORDERED: Sertraline 50 MG Tab PO SCH (09:00)
[2018-09-25] MEDS: Fluticasone/Salmeterol 250-50 MCG Inhalation Powder 14/Diskus INH SCH (09:00)
[2018-09-25] MEDS ORDERED: Potassium Chloride 20 MEQ Tab.ER PO ONE (09:05)
[2018-09-25] MEDS: Albuterol 0.083% 2.5 MG/3 ML Neb Soln NEB SCH (09:10)
--- NOTE | 2018-09-25 10:27 | PCM.DCSUM1 ---
Discharge Summary - Hospital Course Free Text/Narrative:: Date of admission: Date of discharge: Admission diagnoses: Discharge diagnoses: Consultations: Procedures: Hospital course: Overview. (S)He was continued on other medications for chronic medical conditions with the exception of . (S)He had excellent clinical improvement throughout hospitalization and was deemed ready for discharge back to . (S)He was discharged on prior home medications. (S)He will follow-up with PCP on . Follow-up items underlined below in problem-based assessment and plan: HPI summary: 83-year-old female with a history notable for coronary artery disease, ischemic cardiomyopathy, heart failure and atrial fibrillation who is a resident of [facility] who was evaluated on 09/21/18 by THEO Andrea, at [facility] for lethargy, abdominal pain, nausea with concern for dark colored emesis after taking her morning medications. Reports from senior care staff indicated patient having increase in her RR and occasional congested cough. Hx of CHF and chronic atrial fibrillation on chronic anticoagulation. Pre-admission course: WBC 6.6 with neutrophilia BUN 29/Creatinine 1.5 INR 3.1 EKG Atrial fibrillation with RVR rate 110, QTc 425 CXR Atelectasis or developing infiltrative process the left lung base Hospital course: Emesis and fecal occult negative; hgb stable. Started on vancomycin and Zosyn for possible pneumonia; procalcitonin obtained prior. Atrial fibrillation with RVR became quite uncontrolled resulting in hypotension and elevation in troponin to max 0.[address] depressionin II/III/aVF requiring diltiazem IV and drip followed by initiation of digoxin and isosorbide. RVR likely related to underlying pulmonary infectious process. In the past 24hrs, has had ongoing improvement in clinical status, including normalization of vital signs and liberation from oxygen. Despite not receiving warfarin in 3 days , her INR increased to 4.8. Blood cultures NG x 2d. Hospitalization problems and plan: # Acute hypoxic respiratory failure, resolved # Possible pneumonia, healthcare acquired, LLL # Atrial fibrillation, chronic, RVR resolved # HFrEF / Ischemic cardiomyopathy: 09/07/17 echo with EF 25% and global hypokinesis as well as markedly dilated left atrium. # NSTEMI, secondary to demand ischemia # HTN # Dark colored emesis, resolved, no evidence of GI bleed # Supratherapeutic INR - Transfer from CCU to inpatient and discontinue telemetry - Continue digoxin, diltiazem, metoprolol, isosorbide - Resume lisinopril 2.5mg and furosemide 20mg tomorrow - Continue vancomycin/Zosyn pending procalcitonin, at which point will discontinue or transition to oral regimen to complete course for pneumonia - Discontinue pantoprazole - Continue holding warfarin; no bleeding, so no indication for vitamin K at this time despite supratherapeutic INR, which pharmacist has been requested to review to ensure she has not received warfarin. - Recheck CBC, BMP, INR tomorrow Chronic, stable conditions: # COPD: Resume Advair 250-50 mcg BID along with albuterol prn. No evidence of exacerbation. # Constipation: Controlled without home regimen. Resume PEG and docusate as needed. # HLD: Resume atorvastatin 40mg. # CKD stage 3 # Anemia: Stable. Resume Fe/vitC. # OA, generalized: Stable. Tyl. # Depression: Resume sertraline. Hospitalization details: # FEN: No IVF. Electrolytes normal. Soft diet. # PPX: Supratherapeutic INR sufficient for DVT ppx. Melatonin for delirium ppx. # Code status: MODIFIED per son with NO chest compressions, NO intubation, however he requests 1x defibrillation only if shockable rhythm. No transfer to higher level of care. # Emergency contact: Son, who was updated by nursing staff. # Disposition: Transfer from CCU to inpatient given clinical improvement. If no concerns arise, anticipate discharge back to [facility] tomorrow. - Discharge Data Discharge Date: 09/25/18 Discharge Disposition: DC/Tfer to SNF 03 Condition: Good - Patient Instructions Diet: Usual Diet as Tolerated Activity: As Tolerated Notify Provider of: Fever, Increased Pain - Discharge Plan *PRESCRIPTION DRUG MONITORING PROGRAM REVIEWED*: Not Applicable *COPY OF PRESCRIPTION DRUG MONITORING REPORT IN PATIENT MEAGAN: Not Applicable Prescriptions/Med Rec: Albuterol/Ipratropium [DuoNeb 3.0-0.5 MG/3 ML] 3 ml INH Q6H PRN #30 neb PRN Reason: Shortness Of Breath Amoxicillin/Clavulanate K [Augmentin 875-125 MG] 1 tab PO BID 3 Days #6 tablet Digoxin 125 mcg PO DAILY #30 tablet Isosorbide Mononitrate [Imdur] 30 mg PO DAILY #30 tab.er Home Medications: Home Meds Fluticasone/Salmeterol [Advair 250-50] 1 puff INH BID 05/31/14 [History] atorvaSTATin [Lipitor] 20 mg PO BEDTIME 05/31/14 [History] Ferrous Sulfate 325 mg PO QAM 08/29/16 [History] Nitroglycerin [Nitrostat] 0.4 mg SL Q5M PRN 08/29/16 [History] Ascorbic Acid [Vitamin C] 500 mg PO QAM 09/29/16 [History] Warfarin [Coumadin] 2.5 mg PO ASDIRECTED 09/29/16 [History] Acetaminophen [Tylenol Arthritis] 650 mg PO BID 12/18/16 [History] Metoprolol Tartrate [Lopressor] 100 mg PO BID 12/18/16 [History] Polyethylene Glycol 3350 [MiraLAX] 17 gm PO QAM 12/18/16 [History] Calcium Carbonate/Vitamin D3 [Calcium 600 + Vit D 400 Softgl] 1 cap PO QAM 12/19 [History] Sennosides/Docusate Sodium [Senna Plus Tablet] 1 tab PO BID 06/30/17 [History] Acetaminophen [Tylenol Arthritis] 650 mg PO DAILY PRN 07/03/17 [History] Multivitamins/Min/Ca/FA/Iron [Thera-M] 1 tab PO QAM 07/03/17 [History] Chlorophyllin/Thymol [Chlorophyll] 1 tab PO DAILY 04/11/18 [History] Lisinopril 2.5 mg PO DAILY 04/11/18 [History] Warfarin [Coumadin] 1.25 mg PO ASDIRECTED 04/11/18 [History] Sertraline [Zoloft] 50 mg PO QAM 08/23/18 [History] Diltiazem [Cardizem CD] 180 mg PO QAM 09/21/18 [History] Non-Formulary Medication [NF Drug] 09/21/18 [History] Albuterol/Ipratropium [DuoNeb 3.0-0.5 MG/3 ML] 3 ml INH Q6H PRN #30 neb [Rx] Amoxicillin/Clavulanate K [Augmentin 875-125 MG] 1 tab PO BID 3 Days #6 tablet 09/25/18 [Rx] Digoxin 125 mcg PO DAILY #30 tablet 09/25/18 [Rx] Furosemide 20 mg PO QAM #0 09/25/18 [Rx] Isosorbide Mononitrate [Imdur] 30 mg PO DAILY #30 tab.er 09/25/18 [Rx] Referrals: Jana Perry MD [Primary Care Provider] - (next senior care rounds) - Discharge Summary/Plan Comment DC Time >30 min.: Yes - General Info Subjective Update: Ms. Hardin reports feeling much better today than she has. Breathing easier without significant cough. Denies current pain. Appetite improved. No new complaints. - Patient Data Vitals - Most Recent: Last Vital Signs Temp 37.2 C 09/25/18 06:54 Pulse 92 09/25/18 09:00 Resp 20 09/25/18 06:54 BP 132/75 09/25/18 08:32 Pulse Ox 97 09/25/18 09:00 Weight - Most Recent: 75.013 kg I&O - Last 24 hours: Intake & Output 09/24/18 09/25/18 09/25/18 22:59 06:59 14:59 Intake Total 550 250 Balance 550 250 Lab Results - Last 24 hrs: Laboratory Results - last 24 hr 09/22/18 09/24/18 09/25/18 Range/Units 07:14 10:15 07:30 WBC 5.75 (5.00-10.00) 10^3/uL RBC 4.08 (3.80-5.50) 10^6/uL Hgb 11.5 L (12.0-16.0) g/dL Hct 34.4 L (37.0-47.0) % MCV 84.3 (82.0-92.0) fL MCH 28.2 (27.0-31.0) pg MCHC 33.4 (32.0-36.0) g/dL RDW 14.8 H (11.5-14.5) % Plt Count 211 (150-400) 10^3/uL MPV 10.8 H (7.4-10.4) fL Immature Gran % (Auto) 0.3 (0.0-5.0) % Neut % (Auto) 69.1 (50.0-70.0) % Lymph % (Auto) 16.3 L (20.0-40.0) % [place] % (Auto) 10.8 H (2.0-8.0) % Eos % (Auto) 3.0 (1.0-3.0) % Baso % (Auto) 0.5 (0.0-1.0) % Immature Gran # (Auto) 0.02 (0.00-0.50) 10^3/uL Neut # (Auto) 3.97 (2.50-7.00) 10^3/uL Lymph # (Auto) 0.94 L (1.00-4.00) 10^3/uL [place] # (Auto) 0.62 (0.10-0.80) 10^3/uL Eos # (Auto) 0.17 (0.10-0.30) 10^3/uL Baso # (Auto) 0.03 (0.00-0.10) 10^3/uL PT 46.6 H D (8.9-11.4) SEC INR 4.8 H* (0.9-1.1) Sodium (136-145) mmol/L Potassium (3.3-5.3) mmol/L Chloride (98-115) mmol/L Carbon Dioxide (21.0-32.0) mmol/L Anion Gap (5-15) mmol/L BUN (6-25) mg/dL Creatinine (0.51-1.17) mg/dL Est Cr Clr Drug Dosing mL/min Estimated GFR (MDRD) mL/min Glucose (75 - 99) mg/dL Calcium (8.7-10.3) mg/dL Procalcitonin 0.10 H (<0.10) ng/mL 09/25/18 09/25/18 Range/Units 07:30 07:30 WBC (5.00-10.00) 10^3/uL RBC (3.80-5.50) 10^6/uL Hgb (12.0-16.0) g/dL Hct (37.0-47.0) % MCV (82.0-92.0) fL MCH (27.0-31.0) pg MCHC (32.0-36.0) g/dL RDW (11.5-14.5) % Plt Count (150-400) 10^3/uL MPV (7.4-10.4) fL Immature Gran % (Auto) (0.0-5.0) % Neut % (Auto) (50.0-70.0) % Lymph % (Auto) (20.0-40.0) % [place] % (Auto) (2.0-8.0) % Eos % (Auto) (1.0-3.0) % Baso % (Auto) (0.0-1.0) % Immature Gran # (Auto) (0.00-0.50) 10^3/uL Neut # (Auto) (2.50-7.00) 10^3/uL Lymph # (Auto) (1.00-4.00) 10^3/uL [place] # (Auto) (0.10-0.80) 10^3/uL Eos # (Auto) (0.10-0.30) 10^3/uL Baso # (Auto) (0.00-0.10) 10^3/uL PT 32.6 H D (8.9-11.4) SEC INR 3.3 H (0.9-1.1) Sodium 143 (136-145) mmol/L Potassium 2.5 L (3.3-5.3) mmol/L Chloride 110 (98-115) mmol/L Carbon Dioxide 20.5 L (21.0-32.0) mmol/L Anion Gap 15.0 (5-15) mmol/L BUN 25 (6-25) mg/dL Creatinine 1.27 H (0.51-1.17) mg/dL Est Cr Clr Drug Dosing 29.14 mL/min Estimated GFR (MDRD) 40 mL/min Glucose 89 (75 - 99) mg/dL Calcium 7.6 L (8.7-10.3) mg/dL Procalcitonin (<0.10) ng/mL [facility]ETH Results - Last 24 hrs: Microbiology 09/22/18 11:15 Aerobic Blood Culture - Preliminary Blood - Venous NO GROWTH AFTER 2 DAYS Anaerobic Blood Culture - Preliminary NO GROWTH AFTER 2 DAYS 09/22/18 11:30 Aerobic Blood Culture - Preliminary Blood - Venous - Lab Draw NO GROWTH AFTER 2 DAYS Anaerobic Blood Culture - Preliminary NO GROWTH AFTER 2 DAYS Med Orders - Current: Current Medications Acetaminophen (Tylenol) 650 mg RECTAL Q4H PRN PRN Reason: PAIN, FEVER Albuterol (Proventil Neb Soln) 2.5 mg NEB [id number] [facility] Last Admin: 09/25/18 09:10 Dose: Not Given Digoxin (Lanoxin) 125 mcg PO DAILY@1800 [facility] Last Admin: 09/24/18 18:43 Dose: 125 mcg Diltiazem HCl (Cardizem Cd) 180 mg PO QAM [facility] Last Admin: 09/25/18 08:31 Dose: 180 mg Isosorbide Mononitrate (Imdur) 30 mg PO DAILY [facility] Last Admin: 09/25/18 08:32 Dose: 30 mg Metoprolol Tartrate (Lopressor) 100 mg PO BID [facility] Last Admin: 09/25/18 08:32 Dose: 100 mg Nitroglycerin (Nitrostat) 0.4 mg SL ASDIRECTED PRN PRN Reason: Heart Fluticasone/Salmeterol (Advair Diskus 250-50) 1 puff INH BID [facility] Last Admin: 09/25/18 09:00 Dose: 1 puff Sertraline HCl (Zoloft) 50 mg PO [facility] Last Admin: 09/25/18 08:32 Dose: 50 mg Discontinued Medications Atropine Sulfate (Atropine 0.1 Mg/Ml) 0 mg IVPUSH ASDIRECTED PRN PRN Reason: Heart Budesonide (Pulmicort) 0.5 mg NEB BIDRT [facility] Last Admin: 09/24/18 20:42 Dose: 0.5 mg Digoxin (Lanoxin) 500 mcg PO ONETIME ONE Stop: 09/22/18 22:01 Last Admin: 09/22/18 22:26 Dose: 500 mcg Digoxin (Lanoxin) 250 mcg PO DAILY@0600 [facility] Digoxin (Lanoxin) 250 mcg PO ONETIME ONE Stop: 09/23/18 06:01 Last Admin: 09/23/18 06:32 Dose: 250 mcg Diltiazem HCl (Diltiazem) 18 mg IVPUSH ONETIME ONE Stop: 09/22/18 08:21 Last Admin: 09/22/18 08:11 Dose: 18 mg Diltiazem HCl (Diltiazem) 25 mg IVPUSH ONETIME ONE Stop: 09/22/18 08:31 Last Admin: 09/22/18 08:45 Dose: 25 mg Epinephrine HCl (Epinephrine 1:10,000) 1 mg IVPUSH ASDIRECTED PRN PRN Reason: Heart Furosemide (Lasix) 20 mg IVPUSH NOW ONE Stop: 09/23/18 12:22 Last Admin: 09/23/18 13:03 Dose: 20 mg Sodium Chloride (Normal Saline) 1,000 mls @ 100 mls/hr IV ASDIRECTED [facility] Last Admin: 09/21/18 22:04 Dose: 100 mls/hr Sodium Chloride (Normal Saline) 300 mls @ 999 mls/hr IV .BOLUS ONE Stop: 09/22/18 09:10 Last Admin: 09/22/18 09:02 Dose: 999 mls/hr Sodium Chloride (Normal Saline) 1,000 mls @ 70 mls/hr IV ASDIRECTED [facility] Last Admin: 09/23/18 07:58 Dose: 70 mls/hr Diltiazem HCl 125 mg/ Sodium (Chloride) 125 mls @ 5 mls/hr IV TITRATE [facility]; Protocol Last Infusion: 09/22/18 12:16 Dose: 15 mg/hr, 15 mls/hr Piperacillin/Tazobactam/ (Dextrose 3.375 gm/ Premix) 50 mls @ 100 mls/hr IV Q6H [facility] Last Admin: 09/25/18 05:32 Dose: 100 mls/hr Vancomycin HCl 1 gm/ Sodium (Chloride) 250 mls @ 166.667 mls/hr IV Q24H [facility] Last Admin: 09/24/18 12:25 Dose: 166.667 mls/hr Sodium Chloride (Normal Saline) 300 mls @ 999 mls/hr IV ONETIME ONE Stop: 09/22/18 21:26 Last Admin: 09/22/18 21:19 Dose: 999 mls/hr Lidocaine HCl (Xylocaine 2%) 0 mg IVPUSH ASDIRECTED PRN PRN Reason: Heart Metoprolol Tartrate (Lopressor) 50 mg PO ONETIME ONE Stop: 09/22/18 23:16 Last Admin: 09/22/18 23:48 Dose: 50 mg Morphine Sulfate (Morphine) 2 mg IVPUSH ONETIME ONE Stop: 09/21/18 16:50 Last Admin: 09/21/18 17:36 Dose: 2 mg Morphine Sulfate (Morphine) 1 mg IV Q2H PRN PRN Reason: Chest Pain Last Admin: 09/23/18 09:05 Dose: 1 mg Nitroglycerin (Nitrostat) 0.4 mg SL ONETIME ONE Stop: 09/22/18 08:26 Last Admin: 09/22/18 08:38 Dose: 0.4 mg Pantoprazole Sodium (Protonix Iv) 40 mg IVPUSH Q12H [facility] Last Admin: 09/21/18 15:42 Dose: 40 mg Pantoprazole Sodium (Protonix Iv) 40 mg IVPUSH Q12H [facility] Last Admin: 09/23/18 17:33 Dose: 40 mg Pantoprazole Sodium (Protonix Iv) 40 mg IVPUSH BID@0500,1700 [facility] Last Admin: 09/24/18 16:48 Dose: 40 mg Potassium Chloride (Klor-Con M20) 40 meq PO ONETIME ONE Stop: 09/25/18 09:06 Last Admin: 09/25/18 09:23 Dose: 40 meq Vancomycin HCl (Pharmacy To Dose - Vancomycin) 1 dose .XX ASDIRECTED [facility] - Exam Physical Findings Comments:: GENERAL: Elderly white female sitting in hospital bed with in no acute distress. HEENT: Normocephalic, atraumatic. Conjunctiva clear. Nares patent without discharge. Mucous membranes moist. NECK: Supple, no masses. CV: Irregularly irregular, not tachycardic, no murmurs, rubs, or gallops. 2+ radial pulses. PULMONARY: Normal effort, faint rhonchi in LLL, no wheezes or rales. ABDOMEN: Positive bowel sounds, soft, nontender, nondistended. EXTREMITIES: No edema, cyanosis, or clubbing. MUSCULOSKELETAL: Moves all extremities well. NEUROLOGICAL: No obvious deficits. DERMATOLOGIC: No rashes or suspicious lesions in exposed areas. PSYCHIATRIC: Alert, interactive, appropriate affect.
== END 2018-09-25 11:45 | DRG 377 ==
LOC: KA.MS 11:35
PROVIDERS: ADMIT Nurse Practitioner Family; ATTEND Family Medicine
DX: K92.0 Hematemesis (principal); J96.01 Acute respiratory failure with hypoxia; I21.A1 Myocardial infarction type 2; J18.1 Lobar pneumonia, unspecified organism; I13.0 Hypertensive heart and chronic kidney disease with heart failure and stage 1 through stage 4 chronic kidney disease, or unspecified chronic kidney disease; I50.22 Chronic systolic (congestive) heart failure; F33.9 Major depressive disorder, recurrent, unspecified; I48.2 Chronic atrial fibrillation; N18.3 Chronic kidney disease, stage 3 (moderate); I27.20 Pulmonary hypertension, unspecified; E78.5 Hyperlipidemia, unspecified; J42 Unspecified chronic bronchitis; E86.0 Dehydration; I25.10 Atherosclerotic heart disease of native coronary artery without angina pectoris; T50.905A Adverse effect of unspecified drugs, medicaments and biological substances, initial encounter; K59.00 Constipation, unspecified; D64.9 Anemia, unspecified; M15.9 Polyosteoarthritis, unspecified
CPT/HCPCS: 36415; 80048; 80053; 82271; 82272; 83880; 84145; 84484; 85025; 85610; 87040; 93005; 94640; A4217; A9270-GY; C9113; J1940; J2270; J2543; J3370; J3490; J7030; J7050; J7613-GY

== ENCOUNTER 2018-10-06 09:13 | Emergency (ER) | payer MEDICARE, MEDICAID ==
[2018-10-06] MEDS: Sodium Chloride 0.9% 10 ML Syringe FLUSH PRN ×2 (09:50→12:31)
--- NOTE | 2018-10-06 10:04 | EDM.PDOC ---
ED HPI GENERAL MEDICAL PROBLEM - General Chief Complaint: Gastrointestinal Problem Stated Complaint: DEHYDRATION Time Seen by Provider: 10/06/18 09:38 Source of Information: Reports: EMS, [facility] Records History Limitations: Reports: Altered Mental Status - History of Present Illness INITIAL COMMENTS - FREE TEXT/NARRATIVE: Patient is an 83-year-old female who presents to the emergency department this morning via EMS from [facility]. Per nursing facility staff, Patient has had dark stools, abdominal distention, and was found to have an elevated INR 2 days ago. Discussed case with Dr. Eliseo chacko, although there has been some discrepancy as to CODE STATUS, currently the patient is a full code per family wishes. Patient will be evaluated for condition. Patient has a history of atrial fibrillation, was on Coumadin up to couple days ago and discontinued secondary to elevated INR. Patient has baseline dementia. Patient is not complaining of any discomfort, does not appear to be in distress , however, is lethargic. Onset: Gradual Duration: Chronic Location: Reports: Abdomen Improves with: Reports: None Worsens with: Reports: None Associated Symptoms: Reports: No Other Symptoms - Related Data Allergies Allergy/AdvReac Type Severity Reaction Status Date / Time No Known Drug Allergies Allergy none Verified 10/06/18 10:00 Home Meds: Home Meds Ferrous Sulfate 325 mg PO QAM 08/29/16 [History] Nitroglycerin [Nitrostat] 0.4 mg SL Q5M PRN 08/29/16 [History] Ascorbic Acid [Vitamin C] 500 mg PO QAM 09/29/16 [History] Acetaminophen [Tylenol Arthritis] 650 mg PO BID 12/18/16 [History] Metoprolol Tartrate [Lopressor] 100 mg PO BID 12/18/16 [History] Polyethylene Glycol 3350 [MiraLAX] 17 gm PO QAM 12/18/16 [History] Sennosides/Docusate Sodium [Senna Plus Tablet] 1 tab PO BID 06/30/17 [History] Acetaminophen [Tylenol Arthritis] 650 mg PO DAILY PRN 07/03/17 [History] Multivitamins/Min/Ca/FA/Iron [Thera-M] 1 tab PO QAM 07/03/17 [History] Chlorophyllin/Thymol [Chlorophyll] 1 tab PO DAILY 04/11/18 [History] Lisinopril 2.5 mg PO DAILY 04/11/18 [History] Warfarin [Coumadin] 1.25 mg PO ASDIRECTED 04/11/18 [History] Sertraline [Zoloft] 50 mg PO QAM 08/23/18 [History] Diltiazem [Cardizem CD] 180 mg PO QAM 09/21/18 [History] Albuterol/Ipratropium [DuoNeb 3.0-0.5 MG/3 ML] 3 ml INH Q6H PRN #30 neb [Rx] Digoxin 125 mcg PO DAILY #30 tablet 09/25/18 [Rx] Furosemide 20 mg PO QAM #0 09/25/18 [Rx] Cephalexin [Keflex] 500 mg PO TID #21 capsule 10/06/18 [Rx] Fluticasone/Salmeterol [Advair 250-50 Diskus] 1 puff IH BID 10/06/18 [History] Nitroglycerin [Nitro-Dur] 1 each TD DAILY 10/06/18 [History] Nystatin [Nystatin Crm] 15 gm TOP TID 10/06/18 [History] Phytonadione [Vitamin K] 100 mcg PO DAILY 10/06/18 [History] Potassium Chloride [Klor-Con] 20 meq PO DAILY 10/06/18 [History] Past Medical History HEENT History: Reports: Impaired Vision Cardiovascular History: Reports: Afib, Heart Failure, High Cholesterol, Hypertension, [place], Other (See Below) Other Cardiovascular History: ischemic cardiomyopathy Respiratory History: Reports: COPD Gastrointestinal History: Reports: Hemorrhoids Genitourinary History: Reports: Urinary Incontinence, UTI, Recurrent, Other ( See Below) Other Genitourinary History: CKD Stage III 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: Musculoskeletal History: Reports: Arthritis, Osteoarthritis, Other (See Below) Other Musculoskeletal History: BILATERAL SHOULDER PAIN Neurological History: Reports: TIA Psychiatric History: Reports: Dementia Hematologic History: Reports: Anemia, Iron Deficiency, Other (See Below) Other Hematologic History: pt takes iron tablet daily - Past Surgical History Head Surgeries/Procedures: Reports: None HEENT Surgical History: Reports: None Cardiovascular Surgical History: Reports: Carotid Stents Respiratory Surgical History: Reports: None Neurological Surgical History: Reports: None Social & Family History - Family History Family Medical History: Noncontributory - Caffeine Use Caffeine Use: Reports: Coffee, Soda Other Caffeine Use: coffee with meals. leonardo san and dr. corrales ED ROS GENERAL - Review of Systems Review Of Systems: ROS reveals no pertinent complaints other than HPI. Constitutional: Reports: No Symptoms HEENT: Reports: No Symptoms Respiratory: Reports: No Symptoms Cardiovascular: Reports: No Symptoms Endocrine: Reports: No Symptoms GI/Abdominal: Reports: Abdominal Pain, Black Stool : Reports: No Symptoms Musculoskeletal: Reports: No Symptoms Skin: Reports: No Symptoms Neurological: Reports: Pre-Existing Deficit Psychiatric: Reports: No Symptoms Hematologic/Lymphatic: Reports: No Symptoms Immunologic: Reports: No Symptoms ED EXAM, GENERAL - Physical Exam Exam: See Below Exam Limited By: Altered Mental Status (At Baseline) General Appearance: Alert, No Apparent Distress, Lethargic, Cachetic Eye Exam: Bilateral Eye: Normal Inspection Nose: Normal Inspection, No Blood Throat/Mouth: Normal Inspection, Normal Oropharynx, No Airway Compromise Head: Atraumatic, Normocephalic Neck: Normal Inspection Respiratory/Chest: No Respiratory Distress, Rales (Bibasilar) Cardiovascular: No Murmur, Irregularly Irregular GI/Abdominal: Normal Bowel Sounds, No Distention, No Abnormal Bruit, Tender ( Mildly suprapubic). No: Guarding, Rigid, Rebound, Mass Back Exam: Normal Inspection Extremities: Pedal Edema (One plus bilateral) Neurological: Slow to Respond Psychiatric: Normal Affect, Normal Mood Skin Exam: Warm, Dry, Intact, Normal Color, No Rash Course - Vital Signs Last Recorded V/S: Last Vital Signs Temp 97.8 F 10/06/18 09:15 Pulse 97 10/06/18 09:15 Resp 21 H 10/06/18 09:15 BP 146/88 H 10/06/18 09:15 Pulse Ox 94 L 10/06/18 09:15 - Orders/Labs/Meds Orders: Active Orders 24 hr Category Date Time Status EKG Documentation Completion [RC] ASDIRECTED Care 10/06/18 09:39 Active Peripheral IV Care [RC] . DIRECTED Care 10/06/18 09:25 Active CULTURE URINE [RM] Urgent Lab 10/06/18 09:23 Received Sodium Chloride 0.9% [Saline Flush] Med 10/06/18 09:24 Active 10 ml FLUSH Q8HR PRN Peripheral IV Insertion Adult [OM.PC] Routine Oth 10/06/18 09:24 Ordered EKG 12 Lead [EK] Routine Ther 10/06/18 09:38 Ordered Medication Orders Sodium Chloride (Saline Flush) 10 ml FLUSH Q8HR PRN PRN Reason: keep vein open Last Admin: 10/06/18 09:50 Dose: 10 ml Labs: Laboratory Tests 10/06/18 10/06/18 10/06/18 Range/Units 09:23 09:38 09:40 WBC 19.61 H D (5.00-10.00) 10^3/uL RBC 5.11 (3.80-5.50) 10^6/uL Hgb 14.4 D (12.0-16.0) g/dL Hct 44.5 (37.0-47.0) % MCV 87.1 (82.0-92.0) fL MCH 28.2 (27.0-31.0) pg MCHC 32.4 (32.0-36.0) g/dL RDW 18.4 H (11.5-14.5) % Plt Count 288 D (150-400) 10^3/uL MPV 11.2 H (7.4-10.4) fL Immature Gran % (Auto) 0.1 (0.0-5.0) % Neut % (Auto) 88.7 H (50.0-70.0) % Lymph % (Auto) 5.8 L (20.0-40.0) % [place] % (Auto) 4.8 (2.0-8.0) % Eos % (Auto) 0.3 L (1.0-3.0) % Baso % (Auto) 0.3 (0.0-1.0) % Immature Gran # (Auto) 0.02 (0.00-0.50) 10^3/uL Neut # (Auto) 17.40 H (2.50-7.00) 10^3/uL Lymph # (Auto) 1.14 (1.00-4.00) 10^3/uL [place] # (Auto) 0.94 H (0.10-0.80) 10^3/uL Eos # (Auto) 0.06 L (0.10-0.30) 10^3/uL Baso # (Auto) 0.05 (0.00-0.10) 10^3/uL PT (8.9-11.4) SEC INR (0.9-1.1) APTT (23.1-31.9) SEC Sodium (136-145) mmol/L Potassium (3.3-5.3) mmol/L Chloride (98-115) mmol/L Carbon Dioxide (21.0-32.0) mmol/L Anion Gap (5-15) mmol/L BUN (6-25) mg/dL Creatinine (0.51-1.17) mg/dL Est Cr Clr Drug Dosing mL/min Estimated GFR (MDRD) mL/min Glucose (75 - 99) mg/dL Calcium (8.7-10.3) mg/dL Total Bilirubin (0.2-1.0) mg/dL AST (15-37) U/L ALT (12-78) U/L Alkaline Phosphatase (46-116) IU/L B-Natriuretic Peptide 1320 H (0-100) pg/mL Total Protein (6.4-8.2) g/dL Albumin (3.00-4.80) g/dL Specimen Type Urine cath Urine Color Light yellow (YELLOW) Urine Appearance Turbid H (CLEAR) Urine pH 5.5 (5.0-9.0) Ur Specific [place] > 1.030 H (1.005-1.030) Urine Protein >=300 H (NEGATIVE) mg/dL Urine Glucose (UA) Negative (NEGATIVE) mg/dL Urine Ketones Trace H (NEGATIVE) mg/dL Urine Occult Blood Large H (NEGATIVE) Urine Nitrite Negative (NEGATIVE) Urine Bilirubin Small H (NEGATIVE) Urine Urobilinogen 0.2 (0.2-1.0) E.U./dL Ur Leukocyte Esterase Large H (NEGATIVE) Urine RBC See note (0-5) /HPF Urine WBC Packed (0-5) /HPF Urinalysis Comment See note 10/06/18 10/06/18 Range/Units 09:40 09:40 WBC (5.00-10.00) 10^3/uL RBC (3.80-5.50) 10^6/uL Hgb (12.0-16.0) g/dL Hct (37.0-47.0) % MCV (82.0-92.0) fL MCH (27.0-31.0) pg MCHC (32.0-36.0) g/dL RDW (11.5-14.5) % Plt Count (150-400) 10^3/uL MPV (7.4-10.4) fL Immature Gran % (Auto) (0.0-5.0) % Neut % (Auto) (50.0-70.0) % Lymph % (Auto) (20.0-40.0) % [place] % (Auto) (2.0-8.0) % Eos % (Auto) (1.0-3.0) % Baso % (Auto) (0.0-1.0) % Immature Gran # (Auto) (0.00-0.50) 10^3/uL Neut # (Auto) (2.50-7.00) 10^3/uL Lymph # (Auto) (1.00-4.00) 10^3/uL [place] # (Auto) (0.10-0.80) 10^3/uL Eos # (Auto) (0.10-0.30) 10^3/uL Baso # (Auto) (0.00-0.10) 10^3/uL PT 30.4 H (8.9-11.4) SEC INR 3.1 H (0.9-1.1) APTT 33.8 H (23.1-31.9) SEC Sodium 150 H (136-145) mmol/L Potassium 4.0 D (3.3-5.3) mmol/L Chloride 114 (98-115) mmol/L Carbon Dioxide 22.9 (21.0-32.0) mmol/L Anion Gap 17.1 H (5-15) mmol/L BUN 19 (6-25) mg/dL Creatinine 1.16 (0.51-1.17) mg/dL Est Cr Clr Drug Dosing 26.76 mL/min Estimated GFR (MDRD) 44 mL/min Glucose 106 H (75 - 99) mg/dL Calcium 8.2 L (8.7-10.3) mg/dL Total Bilirubin 0.5 (0.2-1.0) mg/dL AST 22 (15-37) U/L ALT 19 (12-78) U/L Alkaline Phosphatase 105 (46-116) IU/L B-Natriuretic Peptide (0-100) pg/mL Total Protein 6.9 (6.4-8.2) g/dL Albumin 2.58 L (3.00-4.80) g/dL Specimen Type Urine Color (YELLOW) Urine Appearance (CLEAR) Urine pH (5.0-9.0) Ur Specific [place] (1.005-1.030) Urine Protein (NEGATIVE) mg/dL Urine Glucose (UA) (NEGATIVE) mg/dL Urine Ketones (NEGATIVE) mg/dL Urine Occult Blood (NEGATIVE) Urine Nitrite (NEGATIVE) Urine Bilirubin (NEGATIVE) Urine Urobilinogen (0.2-1.0) E.U./dL Ur Leukocyte Esterase (NEGATIVE) Urine RBC (0-5) /HPF Urine WBC (0-5) /HPF Urinalysis Comment Meds: Medications Generic Name Dose Route Start Last Admin Trade Name Freq PRN Reason Stop Dose Admin Sodium Chloride 10 ml 10/06/18 09:24 10/06/18 09:50 Saline Flush FLUSH 10 ml Q8HR PRN Administration keep vein open - Radiology Interpretation Free Text/Narrative:: CT abdomen and pelvis without contrast shows moderate distention of the gallbladder, no other acute process. Chest x-ray shows no acute cardiopulmonary process - Re-Assessments/Exams Free Text/Narrative Re-Assessment/Exam: 10/06/18 12:16 Patient afebrile, nontoxic appearing, vital signs stable. Discussed case with Dr. Eliseo chacko and patient's son. Based on patient's condition improving as opposed to deteriorating, patient will return to [facility]. 1 g Rocephin IV given and patient will be given a prescription for Keflex. Departure - Departure Time of Disposition: 12:19 Disposition: DC/Tfer to [facility] Condition: Fair Clinical Impression: UTI, Urinary tract infectious disease, Dehydration CHF (congestive heart failure) Qualifiers: Heart failure type: unspecified Heart failure chronicity: chronic Qualified Code(s): I50.9 - Heart failure, unspecified Atrial fibrillation Qualifiers: Atrial fibrillation type: chronic Qualified Code(s): I48.2 - Chronic atrial fibrillation - Discharge Information Instructions: Urine Culture and Sensitivity Testing, Atrial Fibrillation, Easy- to-Read, Dehydration, Elderly, [id number], Urinary Tract Infection, Adult, [id number] Referrals: Marilu Chawla MD [Primary Care Provider] - Forms: ED Department Discharge Additional Instructions: Return to the emergency department. Symptoms continue or worsen. - My Orders Last 24 Hours: My Active Orders 10/06/18 09:23 CULTURE URINE [RM] Urgent 10/06/18 09:24 Sodium Chloride 0.9% [Saline Flush] 10 ml FLUSH Q8HR PRN Peripheral IV Insertion Adult [OM.PC] Routine 10/06/18 09:25 Peripheral IV Care [RC] . DIRECTED 10/06/18 09:38 EKG 12 Lead [EK] Routine 10/06/18 09:39 EKG Documentation Completion [RC] ASDIRECTED - Assessment/Plan Last 24 Hours: My Active Orders 10/06/18 09:23 CULTURE URINE [RM] Urgent 10/06/18 09:24 Sodium Chloride 0.9% [Saline Flush] 10 ml FLUSH Q8HR PRN Peripheral IV Insertion Adult [OM.PC] Routine 10/06/18 09:25 Peripheral IV Care [RC] . DIRECTED 10/06/18 09:38 EKG 12 Lead [EK] Routine 10/06/18 09:39 EKG Documentation Completion [RC] ASDIRECTED
--- NOTE | 2018-10-06 10:37 | CT ---
[id number] CT/CT Abdomen Pelvis WO IV Exam: CT Abdomen Pelvis WO IV Clinical Data: ABDOMINAL PAIN COMPARISON: CORRELATION IS MADE WITH THE EXAM OF DECEMBER 23, 2005. 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 There is motion artifact. The gallbladder is moderately distended. There are diffuse atheromatous calcifications. There is uncomplicated moderate colonic diverticular disease. There are limitations of the exam without IV contrast. Streak artifact results from the arms not being over the head. The liver and spleen, aorta, adrenals, right kidney, and pancreas otherwise show no acute abnormalities. There is a small cyst in the right kidney. The appendix is not seen. There is no evidence of appendicitis. The uterus and ovaries appear to have been removed. IMPRESSION: MODERATE DISTENTION OF GALLBLADDER. SEVERAL CALCULUS LEFT KIDNEY. LIMITED STUDY. Lorenzo Pennington MD 10/06/18 1036 Thank you for allowing us to participate in the care of your patient.
--- NOTE | 2018-10-06 10:37 | CR ---
[id number] RAD/RAD Chest PA or AP 1V EXAM: SINGLE VIEW CHEST. INDICATION: CHEST PAIN COMPARISON: CORRELATION IS MADE WITH THE EXAM OF APRIL 11, 2018. FINDINGS: The lungs are clear. The cardiac silhouette is enlarged but stable. The aorta is tortuous. IMPRESSION: NO CHANGE SINCE LAST EXAM. Lorenzo Pennington MD 10/06/18 1036 Thank you for allowing us to participate in the care of your patient.
[2018-10-06 11:02] LABS: ANION GAP 17.1 mmol/L (5-15)
[2018-10-06] MEDS ORDERED: cefTRIAXone 1 GM Vial IVPUSH ONE (12:18)
[2018-10-06] MEDS ORDERED: Cephalexin 250 MG Cap PO SCH (12:35)
[2018-10-06 13:45] VITALS: BP 121/78
== END 2018-10-06 13:08 ==
LOC: KA.ED 09:13
DX: N39.0 Urinary tract infection, site not specified (principal); E86.0 Dehydration; I13.0 Hypertensive heart and chronic kidney disease with heart failure and stage 1 through stage 4 chronic kidney disease, or unspecified chronic kidney disease; I50.9 Heart failure, unspecified; N18.9 Chronic kidney disease, unspecified; I48.2 Chronic atrial fibrillation; J44.9 Chronic obstructive pulmonary disease, unspecified; E78.00 Pure hypercholesterolemia, unspecified; Z79.899 Other long term (current) drug therapy; Z79.01 Long term (current) use of anticoagulants
CPT/HCPCS: 36415; 71045; 74176; 80053; 81001; 83880; 85025; 85610; 85730; 87086; 93005; 96374; 99284; 99285-25; A9270-GY; J0696

== ENCOUNTER 2018-10-16 09:20 | Inpatient (IN) | payer MEDICARE, MEDICAID ==
--- NOTE | 2018-10-16 09:57 | EDM.PDOC ---
ED HPI GENERAL MEDICAL PROBLEM - General Stated Complaint: abnormal labs Time Seen by Provider: 10/16/18 09:40 Source of Information: Reports: [facility] Records History Limitations: Reports: Altered Mental Status - History of Present Illness INITIAL COMMENTS - FREE TEXT/NARRATIVE: [facility] with a set of labs and not much else. She appears to have dementia and is nonverbal but opens her eyes and doesn't appear to be in discomfort. She is sitting up with assistance. - Related Data Allergies Allergy/AdvReac Type Severity Reaction Status Date / Time No Known Drug Allergies Allergy none Verified 10/16/18 10:14 Home Meds: Home Meds Ferrous Sulfate 325 mg PO QAM 08/29/16 [History] Nitroglycerin [Nitrostat] 0.4 mg SL Q5M PRN 08/29/16 [History] Ascorbic Acid [Vitamin C] 500 mg PO QAM 09/29/16 [History] Acetaminophen [Tylenol Arthritis] 650 mg PO BID 12/18/16 [History] Metoprolol Tartrate [Lopressor] 100 mg PO BID 12/18/16 [History] Polyethylene Glycol 3350 [MiraLAX] 17 gm PO QAM 12/18/16 [History] Sennosides/Docusate Sodium [Senna Plus Tablet] 1 tab PO BID 06/30/17 [History] Acetaminophen [Tylenol Arthritis] 650 mg PO DAILY PRN 07/03/17 [History] Multivitamins/Min/Ca/FA/Iron [Thera-M] 1 tab PO QAM 07/03/17 [History] Chlorophyllin/Thymol [Chlorophyll] 1 tab PO DAILY 04/11/18 [History] Lisinopril 2.5 mg PO DAILY 04/11/18 [History] Warfarin [Coumadin] 1.25 mg PO ASDIRECTED 04/11/18 [History] Sertraline [Zoloft] 50 mg PO QAM 08/23/18 [History] Diltiazem [Cardizem CD] 180 mg PO QAM 09/21/18 [History] Albuterol/Ipratropium [DuoNeb 3.0-0.5 MG/3 ML] 3 ml INH Q6H PRN #30 neb [Rx] Digoxin 125 mcg PO DAILY #30 tablet 09/25/18 [Rx] Furosemide 20 mg PO QAM #0 09/25/18 [Rx] Cephalexin [Keflex] 500 mg PO TID #21 capsule 10/06/18 [Rx] Fluticasone/Salmeterol [Advair 250-50 Diskus] 1 puff IH BID 10/06/18 [History] Nitroglycerin [Nitro-Dur] 1 each TD DAILY 10/06/18 [History] Nystatin [Nystatin Crm] 15 gm TOP TID 10/06/18 [History] Phytonadione [Vitamin K] 100 mcg PO DAILY 10/06/18 [History] Potassium Chloride [Klor-Con] 20 meq PO DAILY 10/06/18 [History] Past Medical History HEENT History: Reports: Impaired Vision Cardiovascular History: Reports: Afib, Heart Failure, High Cholesterol, Hypertension, [place], Other (See Below) Other Cardiovascular History: ischemic cardiomyopathy Respiratory History: Reports: COPD Gastrointestinal History: Reports: Hemorrhoids Genitourinary History: Reports: Urinary Incontinence, UTI, Recurrent, Other ( See Below) Other Genitourinary History: CKD Stage III 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: Musculoskeletal History: Reports: Arthritis, Osteoarthritis, Other (See Below) Other Musculoskeletal History: BILATERAL SHOULDER PAIN Neurological History: Reports: TIA Psychiatric History: Reports: Dementia Hematologic History: Reports: Anemia, Iron Deficiency, Other (See Below) Other Hematologic History: pt takes iron tablet daily - Past Surgical History Head Surgeries/Procedures: Reports: None HEENT Surgical History: Reports: None Cardiovascular Surgical History: Reports: Carotid Stents Respiratory Surgical History: Reports: None Neurological Surgical History: Reports: None Social & Family History - Family History Family Medical History: Noncontributory - Caffeine Use Caffeine Use: Reports: Coffee, Soda Other Caffeine Use: coffee with meals. leonardo corrales ED ROS GENERAL - Review of Systems Review Of Systems: Unable To Obtain ED EXAM, GENERAL - Physical Exam Exam: See Below Exam Limited By: Other (non-verbal with dementia) Eye Exam: Bilateral Eye: EOMI, Normal Inspection, PERRL Ears: Normal External Exam, Hearing Grossly Normal Nose: Normal Inspection, No Blood Throat/Mouth: Normal Inspection, Normal Lips, No Airway Compromise Head: Atraumatic, Normocephalic Neck: Normal Inspection, Non-Tender, Full Range of Motion Respiratory/Chest: No Respiratory Distress, Lungs Clear, Crackles (bilat bases) Cardiovascular: Regular Rate, Rhythm, No Murmur GI/Abdominal: Soft, Non-Tender, No Distention Back Exam: No: CVA Tenderness (L), CVA Tenderness (R) Neurological: Alert, Other (evidence of significant dementia) Psychiatric: Normal Affect, Normal Mood Skin Exam: Warm, Dry, Intact, Normal Color, No Rash Course - Vital Signs Last Recorded V/S: Last Vital Signs Temp 98.2 F 10/16/18 10:15 Pulse 58 L 10/16/18 10:15 Resp 20 10/16/18 10:15 BP 113/46 L 10/16/18 10:15 Pulse Ox 93 L 10/16/18 10:15 - Orders/Labs/Meds Orders: Active Orders 24 hr Category Date Time Status Admission Status [Patient Status] [ADT] Routine ADT 10/16/18 11:31 Ordered PROCALCITONIN [REF] Stat Lab 10/16/18 11:45 Received Sodium Chloride 0.9% [Normal Saline] 500 ml Med 10/16/18 12:00 Active IV .BOLUS Sodium Chloride 0.9% [Normal Saline] 500 ml Med 10/16/18 12:00 Active IV ASDIRECTED Medication Orders Sodium Chloride (Normal Saline) 500 mls @ 999 mls/hr IV .BOLUS AGATHA Last Admin: 10/16/18 10:50 Dose: 999 mls/hr Sodium Chloride (Normal Saline) 500 mls @ 100 mls/hr IV ASDIRECTED AGATHA Last Admin: 10/16/18 11:21 Dose: 100 mls/hr Labs: Laboratory Tests 10/16/18 10/16/18 10/16/18 Range/Units 10:30 11:45 11:45 WBC 11.63 H (5.00-10.00) 10^3/uL RBC 4.26 (3.80-5.50) 10^6/uL Hgb 12.3 D (12.0-16.0) g/dL Hct 37.6 (37.0-47.0) % MCV 88.3 (82.0-92.0) fL MCH 28.9 (27.0-31.0) pg MCHC 32.7 (32.0-36.0) g/dL RDW 18.3 H (11.5-14.5) % Plt Count 185 D (150-400) 10^3/uL MPV 12.3 H (7.4-10.4) fL Immature Gran % (Auto) 0.3 (0.0-5.0) % Neut % (Auto) 82.5 H (50.0-70.0) % Lymph % (Auto) 8.2 L (20.0-40.0) % [place] % (Auto) 6.0 (2.0-8.0) % Eos % (Auto) 2.6 (1.0-3.0) % Baso % (Auto) 0.4 (0.0-1.0) % Immature Gran # (Auto) 0.04 (0.00-0.50) 10^3/uL Neut # (Auto) 9.59 H (2.50-7.00) 10^3/uL Lymph # (Auto) 0.95 L (1.00-4.00) 10^3/uL [place] # (Auto) 0.70 (0.10-0.80) 10^3/uL Eos # (Auto) 0.30 (0.10-0.30) 10^3/uL Baso # (Auto) 0.05 (0.00-0.10) 10^3/uL Elliptocytes Few Acanthocytes (Spur) Few Sodium 143 (136-145) mmol/L Potassium 5.0 (3.3-5.3) mmol/L Chloride 110 (98-115) mmol/L Carbon Dioxide 15.4 L (21.0-32.0) mmol/L Anion Gap 22.6 H (5-15) mmol/L BUN 68 H* D (6-25) mg/dL Creatinine 3.67 H D (0.51-1.17) mg/dL Est Cr Clr Drug Dosing 9.68 mL/min Estimated GFR (MDRD) 12 mL/min Glucose 108 H (75 - 99) mg/dL Calcium 7.9 L (8.7-10.3) mg/dL B-Natriuretic Peptide 1600 H (0-100) pg/mL Specimen Type Urinblad Urine Color Light yellow (YELLOW) Urine Appearance Turbid H (CLEAR) Urine pH 5.0 (5.0-9.0) Ur Specific [place] 1.015 (1.005-1.030) Urine Protein 30 H (NEGATIVE) mg/dL Urine Glucose (UA) Negative (NEGATIVE) mg/dL Urine Ketones Negative (NEGATIVE) mg/dL Urine Occult Blood Moderate H (NEGATIVE) Urine Nitrite Negative (NEGATIVE) Urine Bilirubin Negative (NEGATIVE) Urine Urobilinogen 0.2 (0.2-1.0) E.U./dL Ur Leukocyte Esterase Large H (NEGATIVE) Urine RBC 10-20 H (0-5) /HPF Urine WBC Packed (0-5) /HPF Ur Epithelial Cells Few /LPF Urine Bacteria Moderate H (NONE TO FEW) /HPF Digoxin 1.27 (0.30-2.00) ng/mL Meds: Medications Generic Name Dose Route Start Last Admin Trade Name Freq PRN Reason Stop Dose Admin Sodium Chloride 500 mls @ 999 mls/hr 10/16/18 12:00 10/16/18 10:50 Normal Saline IV 999 mls/hr .BOLUS AGATHA Administration Sodium Chloride 500 mls @ 100 mls/hr 10/16/18 12:00 10/16/18 11:21 Normal Saline IV 100 mls/hr ASDIRECTED AGATHA Administration Discontinued Medications Generic Name Dose Route Start Last Admin Trade Name Freq PRN Reason Stop Dose Admin Ceftriaxone Sodium 1 gm 10/16/18 12:46 10/16/18 13:40 Rocephin IVPUSH 10/16/18 12:47 1 gm ONETIME ONE Administration Sodium Chloride 1,000 mls @ 999 mls/hr 10/16/18 10:30 10/16/18 10:48 Normal Saline IV 10/16/18 11:30 999 mls/hr .BOLUS ONE Administration - Re-Assessments/Exams Free Text/Narrative Re-Assessment/Exam: 10/16/18 10:41 I visited with JOHNIE Arnett who informed me that patient does have significant dementia at baseline and is mostly non-verbal. She had been admitted with suspected early pneumonia on 09/21 with WBC of 5.6; and Creatinine 0.87 on 10/02. With WBC 12.0 and Creatinine 3.95 today she wanted her evaluated in ER; she didn't see patient today herself but talked with NH. 10/16/18 13:00 CXR shows LLL infiltrate. Labs show WBC 11.6, Insecticide Supervisor 3.67, BUN 68, GFR 12. These kidney functions are worse than prior but not drastically on comparison. Have discussed case with Abran Urrutia NP who is determining admitting here versus transferring to [place] where she can get dialysis IP as option. 10/16/18 13:51 Abran accepted for admission. 10/16/18 15:13 Patient code status is DNR/DNI, shock one time if shockable rhythm. Departure - Departure Time of Disposition: 12:51 Disposition: Admitted As Inpatient 64 Condition: Fair Clinical Impression: UTI (urinary tract infection), bacterial, HCAP (healthcare-associated pneumonia ) - Discharge Information - My Orders Last 24 Hours: My Active Orders 10/16/18 11:31 Admission Status [Patient Status] [ADT] Routine 10/16/18 11:45 PROCALCITONIN [REF] Stat 10/16/18 12:00 Sodium Chloride 0.9% [Normal Saline] 500 ml IV .BOLUS Sodium Chloride 0.9% [Normal Saline] 500 ml IV ASDIRECTED - Assessment/Plan Last 24 Hours: My Active Orders 10/16/18 11:31 Admission Status [Patient Status] [ADT] Routine 10/16/18 11:45 PROCALCITONIN [REF] Stat 10/16/18 12:00 Sodium Chloride 0.9% [Normal Saline] 500 ml IV .BOLUS Sodium Chloride 0.9% [Normal Saline] 500 ml IV ASDIRECTED
[2018-10-16] MEDS ORDERED: Sodium Chloride 0.9% 1,000 ML IV ONE (10:30)
--- NOTE | 2018-10-16 10:57 | CR ---
[id number] RAD/RAD Chest PA or AP 1V EXAM: SINGLE VIEW CHEST. INDICATION: ELEVATED WHITE BLOOD CELL COUNT. CRACKLES ON AUSCULTATION COMPARISON: CORRELATION IS MADE WITH THE EXAM OF OCTOBER 06, 2018. FINDINGS: There appears to be an infiltrate at the left lung base. The bones are sclerotic. The cardiomediastinal contour is stable. IMPRESSION: INFILTRATE LEFT BASE SUSPECTED. CONSIDER PA AND LATERAL CHEST Lorenzo Pennington MD 10/16/18 [id number] Thank you for allowing us to participate in the care of your patient.
[2018-10-16] MEDS ORDERED: Sodium Chloride 0.9% 500 ML IV SCH ×2 (12:00)
[2018-10-16 12:21] LABS: ANION GAP 22.6 mmol/L (5-15)
[2018-10-16] MEDS ORDERED: cefTRIAXone 1 GM Vial IVPUSH ONE (12:46)
[2018-10-16] MEDS ORDERED: Albuterol/Ipratropium 3.0-0.5 MG/3 ML Neb Soln INH PRN (17:56)
[2018-10-16] MEDS ORDERED: Acetaminophen 650 MG Tab.ER PO PRN (17:56)
[2018-10-16] MEDS ORDERED: Non-Formulary Medication 1 Each (Warfarin 0.5 MG) PO SCH (18:00)
[2018-10-16] MEDS ORDERED: Nitroglycerin 0.4 MG Tab.SL SL PRN (19:25)
[2018-10-16] MEDS: Lactated Ringers 1,000 ML IV SCH (19:34)
[2018-10-16] MEDS: Nystatin Crm 15 GM Tube TOP SCH (20:33)
[2018-10-16] MEDS: Metoprolol Tartrate 50 MG Tab PO SCH (20:34)
[2018-10-16] MEDS: Acetaminophen 650 MG Tab.ER PO SCH (20:34)
[2018-10-16] MEDS: Fluticasone/Salmeterol 250-50 MCG Inhalation Powder 14/Diskus INH SCH ×2 (20:36→20:43)
[2018-10-17] MEDS ORDERED: Nitroglycerin 0.4 MG/HR Transdermal Patch TRDERM SCH (07:00)
[2018-10-17] MEDS ORDERED: NITROGLYCERIN 0.6 MG/HR TRDERM SCH (07:00)
[2018-10-17] MEDS ORDERED: Omeprazole 20 MG Cap.CR PO SCH (07:30)
[2018-10-17 08:07] LABS: ANION GAP 20.2 mmol/L (5-15)
[2018-10-17] MEDS ORDERED: Lisinopril 5 MG Tab PO SCH (09:00)
[2018-10-17] MEDS ORDERED: Ascorbic Acid 500 MG Tab PO SCH (09:00)
[2018-10-17] MEDS: Fluticasone/Salmeterol 250-50 MCG Inhalation Powder 14/Diskus INH SCH ×2 (09:01→20:27)
[2018-10-17] MEDS ORDERED: Nitroglycerin 0.2 MG/HR Transdermal Patch TRDERM SCH (09:16)
[2018-10-17] MEDS: Acetaminophen 650 MG Tab.ER PO SCH ×2 (09:18→20:25)
[2018-10-17] MEDS: Ferrous Sulfate 325 MG Tab PO SCH (09:19)
[2018-10-17] MEDS: Sertraline 50 MG Tab PO SCH (09:19)
[2018-10-17] MEDS: Diltiazem 180 MG Cap.CD PO SCH (09:20)
[2018-10-17] MEDS: Metoprolol Tartrate 50 MG Tab PO SCH ×2 (09:22→20:25)
[2018-10-17] MEDS: Nystatin Crm 15 GM Tube TOP SCH ×3 (09:22→20:27)
[2018-10-17] MEDS: Phytonadione 100 MCG Tab PO SCH (09:33)
--- NOTE | 2018-10-17 10:09 | PCM.HP ---
H&P History of Present Illness - General Date of Service: 10/17/18 Admit Problem/Dx: Admission Diagnosis/Problem Admission Diagnosis/Problem UTI (urinary tract infection) due to urinary indwelling catheter - Related Data Allergies/Adverse Reactions: Allergies Allergy/AdvReac Type Severity Reaction Status Date / Time No Known Drug Allergies Allergy none Verified 10/16/18 10:14 Home Medications: Home Meds Ferrous Sulfate 325 mg PO QAM 08/29/16 [History] Nitroglycerin [Nitrostat] 0.4 mg SL Q5M PRN 08/29/16 [History] Ascorbic Acid [Vitamin C] 500 mg PO QAM 09/29/16 [History] Acetaminophen [Tylenol Arthritis] 650 mg PO BID 12/18/16 [History] Metoprolol Tartrate [Lopressor] 100 mg PO BID 12/18/16 [History] Polyethylene Glycol 3350 [MiraLAX] 17 gm PO QAM 12/18/16 [History] Sennosides/Docusate Sodium [Senna Plus Tablet] 1 tab PO BID PRN 06/30/17 [ History] Acetaminophen [Tylenol Arthritis] 650 mg PO DAILY PRN 07/03/17 [History] Multivitamins/Min/Ca/FA/Iron [Thera-M] 1 tab PO QAM 07/03/17 [History] Chlorophyllin/Thymol [Chlorophyll] 1 tab PO DAILY 04/11/18 [History] Lisinopril 2.5 mg PO DAILY 04/11/18 [History] Sertraline [Zoloft] 50 mg PO QAM 08/23/18 [History] Diltiazem [Cardizem CD] 180 mg PO QAM 09/21/18 [History] Albuterol/Ipratropium [DuoNeb 3.0-0.5 MG/3 ML] 3 ml INH Q6H PRN #30 neb [Rx] Digoxin 125 mcg PO DAILY #30 tablet 09/25/18 [Rx] Furosemide 20 mg PO QAM #0 09/25/18 [Rx] Fluticasone/Salmeterol [Advair 250-50 Diskus] 1 puff IH BID 10/06/18 [History] Nitroglycerin [Nitro-Dur] 1 each TD DAILY 10/06/18 [History] Nystatin [Nystatin Crm] 1 applic TOP TID 10/06/18 [History] Phytonadione [Vitamin K] 200 mcg PO DAILY 10/06/18 [History] Potassium Chloride [Klor-Con] 20 meq PO DAILY 10/06/18 [History] Warfarin [Coumadin] 0.5 mg PO SUTUWETHSA 10/16/18 [History] Past Medical History HEENT History: Reports: Impaired Vision Cardiovascular History: Reports: Afib, Heart Failure, High Cholesterol, Hypertension, DE, Other (See Below) Other Cardiovascular History: ischemic cardiomyopathy Respiratory History: Reports: COPD Gastrointestinal History: Reports: Hemorrhoids Genitourinary History: Reports: Urinary Incontinence, UTI, Recurrent, Other ( See Below) Other Genitourinary History: CKD Stage III WASTE HAND History: Reports: Musculoskeletal History: Reports: Arthritis, Osteoarthritis, Other (See Below) Other Musculoskeletal History: BILATERAL SHOULDER PAIN Neurological History: Reports: TIA Psychiatric History: Reports: Dementia Hematologic History: Reports: Anemia, Iron Deficiency, Other (See Below) Other Hematologic History: pt takes iron tablet daily - Past Surgical History Head Surgeries/Procedures: Reports: None HEENT Surgical History: Reports: None Cardiovascular Surgical History: Reports: Carotid Stents Respiratory Surgical History: Reports: None Neurological Surgical History: Reports: None Social & Family History - Tobacco Use Smoking Status *Q: Unknown Ever Smoked Second Hand Smoke Exposure: No - Caffeine Use Caffeine Use: Reports: Coffee, Soda Other Caffeine Use: coffee with meals. leonardo san and dr. corrales H&P Review of Systems - Review of Systems: Review Of Systems: See Below Free Text/Narrative: Patient with limited communicative skills at this time. Unable to obtain complete ROS Exam - Exam Exam: See Below - Vital Signs Vital Signs: Last Vital Signs Temp 96.4 F 10/17/18 06:49 Pulse 58 L 10/17/18 06:49 Resp 20 10/17/18 06:49 BP 131/69 10/17/18 06:49 Pulse Ox 98 10/17/18 06:49 Weight: 161 lb 6.4 oz - Patient Data Lab Results Last 24 hrs: Laboratory Results - last 24 hr 10/16/18 10/16/18 10/16/18 Range/Units 10:30 11:45 11:45 WBC 11.63 H (5.00-10.00) 10^3/uL RBC 4.26 (3.80-5.50) 10^6/uL Hgb 12.3 D (12.0-16.0) g/dL Hct 37.6 (37.0-47.0) % MCV 88.3 (82.0-92.0) fL MCH 28.9 (27.0-31.0) pg MCHC 32.7 (32.0-36.0) g/dL RDW 18.3 H (11.5-14.5) % Plt Count 185 D (150-400) 10^3/uL MPV 12.3 H (7.4-10.4) fL Immature Gran % (Auto) 0.3 (0.0-5.0) % Neut % (Auto) 82.5 H (50.0-70.0) % Lymph % (Auto) 8.2 L (20.0-40.0) % Brule % (Auto) 6.0 (2.0-8.0) % Eos % (Auto) 2.6 (1.0-3.0) % Baso % (Auto) 0.4 (0.0-1.0) % Immature Gran # (Auto) 0.04 (0.00-0.50) 10^3/uL Neut # (Auto) 9.59 H (2.50-7.00) 10^3/uL Lymph # (Auto) 0.95 L (1.00-4.00) 10^3/uL Brule # (Auto) 0.70 (0.10-0.80) 10^3/uL Eos # (Auto) 0.30 (0.10-0.30) 10^3/uL Baso # (Auto) 0.05 (0.00-0.10) 10^3/uL Elliptocytes Few Acanthocytes (Spur) Few PT INR (0.9-1.1) Sodium 143 (136-145) mmol/L Potassium 5.0 (3.3-5.3) mmol/L Chloride 110 (98-115) mmol/L Carbon Dioxide 15.4 L (21.0-32.0) mmol/L Anion Gap 22.6 H (5-15) mmol/L BUN 68 H* D (6-25) mg/dL Creatinine 3.67 H D (0.51-1.17) mg/dL Est Cr Clr Drug Dosing 9.68 mL/min Estimated GFR (MDRD) 12 mL/min Glucose 108 H (75 - 99) mg/dL Calcium 7.9 L (8.7-10.3) mg/dL C-Reactive Protein (0.0-0.9) mg/dL B-Natriuretic Peptide 1600 H (0-100) pg/mL Procalcitonin (<0.10) ng/mL Specimen Type Urinblad Urine Color Light yellow (YELLOW) Urine Appearance Turbid H (CLEAR) Urine pH 5.0 (5.0-9.0) Ur Specific [place] 1.015 (1.005-1.030) Urine Protein 30 H (NEGATIVE) mg/dL Urine Glucose (UA) Negative (NEGATIVE) mg/dL Urine Ketones Negative (NEGATIVE) mg/dL Urine Occult Blood Moderate H (NEGATIVE) Urine Nitrite Negative (NEGATIVE) Urine Bilirubin Negative (NEGATIVE) Urine Urobilinogen 0.2 (0.2-1.0) E.U./dL Ur Leukocyte Esterase Large H (NEGATIVE) Urine RBC 10-20 H (0-5) /HPF Urine WBC Packed (0-5) /HPF Ur Epithelial Cells Few /LPF Urine Bacteria Moderate H (NONE TO FEW) /HPF Digoxin 1.27 (0.30-2.00) ng/mL 10/16/18 10/16/18 10/17/18 Range/Units 11:45 19:45 07:20 WBC (5.00-10.00) 10^3/uL RBC (3.80-5.50) 10^6/uL Hgb (12.0-16.0) g/dL Hct (37.0-47.0) % MCV (82.0-92.0) fL MCH (27.0-31.0) pg MCHC (32.0-36.0) g/dL RDW (11.5-14.5) % Plt Count (150-400) 10^3/uL MPV (7.4-10.4) fL Immature Gran % (Auto) (0.0-5.0) % Neut % (Auto) (50.0-70.0) % Lymph % (Auto) (20.0-40.0) % Brule % (Auto) (2.0-8.0) % Eos % (Auto) (1.0-3.0) % Baso % (Auto) (0.0-1.0) % Immature Gran # (Auto) (0.00-0.50) 10^3/uL Neut # (Auto) (2.50-7.00) 10^3/uL Lymph # (Auto) (1.00-4.00) 10^3/uL Brule # (Auto) (0.10-0.80) 10^3/uL Eos # (Auto) (0.10-0.30) 10^3/uL Baso # (Auto) (0.00-0.10) 10^3/uL Elliptocytes Acanthocytes (Spur) PT INR (0.9-1.1) Sodium 140 (136-145) mmol/L Potassium 4.4 (3.3-5.3) mmol/L Chloride 110 (98-115) mmol/L Carbon Dioxide 14.2 L (21.0-32.0) mmol/L Anion Gap 20.2 H (5-15) mmol/L BUN 59 H* (6-25) mg/dL Creatinine 3.21 H (0.51-1.17) mg/dL Est Cr Clr Drug Dosing 11.06 mL/min Estimated GFR (MDRD) 14 mL/min Glucose 80 (75 - 99) mg/dL Calcium 7.6 L (8.7-10.3) mg/dL C-Reactive Protein 6.5 H (0.0-0.9) mg/dL B-Natriuretic Peptide (0-100) pg/mL Procalcitonin 0.46 H (<0.10) ng/mL Specimen Type Urine Color (YELLOW) Urine Appearance (CLEAR) Urine pH (5.0-9.0) Ur Specific [place] (1.005-1.030) Urine Protein (NEGATIVE) mg/dL Urine Glucose (UA) (NEGATIVE) mg/dL Urine Ketones (NEGATIVE) mg/dL Urine Occult Blood (NEGATIVE) Urine Nitrite (NEGATIVE) Urine Bilirubin (NEGATIVE) Urine Urobilinogen (0.2-1.0) E.U./dL Ur Leukocyte Esterase (NEGATIVE) Urine RBC (0-5) /HPF Urine WBC (0-5) /HPF Ur Epithelial Cells /LPF Urine Bacteria (NONE TO FEW) /HPF Digoxin (0.30-2.00) ng/mL 10/17/18 Range/Units 07:40 WBC (5.00-10.00) 10^3/uL RBC (3.80-5.50) 10^6/uL Hgb (12.0-16.0) g/dL Hct (37.0-47.0) % MCV (82.0-92.0) fL MCH (27.0-31.0) pg MCHC (32.0-36.0) g/dL RDW (11.5-14.5) % Plt Count (150-400) 10^3/uL MPV (7.4-10.4) fL Immature Gran % (Auto) (0.0-5.0) % Neut % (Auto) (50.0-70.0) % Lymph % (Auto) (20.0-40.0) % Brule % (Auto) (2.0-8.0) % Eos % (Auto) (1.0-3.0) % Baso % (Auto) (0.0-1.0) % Immature Gran # (Auto) (0.00-0.50) 10^3/uL Neut # (Auto) (2.50-7.00) 10^3/uL Lymph # (Auto) (1.00-4.00) 10^3/uL Brule # (Auto) (0.10-0.80) 10^3/uL Eos # (Auto) (0.10-0.30) 10^3/uL Baso # (Auto) (0.00-0.10) 10^3/uL Elliptocytes Acanthocytes (Spur) PT TNP INR 1.0 (0.9-1.1) Sodium (136-145) mmol/L Potassium (3.3-5.3) mmol/L Chloride (98-115) mmol/L Carbon Dioxide (21.0-32.0) mmol/L Anion Gap (5-15) mmol/L BUN (6-25) mg/dL Creatinine (0.51-1.17) mg/dL Est Cr Clr Drug Dosing mL/min Estimated GFR (MDRD) mL/min Glucose (75 - 99) mg/dL Calcium (8.7-10.3) mg/dL C-Reactive Protein (0.0-0.9) mg/dL B-Natriuretic Peptide (0-100) pg/mL Procalcitonin (<0.10) ng/mL Specimen Type Urine Color (YELLOW) Urine Appearance (CLEAR) Urine pH (5.0-9.0) Ur Specific [place] (1.005-1.030) Urine Protein (NEGATIVE) mg/dL Urine Glucose (UA) (NEGATIVE) mg/dL Urine Ketones (NEGATIVE) mg/dL Urine Occult Blood (NEGATIVE) Urine Nitrite (NEGATIVE) Urine Bilirubin (NEGATIVE) Urine Urobilinogen (0.2-1.0) E.U./dL Ur Leukocyte Esterase (NEGATIVE) Urine RBC (0-5) /HPF Urine WBC (0-5) /HPF Ur Epithelial Cells /LPF Urine Bacteria (NONE TO FEW) /HPF Digoxin (0.30-2.00) ng/mL Result Diagrams: 10/16/18 11:45 10/17/18 07:20 Problem List Initiated/Reviewed/Updated: Yes Orders Last 24hrs: Active Orders 24 hr Category Date Time Status Admission Status [Patient Status] [ADT] Routine ADT 10/16/18 11:31 Ordered Carvajal Catheter Insertion [Insert Urinary Catheter] [OM. Care 10/16/18 17:15 Ordered PC] Q24H Urinary Catheter Assessment [RC] 0900,2100 Care 10/16/18 17:10 Active Vital Signs [RC] 0300,0700,1100,1500,1900,2300 Care 10/17/18 06:01 Active CULTURE URINE [RM] Stat Lab 10/16/18 10:30 Received Acetaminophen [Tylenol Arthritis Pain] Med 10/16/18 21:00 Active 650 mg PO BID Acetaminophen [Tylenol Arthritis Pain] Med 10/16/18 17:56 Active 650 mg PO DAILY PRN Albuterol/Ipratropium [DuoNeb 3.0-0.5 MG/3 ML] Med 10/16/18 17:56 Active 3 ml INH Q6H PRN Ascorbic Acid [Vitamin C] Med 10/17/18 09:00 Active 500 mg PO QAM Digoxin [Lanoxin] Med 10/17/18 18:00 Active 125 mcg PO DAILY@1800 Diltiazem [Cardizem CD] Med 10/17/18 09:00 Active 180 mg PO QAM Docusate Sodium/Sennosides [Senna Plus] Med 10/16/18 17:56 Active 1 tab PO BID PRN Ferrous Sulfate Med 10/17/18 09:00 Active 325 mg PO QAM Fluticasone/Salmeterol [Advair Diskus 250-50] Med 10/16/18 21:00 Active 1 puff INH BID Lactated Ringers [Ringers, Lactated] 1,000 ml Med 10/16/18 19:30 Active IV ASDIRECTED Lisinopril [Prinivil] Med 10/17/18 09:00 Active 2.5 mg PO DAILY Metoprolol Tartrate [Lopressor] Med 10/16/18 21:00 Active 100 mg PO BID Nitroglycerin [Nitro-Dur 0.6 MG/Hr] Med 10/17/18 07:00 Active 0.6 mg TRDERM DAILY@0700 Nitroglycerin [Nitrostat] Med 10/16/18 19:25 Active 0.4 mg SL Q5M PRN Nystatin [Nystatin Crm] Med 10/16/18 21:00 Active 0 gm TOP TID Phytonadione [Vitamin K] Med 10/17/18 09:00 Active 200 mcg PO DAILY Remove Patch Med 10/16/18 19:00 Active 1 ea TRDERM DAILY@1900 Sertraline [Zoloft] Med 10/17/18 09:00 Active 50 mg PO QAM Warfarin [Coumadin] Med 10/16/18 19:30 Active 0.5 mg PO SuTuWeThSa@1800 Code Status [Resuscitation Status] Routine Resus Stat 10/16/18 19:10 Ordered Medication Orders Acetaminophen (Tylenol Arthritis Pain) 650 mg PO BID AGATHA Last Admin: 10/16/18 20:34 Dose: 650 mg Acetaminophen (Tylenol Arthritis Pain) 650 mg PO DAILY PRN PRN Reason: Pain Albuterol/Ipratropium (Duoneb 3.0-0.5 Mg/3 Ml) 3 ml INH Q6H PRN PRN Reason: Shortness of Breath Ascorbic Acid (Vitamin C) 500 mg PO QAM AGATHA Digoxin (Lanoxin) 125 mcg PO DAILY@1800 AG[facility]HA Diltiazem HCl (Cardizem Cd) 180 mg PO QAM AGATHA Ferrous Sulfate (Ferrous Sulfate) 325 mg PO QAM [facility] Lactated Ringer's (Ringers, Lactated) 1,000 mls @ 75 mls/hr IV ASDIRECTED [facility] Last Admin: 10/16/18 19:34 Dose: 75 mls/hr Lisinopril (Prinivil) 2.5 mg PO DAILY [facility] Metoprolol Tartrate (Lopressor) 100 mg PO BID [facility] Last Admin: 10/16/18 20:34 Dose: 100 mg Miscellaneous Information (Remove Patch) 1 ea TRDERM DAILY@1900 [facility] Last Admin: 10/16/18 19:36 Dose: 1 ea Nitroglycerin (Nitro-Dur 0.6 Mg/Hr) 0.6 mg TRDERM DAILY@0700 [facility] Nitroglycerin (Nitrostat) 0.4 mg SL Q5M PRN PRN Reason: Chest Pain Nystatin (Nystatin Crm) 0 gm TOP TID [facility] Last Admin: 10/16/18 20:33 Dose: 1 applic Phytonadione (Vitamin K) 200 mcg PO DAILY [facility] Fluticasone/Salmeterol (Advair Diskus 250-50) 1 puff INH BID [facility] Last Admin: 10/16/18 20:43 Dose: Not Given Senna/Docusate Sodium (Senna Plus) 1 tab PO BID PRN PRN Reason: Constipation Sertraline HCl (Zoloft) 50 mg PO QAM [facility] Warfarin Sodium (Coumadin) 0.5 mg PO SuTuWeThSa@1800 [facility] Last Admin: 10/16/18 19:34 Dose: 0.5 mg Assessment/Plan Comment:: HISTORY OF PRESENT ILLNESS 83-year-old female who has had recent multiple admissions to the hospital was admitted last night through the ED due to elevated BUN and creatinine level. The provider at the [facility] who sari routine labs in due to elevating creatinine level sent patient to the emergency department for further evaluation. Patient has very limited communicative skills. She does have history of CKD stage 3: However October 02 creatinine 0.8, October 16 creatinine 3.9 Pertinent ED findings BUN 68/creatinine 3.67 (creatinine 3.9 on October 16) BNP 1600 (much lower than recent baseline) WBC 11.6/neutrophilia 82% Primary hospital problems Acute kidney injury, prerenal, likely diuretic/nephrotoxin induced/dehydration Urinary tract infection, Rocephin Infiltrate, left lung base, suspect viral Chronic conditions -Atrial fibrillation, permanent, CVR, [id number] 5, rate controlled with digoxin , subtherapeutic INR 1.0 on admission. -HFrEF: EF 25% on echocardiogram, holding lisinopril due to ALEC, beta marci, good map -Ischemic heart disease/CAD Imdur recently added 2/2 ischemia ECG recent NSTEMI , 2/2 demand ischemia, -HTN: Continue beta marci, -HLD, recently discontinued statin therapy. -COPD, advair 250-50 mcg BID. -Pulmonary hypertension -Depression, stable on Zoloft Disposition/MDM/overall plan --Meets inpatient status due to ALEC, --hold diuretics, MARITZA inhibitor, --changed and decreased IV fluids last night, --monitor for fluid overload status however at this time significant prerenal condition. --Strict intakes and output with dependent indwelling Carvajal catheter --adjust renal dose medications including digoxin, --Add H2 2/2 ALEC --Pharmacy C/S --Assess urine creatinine/sodium, other labs in a.m. --Loading dose Coumadin today, hold vitamin K today --Khanh Lelbanc/FCO on phone today regarding DNR status. Son desires no CPR, no chest compressions, no intubation, however desires 1x defibrillation if shockable rhythm, no transfer.
[2018-10-17] MEDS: Lactated Ringers 1,000 ML IV SCH (11:13)
[2018-10-17] MEDS: Enoxaparin 30 MG/0.3 ML Syringe SUBCUT SCH (11:40)
[2018-10-17] MEDS: cefTRIAXone 1 GM Vial IVPUSH SCH (11:40)
[2018-10-17] MEDS: Nitroglycerin 0.2 MG/HR Transdermal Patch TRDERM SCH (11:46)
[2018-10-17] MEDS ORDERED: Digoxin 125 MCG Tab PO SCH ×2 (18:00)
[2018-10-17] MEDS ORDERED: Warfarin 2.5 MG Tab PO ONE (18:00)
[2018-10-17] MEDS: Digoxin 125 MCG Tab PO SCH (18:15)
[2018-10-18] MEDS: Lactated Ringers 1,000 ML IV SCH (00:43)
[2018-10-18] MEDS: Nitroglycerin 0.2 MG/HR Transdermal Patch TRDERM SCH (06:34)
[2018-10-18 07:48] LABS: ANION GAP 18.8 mmol/L (5-15)
[2018-10-18] MEDS: Enoxaparin 30 MG/0.3 ML Syringe SUBCUT SCH (08:33)
[2018-10-18] MEDS: Acetaminophen 650 MG Tab.ER PO SCH ×2 (08:36→20:08)
[2018-10-18] MEDS: Diltiazem 180 MG Cap.CD PO SCH (08:37)
[2018-10-18] MEDS: Metoprolol Tartrate 50 MG Tab PO SCH ×2 (08:37→20:09)
[2018-10-18] MEDS: Ferrous Sulfate 325 MG Tab PO SCH (08:37)
[2018-10-18] MEDS: Sertraline 50 MG Tab PO SCH (08:37)
[2018-10-18] MEDS: Nystatin Crm 15 GM Tube TOP SCH (08:38)
[2018-10-18] MEDS: Fluticasone/Salmeterol 250-50 MCG Inhalation Powder 14/Diskus INH SCH (08:50)
[2018-10-18] MEDS: Phytonadione 100 MCG Tab PO SCH (09:25)
--- NOTE | 2018-10-18 09:46 | PCM.PN ---
- General Info Date of Service: 10/18/18 Admission Dx/Problem (Free Text): Admission Diagnosis/Problem Admission Diagnosis/Problem UTI (urinary tract infection) due to urinary indwelling catheter Functional Status: Reports: Pain Controlled. Denies: Tolerating Diet - Review of Systems General: Reports: Weakness HEENT: Denies: Dysphasia Pulmonary: Denies: Cough Cardiovascular: Reports: Edema. Denies: Chest Pain Genitourinary: Reports: Other Psychiatric: Reports: Confusion - Patient Data Vitals - Most Recent: Last Vital Signs Temp 98.7 F 10/18/18 06:14 Pulse 68 10/18/18 08:37 Resp 18 10/18/18 06:14 BP 127/63 10/18/18 08:37 Pulse Ox 98 10/18/18 06:14 Weight - Most Recent: 164 lb 2 oz I&O - Last 24 Hours: Intake & Output 10/17/18 10/18/18 10/18/18 22:59 06:59 14:59 Intake Total 545 650 Output Total 200 200 Balance 345 450 Lab Results Last 24 Hours: Laboratory Results - last 24 hr 10/17/18 10/18/18 10/18/18 Range/Units 20:40 07:15 07:15 PT TNP INR 1.1 (0.9-1.1) Sodium 142 (136-145) mmol/L Potassium 4.0 (3.3-5.3) mmol/L Chloride 112 (98-115) mmol/L Carbon Dioxide 15.2 L (21.0-32.0) mmol/L Anion Gap 18.8 H (5-15) mmol/L BUN 56 H* (6-25) mg/dL Creatinine 3.01 H (0.51-1.17) mg/dL Est Cr Clr Drug Dosing 11.80 mL/min Estimated GFR (MDRD) 15 mL/min Glucose 83 (75 - 99) mg/dL Calcium 7.7 L (8.7-10.3) mg/dL Ur Random Sodium 56.0 (40.0-220.0) mmol/L [place] Results Last 24 Hours: Microbiology 10/16/18 10:30 Urine Culture - Final Urine, Catheterized NO GROWTH AFTER 2 DAYS Med Orders - Current: Current Medications Acetaminophen (Tylenol Arthritis Pain) 650 mg PO BID AGATHA Last Admin: 10/18/18 08:36 Dose: 650 mg Acetaminophen (Tylenol Arthritis Pain) 650 mg PO DAILY PRN PRN Reason: Pain Albuterol/Ipratropium (Duoneb 3.0-0.5 Mg/3 Ml) 3 ml INH Q6H PRN PRN Reason: Shortness of Breath Ceftriaxone Sodium (Rocephin) 1 gm IVPUSH Q24H [facility] Last Admin: 10/17/18 11:40 Dose: 1 gm Digoxin (Lanoxin) 62.5 mcg PO DAILY@1800 [facility] Last Admin: 10/17/18 18:15 Dose: 62.5 mcg Diltiazem HCl (Cardizem Cd) 180 mg PO QAM [facility] Last Admin: 10/18/18 08:37 Dose: 180 mg Enoxaparin Sodium (Lovenox) 30 mg SUBCUT DAILY [facility] Last Admin: 10/18/18 08:33 Dose: 30 mg Ferrous Sulfate (Ferrous Sulfate) 325 mg PO QAM [facility] Last Admin: 10/18/18 08:37 Dose: 325 mg Lactated Ringer's (Ringers, Lactated) 1,000 mls @ 75 mls/hr IV ASDIRECTED [facility] Last Admin: 10/18/18 00:43 Dose: 75 mls/hr Lisinopril (Prinivil) 2.5 mg PO DAILY [facility] Last Admin: 10/17/18 09:19 Dose: 2.5 mg Metoprolol Tartrate (Lopressor) 100 mg PO BID [facility] Last Admin: 10/18/18 08:37 Dose: 100 mg Miscellaneous Information (Remove Patch) 1 ea TRDERM DAILY@1900 [facility] Last Admin: 10/17/18 18:22 Dose: 1 ea Nitroglycerin (Nitrostat) 0.4 mg SL Q5M PRN PRN Reason: Chest Pain Nitroglycerin (Nitro-Dur 0.2 Mg/Hr) 0.2 mg TRDERM 0700 [facility] Last Admin: 10/18/18 06:34 Dose: 0.2 mg Nystatin (Nystatin Crm) 0 gm TOP TID [facility] Last Admin: 10/18/18 08:38 Dose: 1 applic Phytonadione (Vitamin K) 200 mcg PO DAILY [facility] Last Admin: 10/18/18 09:25 Dose: Not Given Ranitidine HCl (Zantac) 150 mg PO DAILY [facility] Last Admin: 10/18/18 08:36 Dose: 150 mg Fluticasone/Salmeterol (Advair Diskus 250-50) 1 puff INH BID [facility] Last Admin: 10/18/18 08:50 Dose: 1 puff Senna/Docusate Sodium (Senna Plus) 1 tab PO BID PRN PRN Reason: Constipation Sertraline HCl (Zoloft) 50 mg PO QAM [facility] Last Admin: 10/18/18 08:37 Dose: 50 mg Warfarin Sodium (Coumadin) 0.5 mg PO SuTuWeThSa@1800 [facility] Last Admin: 10/16/18 19:34 Dose: 0.5 mg Warfarin Sodium (Pharmacy To Dose - Warfarin) 0 dose PO ASDIRECTED [facility] Discontinued Medications Ascorbic [facility] ([facility]itamin C) [facility] [place] Admin: 10/17/18 09:19 Dose: 500 mg Ceftriaxone Sodium (Rocephin) 1 gm IVPUSH ONETIME ONE Stop: 10/16/18 12:47 Last Admin: 10/16/18 13:40 Dose: 1 gm Digoxin (Lanoxin) 125 mcg PO DAILY@1800 [facility] Digoxin (Lanoxin) 63 mcg PO DAILY@1800 [facility] Sodium Chloride (Normal Saline) 1,000 mls @ 999 mls/hr IV .BOLUS ONE Stop: 10/16/18 11:30 Last Admin: 10/16/18 10:48 Dose: 999 mls/hr Sodium Chloride (Normal Saline) 500 mls @ 999 mls/hr IV .BOLUS [facility] Last Admin: 10/16/18 10:50 Dose: 999 mls/hr Sodium Chloride (Normal Saline) 500 mls @ 100 mls/hr IV ASDIRECTED [facility] Last Admin: 10/16/18 11:21 Dose: 100 mls/hr Nitroglycerin (Nitro-Dur 0.6 Mg/Hr) 0.6 mg TRDERM DAILY@0700 [facility] Last Admin: 10/17/18 14:08 Dose: Not Given Nitroglycerin (Nitro-Dur 0.2 Mg/Hr) 0.2 mg TRDERM DAILY@0700 [facility] Nitroglycerin (Nitro-Dur 0.4 Mg/Hr) 0.4 mg TRDERM 0700 [facility] Last Admin: 10/17/18 09:40 Dose: 0.4 mg Omeprazole (Omeprazole) 20 mg PO ACBREAKFAST [facility] Last Admin: 10/17/18 14:09 Dose: Not Given Warfarin Sodium (Coumadin) 2.5 mg PO ONETIME@1800 ONE Stop: 10/17/18 18:01 Last Admin: 10/17/18 18:15 Dose: 2.5 mg - Exam Quality Assessment: DVT Prophylaxis. No: Supplemental Oxygen General: Alert, Cooperative, No Acute Distress. No: Oriented Neck: Supple, No JVD Lungs: Clear to Auscultation, Normal Respiratory Effort. No: Crackles, Wheezing Cardiovascular: Irregular Rhythm. No: Tachycardia GI/Abdominal Exam: Normal Bowel Sounds, Soft, No Distention (Female) Exam: Deferred Extremities: No: Pedal Edema Peripheral Pulses: 1+: Radial (R), 2+: Radial (L) Skin: Warm, Dry, Other (Generalize pallor) Neurological: No: Normal Gait Psy/Mental Status: Other (opens eyes spontaneously not communicative) - Problem List Review Problem List Initiated/Reviewed/Updated: Yes - My Orders Last 24 Hours: My Active Orders 10/17/18 10:45 Warfarin Pharmacy to Dose [Pharmacy to Dose - Warfarin] 0 dose PO ASDIRECTED 10/17/18 11:00 Enoxaparin [Lovenox] 30 mg SUBCUT DAILY 10/17/18 12:00 cefTRIAXone [Rocephin] 1 gm IVPUSH Q24H 10/17/18 18:00 Digoxin [Lanoxin] 62.5 mcg PO DAILY@1800 10/17/18 20:40 CREATININE, URINE RAND/24 HR Routine 10/18/18 00:00 Turn and Reposition [RC] 0900 10/18/18 07:10 CBC WITH AUTO DIFF [HEME] Routine 10/18/18 09:00 Ranitidine [Zantac] 150 mg PO DAILY 10/18/18 Breakfast 2 Gram Sodium Diet [DIET] Soft Diet [DIET] 10/19/18 07:02 INR,PT,PROTHROMBIN TIME [COAG] DAILY 10/20/18 07:02 INR,PT,PROTHROMBIN TIME [COAG] DAILY - Plan Plan:: HISTORY OF PRESENT ILLNESS 83-year-old female who has had recent multiple admissions to the hospital was admitted last night through the ED due to elevated BUN and creatinine level. The provider at the [facility] who sari routine labs in due to elevating creatinine level sent patient to the emergency department for further evaluation. Patient has very limited communicative skills. She does have history of CKD stage 3: However October 02 creatinine 0.8, October 16 creatinine 3.9 Pertinent ED findings BUN 68/creatinine 3.67 (creatinine 3.9 on October 16) BNP 1600 (much lower than recent baseline) WBC 11.6/neutrophilia 82% Update today, patient sitting in chair, family on rounds, renal indices are improving, Intake significantly greater than output without signs of fluid overload status. Primary hospital problems Acute kidney injury, prerenal, likely diuretic/nephrotoxin induced/significant dehydration Suspect prerenal azotemia Dehydration, profound on admission and ongoing, improving Urinary tract infection, Rocephin Infiltrate, left lung base, suspect viral Chronic conditions -Atrial fibrillation, permanent, CVR, [id number] 5, rate controlled with digoxin , subtherapeutic INR 1.0 on admission -HFrEF: EF 25% on echocardiogram, holding lisinopril due to ALEC, BB, CCB, good map -Ischemic heart disease/CAD Imdur recently added 2/2 ischemia ECG recent NSTEMI , 2/2 demand ischemia, -HTN: Continue beta marci, -HLD, recently discontinued statin therapy. -COPD, advair 250-50 mcg BID. -Pulmonary hypertension -Depression, see plan below Disposition/MDM/overall plan --Cont with inpatient status due to ALEC, prerenal azotemia --hold diuretics --repeat fluid challenge today, then maint --monitor for fluid overload status however at this time she remains significant prerenal condition. --Strict intakes and output with dependent indwelling Carvajal catheter --Discontinue multiple medications. Continue with dig, BB and CCB, renal dosed Digoxin --Benji, Son/POA and other family members were present during rounds this morning. Long discussion regarding patient's current clinical condition, poor prognosis after returning back to long-term care, they do agree to hospice referral. Multiple medications were reviewed risks versus benefit and they do agree to stop all anticoagulation. They understand chance of stroke. Anticipate back to long-term care 1-2 days, renal indices are improving. Fluid challenge again today. Multiple medications were discontinued however will continue with digoxin and diltiazem, stop Advair, add CHRIS neb form. Revisited DNR status and the futility of current status regarding defibrillation. After full explanation son has agreed to full DNR/DNI. Hospice referral placed
[2018-10-18] MEDS ORDERED: Lactated Ringers 500 ML IV SCH (10:00)
[2018-10-18] MEDS ORDERED: Bisacodyl 10 MG Supp RECTAL PRN (10:06)
[2018-10-18] MEDS: cefTRIAXone 1 GM Vial IVPUSH SCH (11:47)
[2018-10-18] MEDS ORDERED: Lactated Ringers 1,000 ML IV SCH (13:35)
[2018-10-18] MEDS: Digoxin 125 MCG Tab PO SCH (19:07)
[2018-10-18] MEDS ORDERED: Piperacillin/Tazobactam 3.375 GM in Sodium Chloride 0.9% 100 ML IV SCH (20:00)
[2018-10-18] MEDS: Albuterol/Ipratropium 3.0-0.5 MG/3 ML Neb Soln NEB SCH (20:22)
[2018-10-18] MEDS: Sodium Chloride 0.9% 1,000 ML IV SCH (20:27)
[2018-10-18] MEDS: Piperacillin/Tazobactam/Dext 3.375 GM in Premix Bag 1 BAG IV SCH (20:29)
[2018-10-19] MEDS: Piperacillin/Tazobactam/Dext 3.375 GM in Premix Bag 1 BAG IV SCH (03:52)
[2018-10-19] MEDS: Nitroglycerin 0.2 MG/HR Transdermal Patch TRDERM SCH (06:42)
[2018-10-19] MEDS: Albuterol/Ipratropium 3.0-0.5 MG/3 ML Neb Soln NEB SCH (08:21)
[2018-10-19] MEDS: Acetaminophen 650 MG Tab.ER PO SCH (08:22)
[2018-10-19] MEDS: Metoprolol Tartrate 50 MG Tab PO SCH (08:25)
[2018-10-19] MEDS: Diltiazem 180 MG Cap.CD PO SCH (08:27)
[2018-10-19 08:28] VITALS: BP 136/68
[2018-10-19 08:38] LABS: ANION GAP 19.4 mmol/L (5-15)
[2018-10-19] MEDS ORDERED: [UNRECOGNIZED DRUG - OTHER] PO SCH (09:00)
[2018-10-19] MEDS ORDERED: Polyethylene Glycol 3350 Powder 17 GM Packet PO SCH (09:00)
[2018-10-19] MEDS ORDERED: IRON PO SCH (09:00)
[2018-10-19] MEDS ORDERED: Potassium Chloride 20 MEQ Packet PO SCH (09:00)
[2018-10-19] MEDS ORDERED: MULTIVITAMINS PO SCH (09:00)
[2018-10-19] MEDS ORDERED: [UNRECOGNIZED DRUG - MIXTURE] PO SCH (09:00)
[2018-10-19] MEDS: Sodium Chloride 0.9% 1,000 ML IV SCH (09:07)
[2018-10-19] MEDS ORDERED: Piperacillin/Tazobactam/Dext 3.375 GM in Premix Bag 1 BAG IV SCH (10:00)
--- NOTE | 2018-10-19 11:17 | PCM.DCSUM1 ---
Discharge Summary - Hospital Course Free Text/Narrative:: Date of admission: 10/16/18 Date of discharge: 10/19/18 Admission diagnoses: # Acute kidney injury # Chronic kidney disease, stage 3 # Dehydration # Possible pneumonia, healthcare acquired, LLL # Bacteruria # Subtherapeutic INR # Atrial fibrillation, chronic # HFrEF # Ischemic cardiomyopathy # CAD # HTN # COPD # Constipation # HLD # Anemia # OA, generalized # Depression # Palliative care status Discharge diagnoses: # Acute kidney injury # Chronic kidney disease, stage 3 # Dehydration # Pneumonia, healthcare acquired, LLL # Bacteruria without urinary tract infection # Subtherapeutic INR # Atrial fibrillation, chronic # HFrEF # Ischemic cardiomyopathy # CAD # HTN # COPD # Constipation # HLD # Anemia # OA, generalized # Depression # Palliative care status Hospital course: 83-year-old female with a history notable for coronary artery disease, ischemic cardiomyopathy/heart failure (09/07/17 echo with EF 25% and global hypokinesis as well as markedly dilated left atrium) and atrial fibrillation who is a resident of [facility] who has had multiple recent hospitalizations for cardiopulmonary disease exacerbations who was noted to have significantly elevated creatinine on 10/16/18. Was sent to the ED where repeat labs confirmed elevated creatinine at 3.67 and BUN of 68 superimposed on previously stable CKD, stage 3. She was also noted to have mild leukocytosis with neutrophilia, LLL infiltrate and bacteruria. She was admitted for further work-up and management. ALEC was felt to be diuretic induced along with limited po intake in the setting of ongoing clinical decline. Nephrotoxic medications were discontinued, IVF were initiated, and oral fluids encouraged with subsequent modest improvements in creatinine throughout stay. Ceftriaxone and Zosyn were given with improvement in leukocytosis and neutrophilia. She required no oxygen throughout stay and had no significant pulmonary decline. Urine culture was without growth. Most notably during stay, several discussions were had by patient and family with rounding provider as well as nursing and social media marketing manager staff regarding patient's overall status, prognosis, and goals of care. On 10/18/18, family desired referral to hospice and several medications discontinued (most notably anticoagulation) after a detailed discussion about risks and benefits. Code status was changed to DNR/DNI as well. It was decided that patient would be transferred back to [facility] and hospice care initiated. Carvajal catheter remained in place for comfort per family's request. Discharge medication changes: - Augmentin 500/125mg daily x5 days to complete 7 day antibiotic course - Multiple prior medications discontinued, as above Follow-up recommendations: - Appt on [facility] [place] [facility] rounds - [facility] referral for hospice - Discharge Data Discharge Date: 10/19/18 Discharge Disposition: DC/Tfer to SNF 03 Condition: Fair - Patient Summary/Data Consults: Consultations 10/18/18 10:15 Consult to Hospice [CONS] Routine - Patient Instructions Diet: Pureed Activity: As Tolerated - Discharge Plan *PRESCRIPTION DRUG MONITORING PROGRAM REVIEWED*: Not Applicable *COPY OF PRESCRIPTION DRUG MONITORING REPORT IN PATIENT MEAGAN: Not Applicable Prescriptions/Med Rec: Amoxicillin/Clavulanate K [Augmentin 500-125 MG] 1 tab PO DAILY 5 Days #5 tablet Home Medications: Home Meds Nitroglycerin [Nitrostat] 0.4 mg SL Q5M PRN 08/29/16 [History] Acetaminophen [Tylenol Arthritis] 650 mg PO BID 12/18/16 [History] Metoprolol Tartrate [Lopressor] 100 mg PO BID 12/18/16 [History] Sennosides/Docusate Sodium [Senna Plus Tablet] 1 tab PO BID PRN 06/30/17 [ History] Diltiazem [Cardizem CD] 180 mg PO QAM 09/21/18 [History] Albuterol/Ipratropium [DuoNeb 3.0-0.5 MG/3 ML] 3 ml INH Q6H PRN #30 neb [Rx] Nitroglycerin [Nitro-Dur] 1 each TD DAILY 10/06/18 [History] Nystatin [Nystatin Crm] 1 applic TOP TID 10/06/18 [History] Acetaminophen [Tylenol Arthritis] 650 mg PO BID PRN #0 10/19/18 [Rx] Amoxicillin/Clavulanate K [Augmentin 500-125 MG] 1 tab PO DAILY 5 Days #5 tablet 10/19/18 [Rx] Bisacodyl [Dulcolax] 10 mg RECTAL DAILY PRN supp 10/19/18 [Rx] Digoxin 62.5 mcg PO DAILY #30 tablet 10/19/18 [Rx] Referrals: [facility] [Outside] Jana Perry MD [Primary Care Provider] - ([facility] [place] [facility] rounds) - Discharge Summary/Plan Comment DC Time >30 min.: Yes - General Info Admission Dx/Problem (Free Text: Denies complaints this morning. Agrees that she would like to go back to [facility]. Drinking fluids and eating pureed diet. No new concerns. - Patient Data Vitals - Most Recent: Last Vital Signs Temp 36.8 C 10/19/18 06:03 Pulse 68 10/19/18 08:27 Resp 18 10/19/18 06:03 BP 136/68 10/19/18 08:27 Pulse Ox 96 10/19/18 08:00 Weight - Most Recent: 76.204 kg I&O - Last 24 hours: Intake & Output 10/18/18 10/19/18 10/19/18 22:59 06:59 14:59 Intake Total 671 816 Output Total 200 200 Balance 471 616 Lab Results - Last 24 hrs: Laboratory Results - last 24 hr 10/17/18 10/19/18 10/19/18 Range/Units 20:40 07:15 08:04 WBC 12.55 H (5.00-10.00) 10^3/uL RBC 3.98 (3.80-5.50) 10^6/uL Hgb 11.4 L (12.0-16.0) g/dL Hct 34.7 L (37.0-47.0) % MCV 87.2 (82.0-92.0) fL MCH 28.6 (27.0-31.0) pg MCHC 32.9 (32.0-36.0) g/dL RDW 19.0 H (11.5-14.5) % Plt Count 202 (150-400) 10^3/uL MPV 11.5 H (7.4-10.4) fL Immature Gran % (Auto) 0.2 (0.0-5.0) % Neut % (Auto) 81.8 H (50.0-70.0) % Lymph % (Auto) 5.7 L (20.0-40.0) % Dent % (Auto) 7.3 (2.0-8.0) % Eos % (Auto) 4.5 H (1.0-3.0) % Baso % (Auto) 0.5 (0.0-1.0) % Immature Gran # (Auto) 0.03 (0.00-0.50) 10^3/uL Neut # (Auto) 10.27 H (2.50-7.00) 10^3/uL Lymph # (Auto) 0.71 L (1.00-4.00) 10^3/uL Dent # (Auto) 0.92 H (0.10-0.80) 10^3/uL Eos # (Auto) 0.56 H (0.10-0.30) 10^3/uL Baso # (Auto) 0.06 (0.00-0.10) 10^3/uL Sodium 143 (136-145) mmol/L Potassium 3.5 (3.3-5.3) mmol/L Chloride 112 (98-115) mmol/L Carbon Dioxide 15.1 L (21.0-32.0) mmol/L Anion Gap 19.4 H (5-15) mmol/L BUN 53 H* (6-25) mg/dL Creatinine 2.90 H (0.51-1.17) mg/dL Est Cr Clr Drug Dosing 12.25 mL/min Estimated GFR (MDRD) 15 mL/min Glucose 84 (75 - 99) mg/dL Calcium 7.6 L (8.7-10.3) mg/dL Ur Creatinine Concen 49 mg/dL ELIZABETH Results - Last 24 hrs: Microbiology 10/16/18 10:30 Urine Culture - Final Urine, Catheterized NO GROWTH AFTER 2 DAYS Med Orders - Current: Current Medications Acetaminophen (Tylenol Arthritis Pain) 650 mg PO BID [facility] Last Admin: 10/19/18 08:22 Dose: 650 mg Acetaminophen (Tylenol Arthritis Pain) 650 mg PO DAILY PRN PRN Reason: Pain Albuterol/Ipratropium (Duoneb 3.0-0.5 Mg/3 Ml) 3 ml NEB Q12H [facility] Last Admin: 10/19/18 08:21 Dose: 3 ml Bisacodyl (Dulcolax) 10 mg RECTAL DAILY PRN PRN Reason: Constipation Ceftriaxone Sodium (Rocephin) 1 gm IVPUSH Q24H [facility] Last Admin: 10/18/18 11:47 Dose: 1 gm Digoxin (Lanoxin) 62.5 mcg PO DAILY@1800 [facility] Last Admin: 10/18/18 19:07 Dose: 62.5 mcg Diltiazem HCl (Cardizem Cd) 180 mg PO QAM [facility] Last Admin: 10/19/18 08:27 Dose: 180 mg Piperacillin Sod/Tazobactam (Sod 2.25 gm/ Sodium Chloride) 50 mls @ 100 mls/hr IV Q8H [facility] Metoprolol Tartrate (Lopressor) 100 mg PO BID [facility] Last Admin: 10/19/18 08:25 Dose: 100 mg Miscellaneous Information (Remove Patch) 1 ea TRDERM DAILY@1900 [facility] Last Admin: 10/18/18 19:07 Dose: 1 ea Nitroglycerin (Nitrostat) 0.4 mg SL Q5M PRN PRN Reason: Chest Pain Nitroglycerin (Nitro-Dur 0.2 Mg/Hr) 0.2 mg TRDERM 0700 [facility] Last Admin: 10/19/18 06:42 Dose: 0.2 mg Discontinued Medications Albuterol/Ipratropium (Duoneb 3.0-0.5 Mg/3 Ml) 3 ml INH Q6H PRN PRN Reason: Shortness of Breath Ascorbic Acid (Vitamin C) [facility] [place] Admin: 10/17/18 09:19 Dose: 500 mg Ceftriaxone Sodium (Rocephin) 1 gm IVPUSH ONETIME ONE Stop: 10/16/18 12:47 Last Admin: 10/16/18 13:40 Dose: 1 gm Digoxin (Lanoxin) 125 mcg PO DAILY@1800 [facility] Digoxin (Lanoxin) 63 mcg PO DAILY@1800 [facility] Enoxaparin Sodium (Lovenox) 30 mg SUBCUT DAILY [facility] Last Admin: 10/18/18 08:33 Dose: 30 mg Ferrous Sulfate (Ferrous Sulfate) 325 mg PO QAM [facility] Last Admin: 10/18/18 08:37 Dose: 325 mg Sodium Chloride (Normal Saline) 1,000 mls @ 999 mls/hr IV .BOLUS ONE Stop: 10/16/18 11:30 Last Admin: 10/16/18 10:48 Dose: 999 mls/hr Sodium Chloride (Normal Saline) 500 mls @ 999 mls/hr IV .BOLUS [facility] Last Admin: 10/16/18 10:50 Dose: 999 mls/hr Sodium Chloride (Normal Saline) 500 mls @ 100 mls/hr IV ASDIRECTED [facility] Last Admin: 10/16/18 11:21 Dose: 100 mls/hr Lactated Ringer's (Ringers, Lactated) 1,000 mls @ 75 mls/hr IV ASDIRECTED [facility] Last Admin: 10/18/18 00:43 Dose: 75 mls/hr Lactated Ringer's (Ringers, Lactated) 500 mls @ 150 mls/hr IV ASDIRECTED [facility] Last Admin: 10/18/18 11:48 Dose: 150 mls/hr Lactated Ringer's (Ringers, Lactated) 1,000 mls @ 85 mls/hr IV ASDIRECTED [facility] Piperacillin Sod/Tazobactam (Sod 3.375 gm/ Sodium Chloride) 100 mls @ 200 mls/ hr IV Q6H AGATHA Sodium Chloride (Normal Saline) 1,000 mls @ 85 mls/hr IV ASDIRECTED [facility] Last Admin: 10/19/18 09:07 Dose: 85 mls/hr Piperacillin/Tazobactam/ (Dextrose 3.375 gm/ Premix) 50 mls @ 100 mls/hr IV Q6H [facility] Last Admin: 10/19/18 03:52 Dose: 100 mls/hr Lisinopril (Prinivil) 2.5 mg PO DAILY [facility] Last Admin: 10/17/18 09:19 Dose: 2.5 mg Nitroglycerin (Nitro-Dur 0.6 Mg/Hr) 0.6 mg TRDERM DAILY@0700 [facility] Last Admin: 10/17/18 14:08 Dose: Not Given Nitroglycerin (Nitro-Dur 0.2 Mg/Hr) 0.2 mg TRDERM DAILY@0700 [facility] Nitroglycerin (Nitro-Dur 0.4 Mg/Hr) 0.4 mg TRDERM 0700 [facility] Last Admin: 10/17/18 09:40 Dose: 0.4 mg Non-Formulary Medication (Chlorophyllin/Thymol [Chlorophyll]) 1 tab PO DAILY [facility] Non-Formulary Medication (Multivitamins/Min/Ca/Fa/Iron [Thera-M]) 1 tab PO QAM [facility] Nystatin (Nystatin Crm) 0 gm TOP TID [facility] Last Admin: 10/18/18 08:38 Dose: 1 applic Omeprazole (Omeprazole) 20 mg PO ACBREAKFAST [facility] Last Admin: 10/17/18 14:09 Dose: Not Given Phytonadione (Vitamin K) 200 mcg PO DAILY [facility] Last Admin: 10/18/18 09:25 Dose: Not Given Polyethylene Glycol (Miralax) 17 gm PO QAM [facility] Potassium Chloride (Klor-Con) 20 meq PO DAILY [facility] Ranitidine HCl (Zantac) 150 mg PO DAILY [facility] Last Admin: 10/18/18 08:36 Dose: 150 mg Fluticasone/Salmeterol (Advair Diskus 250-50) 1 puff INH BID [facility] Last Admin: 10/18/18 08:50 Dose: 1 puff Senna/Docusate Sodium (Senna Plus) 1 tab PO BID PRN PRN Reason: Constipation Sertraline HCl (Zoloft) 50 mg PO QAM [facility] Last Admin: 10/18/18 08:37 Dose: 50 mg Warfarin Sodium (Coumadin) 0.5 mg PO SuTuWeThSa@1800 [facility] Last Admin: 10/16/18 19:34 Dose: 0.5 mg Warfarin Sodium (Coumadin) 2.5 mg PO ONETIME@1800 ONE Stop: 10/17/18 18:01 Last Admin: 10/17/18 18:15 Dose: 2.5 mg Warfarin Sodium (Pharmacy To Dose - Warfarin) 0 dose PO ASDIRECTED [facility] - Exam Physical Findings Comments:: GENERAL: Elderly white female lying in hospital bed resting comfortably in no acute distress. HEENT: Normocephalic, atraumatic. Conjunctiva clear. Nares patent without discharge. Mucous membranes mildly dry. NECK: Supple, no masses. CV: Irregularly irregular, not tachycardic, no murmurs, rubs, or gallops. 2+ radial pulses. PULMONARY: Normal effort, faint rhonchi in LLL, no wheezes or rales. ABDOMEN: Positive bowel sounds, soft, nontender, nondistended. EXTREMITIES: No edema, cyanosis, or clubbing. MUSCULOSKELETAL: Moves all extremities well. NEUROLOGICAL: No obvious deficits. DERMATOLOGIC: No rashes or suspicious lesions in exposed areas. PSYCHIATRIC: Alert, interactive, confused, smiling.
[2018-10-19] MEDS ORDERED: Piperacillin/Tazobactam 2.25 GM in Sodium Chloride 0.9% 50 ML IV SCH (12:00)
== END 2018-10-19 11:36 | DRG 682 ==
LOC: KA.ED 09:20 → KA.MS 13:00
PROVIDERS: ADMIT Physician Assistant Surgical; ATTEND Family Medicine
DX: N17.9 Acute kidney failure, unspecified (principal); J18.1 Lobar pneumonia, unspecified organism; I50.22 Chronic systolic (congestive) heart failure; R41.82 Altered mental status, unspecified; N39.0 Urinary tract infection, site not specified; I13.0 Hypertensive heart and chronic kidney disease with heart failure and stage 1 through stage 4 chronic kidney disease, or unspecified chronic kidney disease; J15.9 Unspecified bacterial pneumonia; J44.0 Chronic obstructive pulmonary disease with (acute) lower respiratory infection; H54.7 Unspecified visual loss; Y95 Nosocomial condition; F03.90 Unspecified dementia, unspecified severity, without behavioral disturbance, psychotic disturbance, mood disturbance, and anxiety; I48.91 Unspecified atrial fibrillation; Z51.5 Encounter for palliative care; N13.0 Hydronephrosis with ureteropelvic junction obstruction; D50.9 Iron deficiency anemia, unspecified; F32.9 Major depressive disorder, single episode, unspecified; I50.9 Heart failure, unspecified; R79.1 Abnormal coagulation profile; I27.20 Pulmonary hypertension, unspecified; E78.00 Pure hypercholesterolemia, unspecified; I48.2 Chronic atrial fibrillation; I25.2 Old myocardial infarction; R32 Unspecified urinary incontinence; I25.5 Ischemic cardiomyopathy; N18.3 Chronic kidney disease, stage 3 (moderate); M19.90 Unspecified osteoarthritis, unspecified site; D64.9 Anemia, unspecified; E61.1 Iron deficiency; Z86.73 Personal history of transient ischemic attack (TIA), and cerebral infarction without residual deficits; Z66 Do not resuscitate; Z87.440 Personal history of urinary (tract) infections; Z79.01 Long term (current) use of anticoagulants; Z79.899 Other long term (current) drug therapy
CPT/HCPCS: 36415; 36416; 51702; 71045; 80048; 80162; 81001; 82570; 83880; 84145; 84300; 85025; 85610; 86140; 87086; 94640; 96360; 96361; 99284; 99285-25; A4217; A9270-GY; J0696; J1650; J2543; J7030; J7040; J7120; J7620-GY